=== PATIENT | male | born 1940 | race Hispanic/Latino ===

== ENCOUNTER 2017-06-02 06:43 | Emergency (ER) | payer MEDICARE, OTHER ==
[2017-06-02 06:54] VITALS: BMI 25.0
[2017-06-02 07:01] VITALS: RESP 18; TEMP 98.3
[2017-06-02] MEDS ORDERED: Oxycodone/Acetaminophen 5/325 mg Tab PO STA (07:28)
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
--- NOTE | 2017-06-02 08:02 | CT ---
PROCEDURE: CT HEAD WITHOUT CONTRAST. HISTORY: fall with persistent headache COMPARISON: 11/17/2014 TECHNIQUE: Axial computed tomography images were obtained through the head/brain without intravenous contrast. Radiation dose: Total exam DLP = 629 mGy-cm. This CT exam was performed using one or more of the following dose reduction techniques: Automated exposure control, adjustment of the mA and/or kV according to patient size, and/or use of iterative reconstruction technique. FINDINGS: HEMORRHAGE: No intracranial hemorrhage. BRAIN: No mass effect or edema. Chronic microvascular changes are seen in the periventricular white matter. There is focal encephalomalacia and atrophy in the right frontal lobe VENTRICLES: Unremarkable. No hydrocephalus. CALVARIUM: Unremarkable. PARANASAL SINUSES: Unremarkable as visualized. No significant inflammatory changes. MASTOID AIR CELLS: Unremarkable as visualized. No inflammatory changes. OTHER FINDINGS: None. IMPRESSION: No acute findings
[2017-06-02 08:27] VITALS: BP 127/86; PULSE 95; O2SAT 98
== END 2017-06-02 08:32 | disposition home or self-care (01) ==
LOC: ED 06:43
DX: S06.0X0A Concussion without loss of consciousness, initial encounter (principal); F17.210 Nicotine dependence, cigarettes, uncomplicated; Y04.8XXA Assault by other bodily force, initial encounter; Y92.89 Other specified places as the place of occurrence of the external cause

== ENCOUNTER 2017-12-02 20:41 | Inpatient (IN) | payer MEDICARE, OTHER ==
[2017-12-02 21:02] VITALS: BMI 21.7
--- NOTE | 2017-12-02 21:21 | ED PDOC ---
Arrival/HPI - General Chief Complaint: Altered Mental Status Time Seen by Provider: 12/02/17 20:55 Historian: Spouse EM Caveat: Altered Mental Status - History of Present Illness Narrative History of Present Illness (Text): 12/02/17 21:18 77 year old male, whose past medical history includes COPD and per-diabetes, presents to the emergency department accompanied by for Altered Mental Status. As per patient's , patient was himself yesterday, but began not feeling well. Patient this afternoon was not responding and not behaving as himself. Patient is a heavy drinker and his last drink was 3 days ago . Patient denies any current pain. HPI and ROS limited due to patient's altered mental status. PMD: Dr. Rivera Past Medical History - Provider Review Nursing Documentation Reviewed: Yes - Infectious Disease Hx of Infectious Diseases: None - Tetanus Immunization Tetanus Immunization: Unknown - Cardiac Hx Cardiac Disorders: Yes Hx Hypertension: Yes - Pulmonary Hx Respiratory Disorders: Yes Hx Chronic Obstructive Pulmonary Disease (COPD): Yes - Endocrine/Metabolic Other/Comment: borderline diabetic - Genitourinary/Gynecological Hx Incontinence: Yes - Psychiatric Hx Substance Use: No - Past Surgical History Past Surgical History: No Previous - Anesthesia Hx Anesthesia: No Hx Anesthesia Reactions: No Hx Malignant Hyperthermia: No - Suicidal Assessment Feels Threatened In Home Enviroment: No Family/Social History - Physician Review Nursing Documentation Reviewed: Yes Family/Social History: No Known Family HX Smoking Status: Heavy Smoker > 10 Cigarettes Daily Hx Alcohol Use: Yes (4 beers and 5 shots of bourbon per day.) Hx Substance Use: No Hx Substance Use Treatment: No Allergies/Home Meds Allergies/Adverse Reactions: Allergies No Known Allergies Allergy (Verified 12/02/17 20:47) Home Medications: Home Meds Medication Instructions Recorded Confirmed Albuterol HFA [Ventolin HFA 90 1 puff INH PRN PRN 12/02/17 12/02/17 mcg/actuation (8 g)] Metoprolol Tartrate [Lopressor] 25 mg PO DAILY 12/02/17 12/02/17 Review of Systems - Physician Review All systems were reviewed & negative as marked: Yes - Review of Systems Systems not reviewed;Unavailable: Altered Mental Status Physical Exam Vital Signs Reviewed: Yes Vital Signs Temp Pulse Resp BP Pulse Ox 12/02/17 22:49 99.1 F 90 18 128/68 100 12/02/17 20:57 100 H 17 123/87 94 L Blood Pressure: Normal Pulse: Tachycardic Respiratory Rate: Normal Appearance: Positive for: Well-Appearing, Non-Toxic, Other (Poor hygiene, frail and ordorous) Pain Distress: None Mental Status: Positive for: Alert and Oriented X 3, other (Drowsy) - Systems Exam Head: Present: Atraumatic, Normocephalic Pupils: Present: PERRL Extroacular Muscles: Present: EOMI Conjunctiva: Present: Normal Mouth: Present: Dry Neck: Present: Normal Range of Motion Respiratory/Chest: Present: Clear to Auscultation, Good Air Exchange. No: Respiratory Distress, Accessory Muscle Use Cardiovascular: Present: Regular Rate and Rhythm, Normal S1, S2. No: Murmurs Abdomen: No: Tenderness, Distention, Peritoneal Signs Back: Present: Normal Inspection Upper Extremity: Present: Normal Inspection. No: Cyanosis, Edema Lower Extremity: Present: Normal Inspection. No: Edema Neurological: Present: GCS=15, CN II-XII Intact, Motor Func Grossly Intact, Normal Sensory Function, Other (Normal strength and sensation) Skin: Present: Warm, Dry, Normal Color. No: Rashes Psychiatric: Present: Alert, Oriented x 3, Other (Drowsy) Medical Decision Making ED Course and Treatment: 12/02/17 21:18 Impression: 77 year old male presents for AMS, last time known well yesterday, unknown time ; family saw him today at noon for the first time with this AMS Differential Diagnosis included but are not limited to: Dehydration VS infection VS alcohol withdrawal delirium VS Stroke Plan: -- VBG -- Head CT w/o contrast -- EKG -- Labs -- Chest X-ray -- Blood Culture, Urine Culture -- Glucose, Blood, POC -- Urinary Straight Catherization -- Urinalysis -- Reassess and disposition Prior Visits: Notes and results from previous visits were reviewed. Patient was last seen in the emergency department on Progress Notes: EKG shows NSR at [address] elevation. Normal Intervals. Interpreted by me. CXR Impression: As read by me, left lower lobe pneumonia. EXAM: CT Head Without Intravenous Contrast Dictated and Authenticated by: Coby Knott MD 12/02/2017 10:09 PM IMPRESSION: Streak artifact limits evaluation of the skull base. No evidence of acute intracranial hemorrhage. Correlate clinically 12/02/17 23:22 Case discussed with Horologist and Dr. Barriga who is aware and agrees to come to the ER for an ICU consult. WBC elevated. CXR ?LLPNA but may be positional will tx with Cefepime 12/02/17 23:38 Dr. Barriga seen and evaluated patient. Accepts patient into hospitalist service to Telemetry for AMS. We agree that this is possibly alcohol withdrawal but cannot exclude CVA. Aspirin PO given. Currently no tremors or tongue fasculations but altered so will Ativan 2mg IV and CIWA ordered. - Lab Interpretations Lab Results: 12/02/17 22:06 12/02/17 22:06 Lab Results 12/02/17 22:45: PT 13.6 H, INR 1.19 H, APTT 32.9 12/02/17 22:06: pO2 143 H, VBG pH 7.40, VBG pCO2 41.0, VBG HCO3 25.4, VBG Total CO2 26.7, VBG O2 Sat (Calc) 99.2 H, VBG Base Excess 0.5, VBG Potassium 3.8, Sodium 135.0, Chloride 101.0, Glucose 160 H, Lactate 1.2, FiO2 21.0, Venous Blood Potassium 3.8 12/02/17 22:06: Alcohol, Quantitative < 10 12/02/17 22:06: Salicylates < 1 L, Acetaminophen < 10.0 L 12/02/17 22:06: Ammonia < 9 L 12/02/17 22:06: Sodium 138, Chloride 100, Potassium 4.0, Carbon Dioxide 26, Anion Gap 15, BUN 16, Creatinine 0.9, Est GFR ( Amer) > 60, Est GFR (Non- Af Amer) > 60, Random Glucose 156 H, Calcium 9.4, Phosphorus 3.0, Magnesium 1.8 , Total Bilirubin 0.6, AST 27, ALT 25, Alkaline Phosphatase 53, Lactate Dehydrogenase 449, Total Creatine Kinase 90, Troponin I 0.01, Total Protein 7.4 , Albumin 4.1, Globulin 3.3, Albumin/Globulin Ratio 1.2 12/02/17 22:06: WBC 14.5 H D, RBC 5.50, Hgb 15.7, Hct 45.9, MCV 83.5, MCH 28.5, MCHC 34.2, RDW 14.3, Plt Count 270, MPV 9.8, Gran % 77.2 H, Lymph % (Auto) 10.5 L, [place] % (Auto) 12.1 H, Eos % (Auto) 0.1 L, Baso % (Auto) 0.1, Gran # 11.18 H, Lymph # (Auto) 1.5, [place] # (Auto) 1.8 H, Eos # (Auto) 0.0, Baso # (Auto) 0.02 12/02/17 21:31: POC Glucose (mg/dL) 128 H I have reviewed the lab results: Yes - RAD Interpretation Radiology Orders: 12/02/17 21:17 HEAD W/O CONTRAST [CT] Stat 12/02/17 21:19 CHEST PORTABLE [RAD] Stat - EKG Interpretation Interpreted by ED Physician: Yes Type: 12 lead EKG - Medication Orders Current Medication Orders: Sodium Chloride (Sodium Chloride 0.9%) 1,000 mls @ 250 mls/hr IV .Q4H MATT Last Admin: 12/02/17 22:59 Dose: 250 mls/hr eMAR Start Stop Document 12/02/17 22:59 J[facility] (Rec: 12/02/17 22:59 [id number] Intravenous Solution Start Date 12/02/17 Start Time 22:59 Discontinued Medications Albuterol/Ipratropium (Duoneb 3 Mg/0.5 Mg (3 Ml) Ud) 3 ml IH STAT STA Stop: 12/02/17 21:46 Last Admin: 12/02/17 22:48 Dose: 3 ml Cefepime HCl (Maxipime 2gm) 2 gm in 100 mls @ 100 mls/hr IVPB STAT STA PRN Reason: Protocol Stop: 12/02/17 23:36 Last Admin: 12/02/17 22:59 Dose: 100 mls/hr eMAR Start Stop Document 12/02/17 22:59 JOL (Rec: 12/02/17 22:59 [id number]) Intravenous Solution Start Date 12/02/17 Start Time 22:59 End Date 12/02/17 End time 23:59 Total Infusion Time 60 Lorazepam (Ativan) 2 mg IVP ONCE ONE PRN Reason: Protocol Stop: 12/02/17 23:38 NIHSS Scale ([place]) Time Performed: 20:55 - How Severe is the Stoke Baseline Level of Consciousness: 1=Drowsy LOC to Questions: 0=Both comments correct LOC to commands: 0=Obeys both correctly Best Gaze: 0=Normal Visual: 0=No visual loss Facial: 0=Normal Motor Arm - Left: 1=Drift noted before 10 sec Motor Arm - Right: 1=Drift noted before 10 sec Motor Leg - Left: 1=Drift before 5 sec Motor Leg - Right: 1=Drift before 5 sec Limb Ataxia: 1=Present Upper or Lower Sensory: 0=Normal Best Language: 0=No aphasia Dysarthia: 0=Normal articulation Extinction & Inattention (Neglect): 0=Normal, no object Score: 6 Risk Level: Mod Stroke Risk rTPA Inclusion/Exclusion - Refusal of Treatment Patient Refused Treatment: No - Inclusion Criteria for Altepase Patient is 18 years or Older: Yes The Clinical Diagnosis of Ischemic Stroke That is Causing a Potentially Disabling Neurological Deficit: No Time of Onset is Well Established to be Less Than 270 Minute Before Treatment Would Begin: No Risk/Benefit Discussed With Patient/Family Member Present: No - Scribe Statement The provider has reviewed the documentation as recorded by the Bonifacio Chapinibe Attestation: All medical record entries made by the Tavaresibe were at my direction and personally dictated by me. I have reviewed the chart and agree that the record accurately reflects my personal performance of the history, physical exam, medical decision making, and the department course for this patient. I have also personally directed, reviewed, and agree with the discharge instructions and disposition. Disposition/Present on Arrival - Present on Arrival Any Indicators Present on Arrival: No History of DVT/PE: No History of Uncontrolled Diabetes: No Urinary Catheter: No History of Decub. Ulcer: No History Surgical Site Infection Following: None - Disposition Have Diagnosis and Disposition been Completed?: Yes Diagnosis: Altered mental status, Dehydration, Alcohol withdrawal, Pneumonia Disposition Time: 23:49 Patient Plan: Admission Condition: GUARDED Referrals: Erum Buck MD [Primary Care Provider] - Follow up with primary Forms: [employer] (Turkish)
[2017-12-02] MEDS ORDERED: Albuterol-Ipratrop 3 mg / 0.5 (3 ml) UD IH STA (21:45)
[2017-12-02 22:12] LABS: VENOUS BLOOD GAS BASE EXCESS 0.5 mmol/L (0.0-2.0); VENOUS BLOOD GAS PO2 143 mm/Hg (30-55)
[2017-12-02 22:13] LABS: BASO # 0.02 K/mm3 (0.0-2.0); BASO % 0.1 % (0.0-3.0); EOS % 0.1 % (1.5-5.0); GRAN # 11.18 (1.4-6.5); GRAN % 77.2 % (50.0-68.0); HEMOGLOBIN 15.7 g/dL (14.0-18.0); LYMPH # 1.5 (1.2-3.4); LYMPH % 10.5 % (22.0-35.0); MEAN CELL VOLUME 83.5 fl (80.0-105.0); MEAN CORPUSCULAR HEMOGLOBIN 28.5 pg (25.0-35.0); MEAN CORPUSCULAR HGB CONC 34.2 g/dl (31.0-37.0); MEAN PLATELET VOLUME 9.8 fl (7.0-11.0); MONO # 1.8 (0.1-0.6); MONO % 12.1 % (1.0-6.0); RBC 5.5 10^6/uL (3.5-6.1); RED CELL DISTRIBUTION WIDTH 14.3 % (11.5-14.5); WHITE BLOOD COUNT 14.5 10^3/ul (4.5-11.0)
[2017-12-02 22:23] LABS: ACETAMINOPHEN < 10.0 ug/ml (10.0-20.0); SALICYLATE < 1 mg/dL (2.0-20.0)
[2017-12-02 22:27] LABS: ALB/GLOB RATIO 1.2 (1.1-1.8); ALBUMIN 4.1 g/dL (3.0-4.8); ALT/SGPT 25 U/L (7-56); AST/SGOT 27 U/L (17-59); BLOOD UREA NITROGEN 16 mg/dL (7-21); CALCIUM 9.4 mg/dL (8.4-10.5); GFR AFRICAN-AMERICAN > 60; GFR NON-AFRICAN AMERICAN > 60
[2017-12-02 22:35] LABS: TROPONIN I 0.01 ng/mL
[2017-12-02] MEDS ORDERED: Cefepime IV 2 gm in NS 2 GM/100 ML BAG IVPB STA (22:37)
[2017-12-02] MEDS ORDERED: Sodium Chloride 0.9% 1,000 ML IV SCH (23:00)
[2017-12-02 23:06] LABS: INR 1.19 (0.93-1.08); PARTIAL THROMBOPLASTIN TIME 32.9 Seconds (25.1-36.5); PROTHROMBIN TIME 13.6 SECONDS (9.4-12.5)
[2017-12-03] MEDS ORDERED: Vitamins A & D Oint UD Foilpak TOP PRN
[2017-12-03] MEDS ORDERED: Albuterol-Ipratrop 3 mg / 0.5 (3 ml) UD IH PRN
[2017-12-03 00:09] LABS: HDL CHOLESTEROL 59 mg/dL (29-60)
[2017-12-03] MEDS ORDERED: Multivitamin (MVI) 10 ML, Thiamine 100 MG, Folic Acid 1 MG in Sodium Chloride 0.9% 1,00... IV SCH (00:15)
[2017-12-03 00:21] LABS: LDL CHOLESTEROL 52 mg/dL (0-129)
--- NOTE | 2017-12-03 00:56 | CP.PCM.HP ---
<Perico Royal - Last Filed: 12/03/17 01:09> History of Present Illness - History of Present Illness History of Present Illness: Mr. Helms is a 77 year old male with a past medical history significant for COPD, NIDDM2, alcohol abuse and tobacco abuse who presents with two days of AMS. Patient at bedside to provide HPI information. Patient oriented to person, town and year. Patients reports that patient at baseline communicates verbally, is independent with ADL's and ambulates without assistance. For the past two days, patient has been sitting in his chair staring off into the distance without the television on, which is unusual for him. She reports that brought him in today because she noticed that he urinated on the couch. Patients also endorses that patient has had no complaints immediately prior to or during this episode. While he usually drinks alcohol daily, patient has not had anything to drink for the past three days. She also denies any recent medication changes. Patient uncooperative with ROS questioning at this time. 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; Lives at home with in [place] Allergies: NKDA Home Medications: As per MAR Present on Admission - Present on Admission Any Indicators Present on Admission: No Review of Systems - Review of Systems Systems not reviewed;Unavailable: Uncooperative Past Patient History - Infectious Disease Hx of Infectious Diseases: None - Tetanus Immunizations Tetanus Immunization: Unknown - Past Social History Smoking Status: Heavy Smoker > 10 Cigarettes Daily - CARDIAC Hx Cardiac Disorders: Yes Hx Hypertension: Yes - PULMONARY Hx Respiratory Disorders: Yes Hx Chronic Obstructive Pulmonary Disease (COPD): Yes - ENDOCRINE/METABOLIC Other/Comment: borderline diabetic - GENITOURINARY/GYNECOLOGICAL Hx Incontinence: Yes - PSYCHIATRIC Hx Substance Use: No - ANESTHESIA Hx Anesthesia: No Hx Anesthesia Reactions: No Hx Malignant Hyperthermia: No Meds Allergies/Adverse Reactions: Allergies Allergy/AdvReac Type Severity Reaction Status Date / Time No Known Allergies Allergy Verified 12/02/17 20:47 Physical Exam - Constitutional Appears: No Acute Distress, Unkempt - Head Exam Head Exam: ATRAUMATIC, NORMOCEPHALIC - Eye Exam Eye Exam: EOMI, Normal appearance, PERRL. absent: Conjunctival injection, Nystagmus, Periorbital swelling, Periorbital tenderness, Scleral icterus Pupil Exam: NORMAL ACCOMODATION, PERRL. absent: Fixed, Irregular, Miosis, Mydriatic, Unequal - ENT Exam ENT Exam: Mucous Membranes Dry - Neck Exam Neck exam: Positive for: Full Rom, Normal Inspection. Negative for: Lymphadenopathy, Meningismus, Tenderness, Thyromegaly - Respiratory Exam Respiratory Exam: Clear to Auscultation Bilateral, NORMAL BREATHING PATTERN. absent: Accessory Muscle Use, Chest Wall Tenderness, Decreased Breath Sounds, Prolonged Expiratory Phase, Rales, Rhonchi, Wheezes, Respiratory Distress, Stridor - Cardiovascular Exam Cardiovascular Exam: REGULAR RHYTHM, RRR, +S1, +S2. absent: Bradycardia, Tachycardia, Clicks, Diastolic murmur, Gallop, Irregular Rhythm, JVD, Rubs, +S4 , Systolic Murmur - GI/Abdominal Exam GI & Abdominal Exam: Normal Bowel Sounds, Soft. absent: Bruit, Diminished Bowel Sounds, Distended, Firm, Guarding, Hernia, Hyperactive Bowel Sounds, Hypoactive Bowel Sounds, Mass, Organomegaly, Pulsatile Mass, Rebound, Rigid, Tenderness - Extremities Exam Extremities exam: Positive for: full ROM, normal capillary refill, normal inspection, pedal pulses present. Negative for: calf tenderness, joint swelling , pedal edema, tenderness - Back Exam Back exam: absent: CVA tenderness (L), CVA tenderness (R), muscle spasm, paraspinal tenderness, rash noted, tenderness, vertebral tenderness - Neurological Exam Additional comments: Oriented to person, town and year - Skin Skin Exam: Dry, Intact, Warm Results - Vital Signs Recent Vital Signs: Last Vital Signs Temp 99.1 F 12/02/17 22:49 Pulse 90 12/02/17 22:49 Resp 18 12/02/17 22:49 BP 128/68 12/02/17 22:49 Pulse Ox 100 12/02/17 22:49 - Labs Result Diagrams: 12/02/17 22:06 12/02/17 22:06 Assessment & Plan - Assessment and Plan (Free Text) Assessment: 77 year old male with a past medical history significant for COPD, NIDDM2, alcohol abuse and tobacco abuse who presents with two days of AMS. Plan: 1. AMS -CT Head without any acute abnormalities or hemorrhage -Chest X-Ray pending official radiologist interpretation; ED physician interpreted this to show LLL PNA with one dose Cefepime given in ED and procal pending -EKG showed sinus tachycardia with normal intervals and no changes in ST segments -ABG pending -UA/UDS pending -MRI Brain with/without contrast in AM -NPO with swallow evaluation pending -Neurochecks Q2 -Sue catheter in place -Maintain HOB above 30 degrees -Seizure, Aspiration and Fall precautions in place -Neurology consulted, all recommendations appreciated 2. History of Alcohol Withdrawal/Abuse -Alcohol <10 -Ativan 1mg IVP Q6 PRN -Banana Bag at 200mls/hr -Zofran PRN for N/V -Precautions as noted above -CIWA Q4 -Cessation recommendations provided 3. History of COPD -Duonebs Q4H MATT and Q2H PRN -Maintain O2 saturation above 92% 4. History of NIDDM2 -SSI-Low and Accuchecks Q6 -A1c pending 5. History of Tobacco Abuse -Nicotine TD 21mg daily -Cessation recommendations provided GI Prophylaxis: Protonix DVT Prophylaxis: Heparin Patient seen and case discussed with attending, Dr. Barriga. Brayan PGY1 - Date & Time Date: 12/03/17 Time: 00:48 Decision To Admit - Pt Status Changed To: Hospital Disposition Of: Inpatient Admission - Admit Certification Admit to Inpatient:: After my assessment, the patient will require hospitalization for at least two midnights. This is because of the severity of symptoms shown, intensity of services needed, and/or the medical risk in this patient being treated as an outpatient. - . Bed Request Type: Telemetry <Antonino Barriga - Last Filed: 12/03/17 02:11> Results - Vital Signs Recent Vital Signs: Last Vital Signs Temp 99.1 F 12/02/17 22:49 Pulse 90 12/02/17 22:49 Resp 18 12/02/17 22:49 BP 128/68 12/02/17 22:49 Pulse Ox 100 12/02/17 22:49 - Labs Result Diagrams: 12/02/17 22:06 12/02/17 22:06 Attending/Attestation - Attestation I have personally seen and examined this patient.: Yes I have fully participated in the care of the patient.: Yes I have reviewed all pertinent clinical information: Yes Notes (Text): 12/03/17 02:10 Patient was seen when he was in bed # 4 in the ER. Agree with history, physical examination, assessment and plan.
[2017-12-03] MEDS: Insulin Reg-LOW-Coverage SC SCH ×4 (02:04→19:45)
[2017-12-03 03:47] LABS: URINE BILIRUBIN NEGATIVE (NEGATIVE); URINE BLOOD TRACE-INTACT (NEGATIVE); URINE GLUCOSE (UA) NEGATIVE (NEGATIVE); URINE LEUKOCYTE ESTERASE NEGATIVE Leu/uL (NEGATIVE); URINE PROTEIN 30 mg/dL (<30 mg/dL); URINE UROBILINOGEN 0.2 E.U./dL (<1 E.U./dL)
[2017-12-03 03:48] LABS: URINE APPEARANCE SL CLOUDY (CLEAR); URINE COLOR YELLOW (YELLOW)
[2017-12-03 04:07] LABS: URINE BACTERIA FEW (NEG); URINE RBC 0 - 2 /hpf (0-2); URINE WBC NEGATIVE /hpf (0-6)
[2017-12-03 04:22] LABS: BARBITURATES, UR NEGATIVE (NEGATIVE); BENZODIAZEPINES, UR NEGATIVE (NEGATIVE); OPIATES, UR NEGATIVE (NEGATIVE); PHENCYCLIDINE, UR NEGATIVE (NEGATIVE)
[2017-12-03 07:11] LABS: BASO # 0.02 K/mm3 (0.0-2.0); BASO % 0.1 % (0.0-3.0); EOS % 0.3 % (1.5-5.0); GRAN # 10.41 (1.4-6.5); GRAN % 73.5 % (50.0-68.0); HEMOGLOBIN 14.5 g/dL (14.0-18.0); LYMPH # 1.7 (1.2-3.4); MEAN CELL VOLUME 83.8 fl (80.0-105.0); MEAN CORPUSCULAR HEMOGLOBIN 27.9 pg (25.0-35.0); MEAN CORPUSCULAR HGB CONC 33.3 g/dl (31.0-37.0); MEAN PLATELET VOLUME 9.9 fl (7.0-11.0); MONO % 14.1 % (1.0-6.0); RBC 5.19 10^6/uL (3.5-6.1); RED CELL DISTRIBUTION WIDTH 14.5 % (11.5-14.5); WHITE BLOOD COUNT 14.2 10^3/ul (4.5-11.0)
[2017-12-03 07:45] LABS: ALB/GLOB RATIO 1.2 (1.1-1.8); ALBUMIN 3.6 g/dL (3.0-4.8); ALT/SGPT 26 U/L (7-56); AST/SGOT 29 U/L (17-59); BLOOD UREA NITROGEN 14 mg/dL (7-21); CALCIUM 8.7 mg/dL (8.4-10.5); GFR AFRICAN-AMERICAN > 60; GFR NON-AFRICAN AMERICAN > 60
--- NOTE | 2017-12-03 08:19 | CP.PCM.CON ---
History of Present Illness - History of Present Illness History of Present Illness: Neuro Consult note for Dr. Spring Reason for consult: AMS please note history as per EMR as patient is altered and there was no family at bedside 77yo male PMHx COPD, NIDDM2, alcohol and tobacco abuse [place] [facility] [place] for 2 days of AMS. As per EMR, reported that the patient at baseline communicates verbally, is independent with ADL's and ambulates without assistance. For two days prior to being admitted however the patient was staring off and also had an episode of urinary incontinence. As per EMR the patient's also endorsed that he had no complaints immediately prior to or during this episode. While he usually drinks alcohol daily, patient has not had anything to drink for the past three days. She also denied any recent changes in medication. 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; Lives at home with in [place] ALL: NKDA Meds: As per MAR Review of Systems - Review of Systems Systems not reviewed;Unavailable: Altered Mental Status Past Patient History - Infectious Disease Hx of Infectious Diseases: None - Tetanus Immunizations Tetanus Immunization: Unknown - Past Social History Smoking Status: Unknown If Ever Smoked - CARDIAC Hx Cardiac Disorders: Yes Hx Hypercholesterolemia: Yes Hx Hypertension: Yes - PULMONARY Hx Respiratory Disorders: Yes Hx Chronic Obstructive Pulmonary Disease (COPD): Yes - NEUROLOGICAL Hx Neurological Disorder: No - HEENT Hx HEENT Problems: No - RENAL Hx Chronic Kidney Disease: No - ENDOCRINE/METABOLIC Hx Endocrine Disorders: Yes Other/Comment: borderline diabetic - HEMATOLOGICAL/ONCOLOGICAL Hx Blood Disorders: No - INTEGUMENTARY Hx Dermatological Problems: No - MUSCULOSKELETAL/RHEUMATOLOGICAL Hx Musculoskeletal Disorders: No Hx Falls: No (pt denies) - GASTROINTESTINAL Hx Gastrointestinal Disorders: No - GENITOURINARY/GYNECOLOGICAL Hx Genitourinary Disorders: Yes Hx Incontinence: Yes - PSYCHIATRIC Hx Psychophysiologic Disorder: Yes Hx Substance Use: No (denies) Other/Comment: Alcohol use (4 beers and 5 shots of bourdon daily) - SURGICAL HISTORY Hx Surgeries: No - ANESTHESIA Hx Anesthesia: No Hx Anesthesia Reactions: No Hx Malignant Hyperthermia: No Meds Allergies/Adverse Reactions: Allergies Allergy/AdvReac Type Severity Reaction Status Date / Time No Known Allergies Allergy Verified 12/02/17 20:47 - Medications Medications: Current Medications Albuterol/Ipratropium (Duoneb 3 Mg/0.5 Mg (3 Ml) Ud) 3 ml IH Q2H PRN PRN Reason: Shortness of Breath Albuterol/Ipratropium (Duoneb 3 Mg/0.5 Mg (3 Ml) Ud) 3 ml IH [id number] [facility] Heparin Sodium (Porcine) (Heparin) 5,000 units SC Q12 MATT PRN Reason: Protocol Multivitamins/Vitamin C 10 ml/Thiamine HCl 100 mg/ Folic Acid 1 mg/ Sodium Chloride 1,011.2 mls @ 200 mls/hr IV .Q5H4M [facility] Last Admin: 12/03/17 06:09 Dose: 200 mls/hr Ceftriaxone Sodium (Rocephin 1 Gram Ivpb) 1 gm in 100 mls @ 100 mls/hr IVPB DAILY [facility] PRN Reason: Protocol Azithromycin (Zithromax 500mg In Ns) 500 mg in 250 mls @ 167 mls/hr IVPB DAILY [facility] PRN Reason: Protocol Insulin Human Regular (Humulin R Low) 0 units SC Q6H MATT PRN Reason: Protocol Last Admin: 12/03/17 08:11 Dose: Not Given Lorazepam (Ativan) 1 mg IVP Q6H PRN; Protocol PRN Reason: Symptoms of alcohol withdrawl Nicotine (Nicoderm Cq) 1 patch TD DAILY [facility] Ondansetron HCl (Zofran Inj) 4 mg IVP Q4H PRN PRN Reason: Nausea/Vomiting Pantoprazole Sodium (Protonix Inj) 40 mg IVP DAILY [facility] Vitamin A (Vitamin A & D Oint Ud Foilpak) 1 ea TOP Q2 PRN PRN Reason: Please use for dry lips Physical Exam - Constitutional Appears: Confused, Other (uncooperative with exam) - Neurological Exam Neurological exam: Altered Additional comments: moving all extremities and withdraws to pain - Psychiatric Exam Psychiatric exam: Flat Affect - Skin Skin Exam: Dry, Intact Results - Vital Signs Recent Vital Signs: Last Vital Signs Temp 98.4 F 12/03/17 06:00 Pulse 74 12/03/17 06:00 Resp 20 12/03/17 06:00 BP 149/80 12/03/17 06:00 Pulse Ox 96 12/03/17 06:00 - Labs Result Diagrams: 12/03/17 06:30 12/03/17 06:30 Labs: Laboratory Results - last 24 hr 12/03/17 12/03/17 12/03/17 02:19 02:19 06:30 WBC 14.2 H RBC 5.19 Hgb 14.5 Hct 43.5 MCV 83.8 MCH 27.9 MCHC 33.3 RDW 14.5 Plt Count 258 MPV 9.9 Gran % 73.5 H Lymph % (Auto) 12.0 L [place] % (Auto) 14.1 H Eos % (Auto) 0.3 L Baso % (Auto) 0.1 Gran # 10.41 H Lymph # (Auto) 1.7 [place] # (Auto) 2.0 H Eos # (Auto) 0.0 Baso # (Auto) 0.02 Sodium Potassium Chloride Carbon Dioxide Anion Gap BUN Creatinine Est GFR ( Amer) Est GFR (Non-Af Amer) Random Glucose Calcium Phosphorus Magnesium Total Bilirubin AST ALT Alkaline Phosphatase NT-Pro-B Natriuret Pep Total Protein Albumin Globulin Albumin/Globulin Ratio Urine Color Yellow Urine Appearance Sl cloudy Urine pH 6.0 Ur Specific [place] 1.020 Urine Protein 30 H Urine Glucose (UA) Negative Urine Ketones 15 H Urine Blood Trace-intact H Urine Nitrate Negative Urine Bilirubin Negative Urine Urobilinogen 0.2 Ur Leukocyte Esterase Negative Urine RBC 0 - 2 Urine WBC Negative Ur Epithelial Cells 4 - 5 Urine Bacteria Few Urine Other Mucus Urine Opiates Screen Negative Urine Methadone Screen Negative Ur Barbiturates Screen Negative Ur Phencyclidine Scrn Negative Ur Amphetamines Screen Negative U Benzodiazepines Scrn Negative U Oth Cocaine Metabols Negative U Cannabinoids Screen Negative 12/03/17 12/03/17 06:30 06:30 WBC RBC Hgb Hct MCV MCH MCHC RDW Plt Count MPV Gran % Lymph % (Auto) [place] % (Auto) Eos % (Auto) Baso % (Auto) Gran # Lymph # (Auto) [place] # (Auto) Eos # (Auto) Baso # (Auto) Sodium 140 Potassium 3.9 Chloride 104 Carbon Dioxide 26 Anion Gap 13 BUN 14 Creatinine 0.8 Est GFR ( Amer) > 60 Est GFR (Non-Af Amer) > 60 Random Glucose 119 H Calcium 8.7 Phosphorus 2.9 Magnesium 1.8 Total Bilirubin 0.6 AST 29 ALT 26 Alkaline Phosphatase 51 NT-Pro-B Natriuret Pep 495 H Total Protein 6.6 Albumin 3.6 Globulin 3.0 Albumin/Globulin Ratio 1.2 Urine Color Urine Appearance Urine pH Ur Specific [place] Urine Protein Urine Glucose (UA) Urine Ketones Urine Blood Urine Nitrate Urine Bilirubin Urine Urobilinogen Ur Leukocyte Esterase Urine RBC Urine WBC Ur Epithelial Cells Urine Bacteria Urine Other Urine Opiates Screen Urine Methadone Screen Ur Barbiturates Screen Ur Phencyclidine Scrn Ur Amphetamines Screen U Benzodiazepines Scrn U Oth Cocaine Metabols U Cannabinoids Screen Assessment & Plan - Assessment and Plan (Free Text) Assessment: 77yo male PMHx COPD, NIDDM2, alcohol and tobacco abuse presented [place] [facility] [place] for 2 days of AMS Plan: -AMS likely secondary to seizures given patient's clinical picture -load patient with 1gm Keppra and start patient on Keppra 500 bid -Head CT: chronic changes - generalized cererbal atrophy and periventricular chronic microvascular changes with chronic appearing right frontal lobe subcortical encephalomalacia changes stable since 06/02/2017. No interval hemorrhage or mass effect seen. -CTA head/neck: heavily calcified plaque at the L carotid bifurcation with complete occlusion of the internal carotid; occlusion of the left internal carotid. -f/u MRI -f/u EEG -NPO -seizure and aspiration precautions -fall risk -HoB above [address] Saw Nelson PGY2
[2017-12-03] MEDS: Albuterol-Ipratrop 3 mg / 0.5 (3 ml) UD IH SCH ×4 (08:25→20:05)
[2017-12-03 08:41] LABS: HDL CHOLESTEROL 48 mg/dL (29-60)
--- NOTE | 2017-12-03 08:43 | CT ---
PROCEDURE: CT HEAD WITHOUT CONTRAST. HISTORY: altered mental status COMPARISON: 06/02/2017 TECHNIQUE: Axial computed tomography images were obtained through the head/brain without intravenous contrast. Radiation dose: Total exam DLP = 979 mGy-cm. This CT exam was performed using one or more of the following dose reduction techniques: Automated exposure control, adjustment of the mA and/or kV according to patient size, and/or use of iterative reconstruction technique. FINDINGS: HEMORRHAGE: No intracranial hemorrhage. BRAIN: No mass effect or edema. There is generalized cerebral atrophy and periventricular chronic microvascular changes with chronic appearing right frontal lobe subcortical encephalomalacia changes stable since 06/02/2017 VENTRICLES: Ventricular size appropriate to the atrophy and age -similar-appearing CALVARIUM: Unremarkable. PARANASAL SINUSES: Minimal mucosal thickening of the ethmoidal and bilateral maxillary sinuses. MASTOID AIR CELLS: Unremarkable as visualized. No inflammatory changes. OTHER FINDINGS: Atherosclerotic vascular calcifications present. . IMPRESSION: Chronic changes as above. No interval hemorrhage or mass effect seen. Concordant results (preliminary interpretation) provided by [facility].
[2017-12-03 08:51] LABS: LDL CHOLESTEROL 44 mg/dL (0-129)
--- NOTE | 2017-12-03 09:34 | CT ---
PROCEDURE: CT Angiography of the neck with contrast HISTORY: ams COMPARISON: None available. TECHNIQUE: Contiguous axial images of the neck were obtained from the level of the skull-base to the superior mediastinum in the arteriographic phase of enhancement. Coronal and sagittal reformats or also generated. IV contrast dose: Radiation Dose - DLP: mGy-cm This CT exam was performed using one or more of the following dose reduction techniques: Automated exposure control, adjustment of the mA and/or kV according to patient size, and/or use of iterative reconstruction technique. FINDINGS: RIGHT CAROTID ARTERIES: There is a calcified plaque in the right carotid bifurcation. There is no significant stenosis. LEFT CAROTID ARTERIES: There is a heavily calcified plaque at the left carotid bifurcation with complete occlusion of the internal carotid VERTEBRAL ARTERIES: Right Vertebral Artery: Normal. Left Vertebral Artery: Normal. OTHER FINDINGS: None. IMPRESSION: Heavily calcified plaque at the left carotid bifurcation with complete occlusion of the internal carotid CT Angiography of the Brain. HISTORY: ams COMPARISON: None available. TECHNIQUE: CT angiography of the intracranial arteries was performed. Coronal and sagittal maximum intensity projection reformated images were generated. This CT exam was performed using one or more of the following dose reduction techniques: Automated exposure control, adjustment of the mA and/or kV according to patient size, and/or use of iterative reconstruction technique. FINDINGS: INTERNAL CEREBRAL ARTERIES: Occlusion of the left internal carotid ANTERIOR CEREBRAL ARTERIES: Unremarkable. A1 and A2 segments are widely patent. Smaller distal branches unremarkable, as visualized. MIDDLE CEREBRAL ARTERIES: Unremarkable. M1 and M2 segments are widely patent. Perisylvian branches grossly symmetric. POSTERIOR CIRCULATION: Basilar Artery: Unremarkable. Distal Vertebral Arteries: Unremarkable. Posterior Cerebral Arteries: Unremarkable. Posterior Inferior Cerebellar Arteries: Unremarkable. ANEURYSM/ VASCULAR MALFORMATIONS: None. OTHER FINDINGS: None. IMPRESSION: Occlusion of the left internal carotid.
[2017-12-03] MEDS: cefTRIAXone 1 gm 1 GM/100 ML BAG IVPB SCH (10:03)
--- NOTE | 2017-12-03 10:55 | CP.PCM.CON ---
History of Present Illness - History of Present Illness History of Present Illness: Vascular surgery consult note for Dr. Salmeron HPI: 77 yo M with PMH of COPD, DM, EtOH abuse, and tobacco abuse who initially presented for altered mental status. Consultation requested for complete left ICA stenosis. Patient normally drinks heavily, but had not been drinking for two days prior to presentation. Yesterday, patient was found by his , sitting at home, staring blankly, with repetitive left arm movements, and was responding to questions very slowly, and after multiple repeated prompts. This behavior was strange, relative to his normal behavior according to the spouse. 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 Currently, patient is responding to questions. He is oriented to person, but only intermittently oriented to place and time. He is able to provide some history, and is answering most questions appropriately and obeying most simple commands, but only very slowly after multiple prompts. He denies any pain, nausea, vomiting, fever, chills, diarrhea, recent confusion, or weakness. He reports numbness and tingling in both hands for the past 2-3 days, and a headache for the past 2-3 days. reports that before yesterday, he was acting mostly normal. 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; Lives at home with in [place] Allergies: NKDA Home Medications: Patient is prescribed inhalers, nebulized breathing treatments , and oral antidiabetic medications, but is not complaint with his medications Past Patient History - Infectious Disease Hx of Infectious Diseases: None - Tetanus Immunizations Tetanus Immunization: Unknown - Past Social History Smoking Status: Unknown If Ever Smoked - CARDIAC Hx Cardiac Disorders: Yes Hx Hypercholesterolemia: Yes Hx Hypertension: Yes - PULMONARY Hx Respiratory Disorders: Yes Hx Chronic Obstructive Pulmonary Disease (COPD): Yes - NEUROLOGICAL Hx Neurological Disorder: No - HEENT Hx HEENT Problems: No - RENAL Hx Chronic Kidney Disease: No - ENDOCRINE/METABOLIC Hx Endocrine Disorders: Yes Other/Comment: borderline diabetic - HEMATOLOGICAL/ONCOLOGICAL Hx Blood Disorders: No - INTEGUMENTARY Hx Dermatological Problems: No - MUSCULOSKELETAL/RHEUMATOLOGICAL Hx Musculoskeletal Disorders: No Hx Falls: No (pt denies) - GASTROINTESTINAL Hx Gastrointestinal Disorders: No - GENITOURINARY/GYNECOLOGICAL Hx Genitourinary Disorders: Yes Hx Incontinence: Yes - PSYCHIATRIC Hx Psychophysiologic Disorder: Yes Hx Substance Use: No (denies) Other/Comment: Alcohol use (4 beers and 5 shots of bourdon daily) - SURGICAL HISTORY Hx Surgeries: No - ANESTHESIA Hx Anesthesia: No Hx Anesthesia Reactions: No Hx Malignant Hyperthermia: No Meds Allergies/Adverse Reactions: Allergies Allergy/AdvReac Type Severity Reaction Status Date / Time No Known Allergies Allergy Verified 12/02/17 20:47 - Medications Medications: Current Medications Albuterol/Ipratropium (Duoneb 3 Mg/0.5 Mg (3 Ml) Ud) 3 ml IH Q2H PRN PRN Reason: Shortness of Breath Albuterol/Ipratropium (Duoneb 3 Mg/0.5 Mg (3 Ml) Ud) 3 ml IH [id number] [facility] Last Admin: 12/03/17 08:25 Dose: 3 ml Heparin Sodium (Porcine) (Heparin) 5,000 units SC Q12 [facility] PRN Reason: Protocol Multivitamins/Vitamin C 10 ml/Thiamine HCl 100 mg/ Folic Acid 1 mg/ Sodium Chloride 1,011.2 mls @ 200 mls/hr IV .Q5H4M [facility] Last Admin: 12/03/17 06:09 Dose: 200 mls/hr Ceftriaxone Sodium (Rocephin 1 Gram Ivpb) 1 gm in 100 mls @ 100 mls/hr IVPB DAILY [facility] PRN Reason: Protocol Last Admin: 12/03/17 10:03 Dose: 100 mls/hr Azithromycin (Zithromax 500mg In Ns) 500 mg in 250 mls @ 167 mls/hr IVPB DAILY [facility] PRN Reason: Protocol Insulin Human Regular (Humulin R Low) 0 units SC Q6H [facility] PRN Reason: Protocol Last Admin: 12/03/17 08:11 Dose: Not Given Lorazepam (Ativan) 1 mg IVP Q6H PRN; Protocol PRN Reason: Symptoms of alcohol withdrawl Nicotine (Nicoderm Cq) 1 patch TD DAILY [facility] Last Admin: 12/03/17 10:05 Dose: 1 patch Ondansetron HCl (Zofran Inj) 4 mg IVP Q4H PRN PRN Reason: Nausea/Vomiting Pantoprazole Sodium (Protonix Inj) 40 mg IVP DAILY [facility] Last Admin: 12/03/17 10:05 Dose: 40 mg Vitamin A (Vitamin A & D Oint Ud Foilpak) 1 ea TOP Q2 PRN PRN Reason: Please use for dry lips Physical Exam - Constitutional Appears: Non-toxic, Confused, Chronically Ill - Head Exam Head Exam: ATRAUMATIC, NORMOCEPHALIC - Eye Exam Eye Exam: EOMI, PERRL - ENT Exam ENT Exam: Mucous Membranes Moist - Respiratory Exam Respiratory Exam: Wheezes, NORMAL BREATHING PATTERN - Cardiovascular Exam Cardiovascular Exam: RRR, +S1, +S2 - GI/Abdominal Exam GI & Abdominal Exam: Normal Bowel Sounds, Soft. absent: Tenderness - Neurological Exam Neurological exam: Altered, CN II-XII Intact Additional comments: He is oriented to person, but only intermittently oriented to place and time. Obeying simple commands, answering most questions appropriately, but only very slowly after multiple prompts. Moving all extremities with intent. Equal strength in all four extremities - Skin Skin Exam: Dry, Intact Results - Vital Signs Recent Vital Signs: Last Vital Signs Temp 98.4 F 12/03/17 06:00 Pulse 74 12/03/17 06:00 Resp 20 12/03/17 06:00 BP 149/80 12/03/17 06:00 Pulse Ox 96 12/03/17 06:00 - Labs Result Diagrams: 12/03/17 06:30 12/03/17 06:30 Labs: Laboratory Results - last 24 hr 12/03/17 12/03/17 12/03/17 02:19 02:19 06:30 WBC 14.2 H RBC 5.19 Hgb 14.5 Hct 43.5 MCV 83.8 MCH 27.9 MCHC 33.3 RDW 14.5 Plt Count 258 MPV 9.9 Gran % 73.5 H Lymph % (Auto) 12.0 L Cotton % (Auto) 14.1 H Eos % (Auto) 0.3 L Baso % (Auto) 0.1 Gran # 10.41 H Lymph # (Auto) 1.7 Cotton # (Auto) 2.0 H Eos # (Auto) 0.0 Baso # (Auto) 0.02 Sodium Potassium Chloride Carbon Dioxide Anion Gap BUN Creatinine Est GFR ( Amer) Est GFR (Non-Af Amer) Random Glucose Calcium Phosphorus Magnesium Total Bilirubin AST ALT Alkaline Phosphatase NT-Pro-B Natriuret Pep Total Protein Albumin Globulin Albumin/Globulin Ratio Triglycerides Cholesterol LDL Cholesterol Direct HDL Cholesterol Urine Color Yellow Urine Appearance Sl cloudy Urine pH 6.0 Ur Specific [place] 1.020 Urine Protein 30 H Urine Glucose (UA) Negative Urine Ketones 15 H Urine Blood Trace-intact H Urine Nitrate Negative Urine Bilirubin Negative Urine Urobilinogen 0.2 Ur Leukocyte Esterase Negative Urine RBC 0 - 2 Urine WBC Negative Ur Epithelial Cells 4 - 5 Urine Bacteria Few Urine Other Mucus Urine Opiates Screen Negative Urine Methadone Screen Negative Ur Barbiturates Screen Negative Ur Phencyclidine Scrn Negative Ur Amphetamines Screen Negative U Benzodiazepines Scrn Negative U Oth Cocaine Metabols Negative U Cannabinoids Screen Negative 12/03/17 12/03/17 12/03/17 06:30 06:30 08:00 WBC RBC Hgb Hct MCV MCH MCHC RDW Plt Count MPV Gran % Lymph % (Auto) Cotton % (Auto) Eos % (Auto) Baso % (Auto) Gran # Lymph # (Auto) Cotton # (Auto) Eos # (Auto) Baso # (Auto) Sodium 140 Potassium 3.9 Chloride 104 Carbon Dioxide 26 Anion Gap 13 BUN 14 Creatinine 0.8 Est GFR ( Amer) > 60 Est GFR (Non-Af Amer) > 60 Random Glucose 119 H Calcium 8.7 Phosphorus 2.9 Magnesium 1.8 Total Bilirubin 0.6 AST 29 ALT 26 Alkaline Phosphatase 51 NT-Pro-B Natriuret Pep 495 H Total Protein 6.6 Albumin 3.6 Globulin 3.0 Albumin/Globulin Ratio 1.2 Triglycerides 71 Cholesterol 118 L LDL Cholesterol Direct 44 HDL Cholesterol 48 Urine Color Urine Appearance Urine pH Ur Specific [place] Urine Protein Urine Glucose (UA) Urine Ketones Urine Blood Urine Nitrate Urine Bilirubin Urine Urobilinogen Ur Leukocyte Esterase Urine RBC Urine WBC Ur Epithelial Cells Urine Bacteria Urine Other Urine Opiates Screen Urine Methadone Screen Ur Barbiturates Screen Ur Phencyclidine Scrn Ur Amphetamines Screen U Benzodiazepines Scrn U Oth Cocaine Metabols U Cannabinoids Screen Assessment & Plan - Assessment and Plan (Free Text) Assessment: 77 yo M who initially presented with altered mental status; CTA showed completely occluded left internal carotid artery Plan: - Left ICA occlusion likely chronic; unlikely etiology of AMS; Neuro exam nonfocal; No surgical intervention indicated for completely occluded ICA - f/u neurology recommendations - f/u brain MRI - Further management per primary and neurology Discussed with Dr. Salmeron who agrees with above. Bradley Ann PGY1
--- NOTE | 2017-12-03 11:17 | RAD ---
HISTORY: altered mental status COMPARISON: No prior. FINDINGS: LUNGS: No active pulmonary disease. PLEURA: No significant pleural effusion identified, no pneumothorax apparent. CARDIOVASCULAR: Normal. OSSEOUS STRUCTURES: No significant abnormalities. VISUALIZED UPPER ABDOMEN: Normal. OTHER FINDINGS: None. IMPRESSION: No active disease.
[2017-12-03] MEDS: Azithromycin 500MG/NS 250ml 500 MG/250 ML BAG IVPB SCH (14:29)
--- NOTE | 2017-12-03 16:53 | CARD ---
APPROVED REPORT EKG Measurement Heart [id number] <Conclusion> Poor data quality, interpretation may be adversely affected Normal sinus rhythm Normal ECG
[2017-12-03] MEDS: Multivitamin (MVI) 10 ML, Thiamine 100 MG, Folic Acid 1 MG in Sodium Chloride 0.9% 1,00... IV SCH (17:29)
[2017-12-03] MEDS ORDERED: levETIRAcetam 1,000 MG in Sodium Chloride 0.9% 100 ML IV ONE (17:37)
--- NOTE | 2017-12-03 21:00 | CP.PCM.CON ---
History of Present Illness - History of Present Illness History of Present Illness: Infectious Disease Consultation: December 03, 2017 Mr. Helms is a 77 year old male with a past medical history significant for COPD, NIDDM2, alcohol abuse and tobacco abuse who presents with two days of AMS. Patient at bedside to provide HPI information. Patient oriented to person, town and year. Patients reports that patient at baseline communicates verbally, is independent with ADL's and ambulates without assistance. For the past two days, patient has been sitting in his chair staring off into the distance without the television on, which is unusual for him. She reports that brought him in today because she noticed that he urinated on the couch. Patients also endorses that patient has had no complaints immediately prior to or during this episode. While he usually drinks alcohol daily, patient has not had anything to drink for the past three days. She also denies any recent medication changes. Patient uncooperative with questioning. History obtained from the chart. Family not in the room when I examined the patient. 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 Active Medications Albuterol/Ipratropium (Duoneb 3 Mg/0.5 Mg (3 Ml) Ud) 3 ml IH Q2H PRN PRN Reason: Shortness of Breath Albuterol/Ipratropium (Duoneb 3 Mg/0.5 Mg (3 Ml) Ud) 3 ml IH [id number] [facility] Last Admin: 12/03/17 20:05 Dose: 3 ml Aspirin (Aspirin Supp) 81 mg RC DAILY [facility] Atorvastatin Calcium (Lipitor) 40 mg PO DIN [facility] Heparin Sodium (Porcine) (Heparin) 5,000 units SC Q12 [facility] PRN Reason: Protocol Last Admin: 12/03/17 12:42 Dose: 5,000 units Ceftriaxone Sodium (Rocephin 1 Gram Ivpb) 1 gm in 100 mls @ 100 mls/hr IVPB DAILY [facility] PRN Reason: Protocol Last Admin: 12/03/17 10:03 Dose: 100 mls/hr Azithromycin (Zithromax 500mg In Ns) 500 mg in 250 mls @ 167 mls/hr IVPB DAILY [facility] PRN Reason: Protocol Last Admin: 12/03/17 14:29 Dose: 167 mls/hr Multivitamins/Vitamin C 10 ml/Thiamine HCl 100 mg/ Folic Acid 1 mg/ Sodium Chloride 1,011.2 mls @ 100 mls/hr IV .Q10H7M [facility] Last Admin: 12/03/17 17:29 Dose: 100 mls/hr Levetiracetam (Keppra 500mg Ivpb) 500 mg in 100 mls @ 400 mls/hr IVPB Q12 [facility] Insulin Human Regular (Humulin R Low) 0 units SC Q6H [facility] PRN Reason: Protocol Last Admin: 12/03/17 15:00 Dose: Not Given Lorazepam (Ativan) 1 mg IVP Q6H PRN; Protocol PRN Reason: Symptoms of alcohol withdrawl Last Admin: 12/03/17 12:55 Dose: 1 mg Nicotine (Nicoderm Cq) 1 patch TD DAILY [facility] Last Admin: 12/03/17 10:05 Dose: 1 patch Ondansetron HCl (Zofran Inj) 4 mg IVP Q4H PRN PRN Reason: Nausea/Vomiting Pantoprazole Sodium (Protonix Inj) 40 mg IVP DAILY [facility] Last Admin: 12/03/17 10:05 Dose: 40 mg Thiamine HCl (Vitamin B1 Inj) 100 mg IM DAILY [facility] Vitamin A (Vitamin A & D Oint Ud Foilpak) 1 ea TOP Q2 PRN PRN Reason: Please use for dry lips Family Hx: DM2 - mother ROS: Unable to obtain from the patient, he is uncooperative with questioning. Past Patient History - Infectious Disease Hx of Infectious Diseases: None - Tetanus Immunizations Tetanus Immunization: Unknown - Past Social History Smoking Status: Unknown If Ever Smoked - CARDIAC Hx Cardiac Disorders: Yes Hx Hypercholesterolemia: Yes Hx Hypertension: Yes - PULMONARY Hx Respiratory Disorders: Yes Hx Chronic Obstructive Pulmonary Disease (COPD): Yes - NEUROLOGICAL Hx Neurological Disorder: No - HEENT Hx HEENT Problems: No - RENAL Hx Chronic Kidney Disease: No - ENDOCRINE/METABOLIC Hx Endocrine Disorders: Yes Other/Comment: borderline diabetic - HEMATOLOGICAL/ONCOLOGICAL Hx Blood Disorders: No - INTEGUMENTARY Hx Dermatological Problems: No - MUSCULOSKELETAL/RHEUMATOLOGICAL Hx Musculoskeletal Disorders: No Hx Falls: No (pt denies) - GASTROINTESTINAL Hx Gastrointestinal Disorders: No - GENITOURINARY/GYNECOLOGICAL Hx Genitourinary Disorders: Yes Hx Incontinence: Yes - PSYCHIATRIC Hx Psychophysiologic Disorder: Yes Hx Substance Use: No (denies) Other/Comment: Alcohol use (4 beers and 5 shots of bourdon daily) - SURGICAL HISTORY Hx Surgeries: No - ANESTHESIA Hx Anesthesia: No Hx Anesthesia Reactions: No Hx Malignant Hyperthermia: No Meds Allergies/Adverse Reactions: Allergies Allergy/AdvReac Type Severity Reaction Status Date / Time No Known Allergies Allergy Verified 12/02/17 20:47 - Medications Medications: Current Medications Albuterol/Ipratropium (Duoneb 3 Mg/0.5 Mg (3 Ml) Ud) 3 ml IH Q2H PRN PRN Reason: Shortness of Breath Albuterol/Ipratropium (Duoneb 3 Mg/0.5 Mg (3 Ml) Ud) 3 ml IH [id number] [facility] Last Admin: 12/03/17 20:05 Dose: 3 ml Aspirin (Aspirin Supp) 81 mg RC DAILY [facility] Atorvastatin Calcium (Lipitor) 40 mg PO DIN [facility] Heparin Sodium (Porcine) (Heparin) 5,000 units SC Q12 [facility]ATT PRN Reason: Protocol Last Admin: 12/03/17 12:42 Dose: 5,000 units Ceftriaxone Sodium (Rocephin 1 Gram Ivpb) 1 gm in 100 mls @ 100 mls/hr IVPB DAILY [facility] PRN Reason: Protocol Last Admin: 12/03/17 10:03 Dose: 100 mls/hr Azithromycin (Zithromax 500mg In Ns) 500 mg in 250 mls @ 167 mls/hr IVPB DAILY [facility] PRN Reason: Protocol Last Admin: 12/03/17 14:29 Dose: 167 mls/hr Multivitamins/Vitamin C 10 ml/Thiamine HCl 100 mg/ Folic Acid 1 mg/ Sodium Chloride 1,011.2 mls @ 100 mls/hr IV .Q10H7M [facility] Last Admin: 12/03/17 17:29 Dose: 100 mls/hr Levetiracetam (Keppra 500mg Ivpb) 500 mg in 100 mls @ 400 mls/hr IVPB Q12 [facility] Insulin Human Regular (Humulin R Low) 0 units SC Q6H [facility] PRN Reason: Protocol Last Admin: 12/03/17 15:00 Dose: Not Given Lorazepam (Ativan) 1 mg IVP Q6H PRN; Protocol PRN Reason: Symptoms of alcohol withdrawl Last Admin: 12/03/17 12:55 Dose: 1 mg Nicotine (Nicoderm Cq) 1 patch TD DAILY [facility] Last Admin: 12/03/17 10:05 Dose: 1 patch Ondansetron HCl (Zofran Inj) 4 mg IVP Q4H PRN PRN Reason: Nausea/Vomiting Pantoprazole Sodium (Protonix Inj) 40 mg IVP DAILY [facility] Last Admin: 12/03/17 10:05 Dose: 40 mg Thiamine HCl (Vitamin B1 Inj) 100 mg IM DAILY [facility] Vitamin A (Vitamin A & D Oint Ud Foilpak) 1 ea TOP Q2 PRN PRN Reason: Please use for dry lips Physical Exam - Constitutional Appears: Non-toxic, No Acute Distress, Unkempt, Confused - Head Exam Head Exam: ATRAUMATIC, NORMOCEPHALIC - Eye Exam Eye Exam: EOMI, PERRL Pupil Exam: NORMAL ACCOMODATION, PERRL - ENT Exam ENT Exam: Mucous Membranes Moist, Normal External Ear Exam, TM's Normal Bilaterally - Neck Exam Neck exam: Positive for: Full Rom, Normal Inspection - Respiratory Exam Respiratory Exam: Clear to Auscultation Bilateral, NORMAL BREATHING PATTERN. absent: Rales, Rhonchi, Wheezes - Cardiovascular Exam Cardiovascular Exam: REGULAR RHYTHM, RRR, +S1, +S2 - GI/Abdominal Exam GI & Abdominal Exam: Normal Bowel Sounds, Soft. absent: Distended, Tenderness - Extremities Exam Extremities exam: Positive for: full ROM, normal inspection - Neurological Exam Neurological exam: Alert, CN II-XII Intact Additional comments: AAO x 2 currently. - Psychiatric Exam Psychiatric exam: Agitated - Skin Skin Exam: Intact, Normal Color Results - Vital Signs Recent Vital Signs: Last Vital Signs Temp 98.4 F 12/03/17 06:00 Pulse 112 H 12/03/17 18:00 Resp 20 12/03/17 06:00 BP 149/80 12/03/17 06:00 Pulse Ox 96 12/03/17 06:00 - Labs Result Diagrams: 12/03/17 06:30 12/03/17 06:30 Labs: Laboratory Results - last 24 hr 12/03/17 12/03/17 12/03/17 02:19 02:19 06:30 WBC 14.2 H RBC 5.19 Hgb 14.5 Hct 43.5 MCV 83.8 MCH 27.9 MCHC 33.3 RDW 14.5 Plt Count 258 MPV 9.9 Gran % 73.5 H Lymph % (Auto) 12.0 L [place] % (Auto) 14.1 H Eos % (Auto) 0.3 L Baso % (Auto) 0.1 Gran # 10.41 H Lymph # (Auto) 1.7 [place] # (Auto) 2.0 H Eos # (Auto) 0.0 Baso # (Auto) 0.02 Sodium Potassium Chloride Carbon Dioxide Anion Gap BUN Creatinine Est GFR ( Amer) Est GFR (Non-Af Amer) POC Glucose (mg/dL) Random Glucose Calcium Phosphorus Magnesium Total Bilirubin AST ALT Alkaline Phosphatase NT-Pro-B Natriuret Pep Total Protein Albumin Globulin Albumin/Globulin Ratio Triglycerides Cholesterol LDL Cholesterol Direct HDL Cholesterol Urine Color Yellow Urine Appearance Sl cloudy Urine pH 6.0 Ur Specific [place] 1.020 Urine Protein 30 H Urine Glucose (UA) Negative Urine Ketones 15 H Urine Blood Trace-intact H Urine Nitrate Negative Urine Bilirubin Negative Urine Urobilinogen 0.2 Ur Leukocyte Esterase Negative Urine RBC 0 - 2 Urine WBC Negative Ur Epithelial Cells 4 - 5 Urine Bacteria Few Urine Other Mucus Urine Opiates Screen Negative Urine Methadone Screen Negative Ur Barbiturates Screen Negative Ur Phencyclidine Scrn Negative Ur Amphetamines Screen Negative U Benzodiazepines Scrn Negative U Oth Cocaine Metabols Negative U Cannabinoids Screen Negative 12/03/17 12/03/17 12/03/17 06:30 06:30 07:09 WBC RBC Hgb Hct MCV MCH MCHC RDW Plt Count MPV Gran % Lymph % (Auto) [place] % (Auto) Eos % (Auto) Baso % (Auto) Gran # Lymph # (Auto) [place] # (Auto) Eos # (Auto) Baso # (Auto) Sodium 140 Potassium 3.9 Chloride 104 Carbon Dioxide 26 Anion Gap 13 BUN 14 Creatinine 0.8 Est GFR ( Amer) > 60 Est GFR (Non-Af Amer) > 60 POC Glucose (mg/dL) 103 Random Glucose 119 H Calcium 8.7 Phosphorus 2.9 Magnesium 1.8 Total Bilirubin 0.6 AST 29 ALT 26 Alkaline Phosphatase 51 NT-Pro-B Natriuret Pep 495 H Total Protein 6.6 Albumin 3.6 Globulin 3.0 Albumin/Globulin Ratio 1.2 Triglycerides Cholesterol LDL Cholesterol Direct HDL Cholesterol Urine Color Urine Appearance Urine pH Ur Specific [place] Urine Protein Urine Glucose (UA) Urine Ketones Urine Blood Urine Nitrate Urine Bilirubin Urine Urobilinogen Ur Leukocyte Esterase Urine RBC Urine WBC Ur Epithelial Cells Urine Bacteria Urine Other Urine Opiates Screen Urine Methadone Screen Ur Barbiturates Screen Ur Phencyclidine Scrn Ur Amphetamines Screen U Benzodiazepines Scrn U Oth Cocaine Metabols U Cannabinoids Screen 12/03/17 12/03/17 08:00 14:28 WBC RBC Hgb Hct MCV MCH MCHC RDW Plt Count MPV Gran % Lymph % (Auto) [place] % (Auto) Eos % (Auto) Baso % (Auto) Gran # Lymph # (Auto) [place] # (Auto) Eos # (Auto) Baso # (Auto) Sodium Potassium Chloride Carbon Dioxide Anion Gap BUN Creatinine Est GFR ( Amer) Est GFR (Non-Af Amer) POC Glucose (mg/dL) 107 Random Glucose Calcium Phosphorus Magnesium Total Bilirubin AST ALT Alkaline Phosphatase NT-Pro-B Natriuret Pep Total Protein Albumin Globulin Albumin/Globulin Ratio Triglycerides 71 Cholesterol 118 L LDL Cholesterol Direct 44 HDL Cholesterol 48 Urine Color Urine Appearance Urine pH Ur Specific [place] Urine Protein Urine Glucose (UA) Urine Ketones Urine Blood Urine Nitrate Urine Bilirubin Urine Urobilinogen Ur Leukocyte Esterase Urine RBC Urine WBC Ur Epithelial Cells Urine Bacteria Urine Other Urine Opiates Screen Urine Methadone Screen Ur Barbiturates Screen Ur Phencyclidine Scrn Ur Amphetamines Screen U Benzodiazepines Scrn U Oth Cocaine Metabols U Cannabinoids Screen Assessment & Plan - Assessment and Plan (Free Text) Assessment: 77 yo male with COPD, NIDDM2, alcohol abuse and tobacco abuse who presents with two days of AMS. 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 Chest X-ray negative. Awaiting MRI. Starting on Ceftriaxone and Azithromycin. Procalcitonin negative. Cultures negative. Supportive care. Thank you for allowing me to participate in the care of the patient, we will follow with you.
[2017-12-03] MEDS: Thiamine 100 mg/ml Inj IM SCH (21:10)
[2017-12-03] MEDS ORDERED: levETIRAcetam 500 MG in Sodium Chloride 0.9% 100 ML IV SCH (22:00)
[2017-12-03] MEDS: levETIRAcetam 500mg IVPB 500 MG/100 ML BAG IVPB SCH (22:00)
--- NOTE | 2017-12-04 00:05 | CON ---
DATE: REASON FOR CONSULTATION: Altered mental status with left internal carotid artery occlusion. HISTORY OF PRESENT ILLNESS: The patient is a 77-year-old chronic smoker, borderline diabetic, who was brought here by ambulance by his after having altered mental status for 24 hours, and was felt to have a speech impediment also. 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 Yesterday, he told his that he was sick and he did not go to work. However, he managed to walk from the bedroom to the couch and was lying in the couch all day. He also urinated on the couch. According to the , he appeared to have a speech impediment. He was only able to answer with single word after each questions. He was able to walk independently. Ambulance was called and he was brought to the emergency room. On emergency room, he had a CT scan without contrast, which is within normal limits. CT angiogram showed occluded left carotid artery. PAST MEDICAL HISTORY: Significant for borderline [id number] diabetes, which is supposed to be diet controlled. He also had a history of COPD. 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 He smokes 1 to 2 packs a day for many, many years, and he also drinks 2 beers and 2 shots of bourbon everyday. REVIEW OF SYSTEMS: Other than what is stated in the history of present illness, is otherwise unremarkable. PHYSICAL EXAMINATION: GENERAL: uncooperative man who did not answer any questions. HEENT: Within normal limits. NECK: Supple. CARDIAC: He has regular rhythm. LUNGS: Clear. ABDOMEN: Soft. EXTREMITIES: He has symmetrical motor and sensory function of his extremities. LABORATORY DATA: He has a hemoglobin of 15.7 and WBC of 14.5 on admission. His electrolytes showed a sodium of 140, potassium 3.9, creatinine 0.[address] of the head show no acute changes. CT angiogram showed left internal carotid occlusion. IMPRESSION: The patient is going for an MRI today. He appeared to have suffered a left hemispheric neurological event clinically. This could be a result of his carotid occlusion. PLAN: There is no surgical option for an occluded carotid artery of unknown duration. Suggest physiotherapy and followup with MRI of the brain. Anahy Salmeron MD [facility]
[2017-12-04] MEDS: Albuterol-Ipratrop 3 mg / 0.5 (3 ml) UD IH SCH ×7 (01:00→23:15)
[2017-12-04] MEDS: Insulin Reg-LOW-Coverage SC SCH ×4 (01:30→21:07)
[2017-12-04] MEDS: Multivitamin (MVI) 10 ML, Thiamine 100 MG, Folic Acid 1 MG in Sodium Chloride 0.9% 1,00... IV SCH ×4 (02:45→21:49)
[2017-12-04 07:12] LABS: BASO # 0.02 K/mm3 (0.0-2.0); BASO % 0.2 % (0.0-3.0); EOS % 0.2 % (1.5-5.0); GRAN # 9.91 (1.4-6.5); GRAN % 74.7 % (50.0-68.0); HEMOGLOBIN 15.2 g/dL (14.0-18.0); LYMPH # 2.5 (1.2-3.4); LYMPH % 18.7 % (22.0-35.0); MEAN CELL VOLUME 83.5 fl (80.0-105.0); MEAN CORPUSCULAR HEMOGLOBIN 28.5 pg (25.0-35.0); MEAN CORPUSCULAR HGB CONC 34.1 g/dl (31.0-37.0); MONO # 0.8 (0.1-0.6); MONO % 6.2 % (1.0-6.0); RBC 5.34 10^6/uL (3.5-6.1); RED CELL DISTRIBUTION WIDTH 14.5 % (11.5-14.5); WHITE BLOOD COUNT 13.2 10^3/ul (4.5-11.0)
--- NOTE | 2017-12-04 07:26 | CP.PCM.PN ---
<DanitaRodo - Last Filed: 12/04/17 13:58> Subjective - Date & Time of Evaluation Date of Evaluation: 12/04/17 Time of Evaluation: 07:30 - Subjective Subjective: PGY1 Medicine Note for Dr. Duncan Patient seen and examined at bedside. Overnight, patient was agitated trying to pull out montanez and climbing out of bed. This morning his behavior continued. Patient remained agitated and ripped out his IV. He required ativan. Patient was oriented to person before ativan then became more lethargic. ROS unobtainable due to agitation and lethargy. Objective - Vital Signs/Intake and Output Vital Signs (last 24 hours): Temp Pulse Resp BP Pulse Ox 98.0 F 88 20 130/79 94 L 12/04/17 00:01 12/04/17 02:00 12/04/17 00:01 12/04/17 00:01 12/04/17 00:01 Intake and Output: 12/04/17 12/04/17 06:59 18:59 Intake Total 0 Output Total 1300 Balance -1300 - Medications Medications: Current Medications Albuterol/Ipratropium (Duoneb 3 Mg/0.5 Mg (3 Ml) Ud) 3 ml IH Q2H PRN PRN Reason: Shortness of Breath Albuterol/Ipratropium (Duoneb 3 Mg/0.5 Mg (3 Ml) Ud) 3 ml IH [id number] [facility] Last Admin: 12/04/17 05:00 Dose: Not Given Aspirin (Aspirin Supp) 81 mg RC DAILY [facility] Atorvastatin Calcium (Lipitor) 40 mg PO DIN [facility] Heparin Sodium (Porcine) (Heparin) 5,000 units SC Q12 [facility] PRN Reason: Protocol Last Admin: 12/03/17 21:09 Dose: 5,000 units Ceftriaxone Sodium (Rocephin 1 Gram Ivpb) 1 gm in 100 mls @ 100 mls/hr IVPB DAILY [facility] PRN Reason: Protocol Last Admin: 12/03/17 10:03 Dose: 100 mls/hr Azithromycin (Zithromax 500mg In Ns) 500 mg in 250 mls @ 167 mls/hr IVPB DAILY [facility] PRN Reason: Protocol Last Admin: 12/03/17 14:29 Dose: 167 mls/hr Multivitamins/Vitamin C 10 ml/Thiamine HCl 100 mg/ Folic Acid 1 mg/ Sodium Chloride 1,011.2 mls @ 100 mls/hr IV .Q10H7M [facility] Last Admin: 12/04/17 04:50 Dose: 100 mls/hr Levetiracetam (Keppra 500mg Ivpb) 500 mg in 100 mls @ 400 mls/hr IVPB Q12 [facility] Last Admin: 12/03/17 22:00 Dose: Not Given Insulin Human Regular (Humulin R Low) 0 units SC Q6H [facility] PRN Reason: Protocol Last Admin: 12/04/17 01:30 Dose: Not Given Lorazepam (Ativan) 1 mg IVP Q6H PRN; Protocol PRN Reason: Symptoms of alcohol withdrawl Last Admin: 12/04/17 05:10 Dose: 1 mg Nicotine (Nicoderm Cq) 1 patch TD DAILY [facility] Last Admin: 12/03/17 10:05 Dose: 1 patch Ondansetron HCl (Zofran Inj) 4 mg IVP Q4H PRN PRN Reason: Nausea/Vomiting Pantoprazole Sodium (Protonix Inj) 40 mg IVP DAILY [facility] Last Admin: 12/03/17 10:05 Dose: 40 mg Thiamine HCl (Vitamin B1 Inj) 100 mg IM DAILY [facility] Last Admin: 12/03/17 21:10 Dose: 100 mg Vitamin A (Vitamin A & D Oint Ud Foilpak) 1 ea TOP Q2 PRN PRN Reason: Please use for dry lips - Labs Labs: 12/04/17 07:00 12/03/17 06:30 PT 13.6 SECONDS (9.4-12.5) H 12/02/17 22:45 INR 1.19 (0.93-1.08) H 12/02/17 22:45 APTT 32.9 Seconds (25.1-36.5) 12/02/17 22:45 - Additional Findings Additional findings: - Constitutional Appears: No Acute Distress, Unkempt - Head Exam Head Exam: ATRAUMATIC, NORMOCEPHALIC - Eye Exam Eye Exam: EOMI, Normal appearance. Pupil Exam: NORMAL ACCOMODATION, PERRL. - ENT Exam ENT Exam: Mucous Membranes Moist - Neck Exam Neck exam: Positive for: Full Rom, Normal Inspection. - Respiratory Exam Respiratory Exam: Clear to Auscultation Bilateral, NORMAL BREATHING PATTERN. absent: Accessory Muscle Use, Chest Wall Tenderness, Decreased Breath Sounds, Prolonged Expiratory Phase, Rales, Rhonchi, Wheezes, Respiratory Distress, Stridor - Cardiovascular Exam Cardiovascular Exam: REGULAR RHYTHM, RRR, +S1, +S2. - GI/Abdominal Exam GI & Abdominal Exam: Normal Bowel Sounds, Soft. absent: Bruit, Diminished Bowel Sounds, Distended, Firm, Guarding, Hernia, Hyperactive Bowel Sounds, Hypoactive Bowel Sounds, Mass, Organomegaly, Pulsatile Mass, Rebound, Rigid, Tenderness - Extremities Exam Extremities exam: Positive for: full ROM, normal capillary refill, normal inspection, pedal pulses present. Negative for: calf tenderness, joint swelling , pedal edema, tenderness - Back Exam Back exam: absent: CVA tenderness (L), CVA tenderness (R), muscle spasm, paraspinal tenderness, rash noted, tenderness, vertebral tenderness - Neurological Exam Additional comments: Oriented to person, Agitated - Skin Skin Exam: Dry, Intact, Warm Assessment and Plan - Assessment and Plan (Free Text) Assessment: 77 year old male with a past medical history significant for COPD, NIDDM2, alcohol abuse and tobacco abuse who presents with two days of AMS. Plan: 1. AMS -CT Head without any acute abnormalities or hemorrhage -Chest X-Ray possible LLL PNA - Azithromycin and Rocephin -CTA head/neck shows Left ICA occlusion -EKG showed sinus tachycardia with normal intervals and no changes in ST segments -MRI Brain with/without contrast -NPO with swallow evaluation -Neurochecks Q2 -Montanez catheter in place -Maintain HOB above 30 degrees -Seizure, Aspiration and Fall precautions in place -Neurology consulted, all recommendations appreciated -Leydi 2. History of Alcohol Withdrawal/Abuse -Alcohol <10 -Ativan 1mg IVP Q4 PRN -Banana Bag -Thiamine, Folic acid, MVM -Zofran PRN for N/V -Precautions as noted above -CIWA Q4 -Cessation recommendations provided 3. History of COPD -Duonebs Q4H MATT and Q2H PRN -Maintain O2 saturation above 92% 4. History of NIDDM2 -SSI-Low and Accuchecks Q6 -A1c pending 5. History of Tobacco Abuse -Nicotine TD 21mg daily -Cessation recommendations provided GI Prophylaxis: Protonix DVT Prophylaxis: Heparin Patient seen and case discussed with attending, Dr. Perla Samayoa PGY1 <PerlaTatiannamartin - Last Filed: 12/04/17 15:32> Objective - Vital Signs/Intake and Output Vital Signs (last 24 hours): Temp Pulse Resp BP Pulse Ox 97.8 F 93 H 18 142/90 95 12/04/17 12:00 12/04/17 12:00 12/04/17 12:00 12/04/17 12:00 12/04/17 06:00 Intake and Output: 12/04/17 12/04/17 06:59 18:59 Intake Total 1200 0 Output Total 1300 600 Balance -100 -600 - Medications Medications: Current Medications Albuterol/Ipratropium (Duoneb 3 Mg/0.5 Mg (3 Ml) Ud) 3 ml IH Q2H PRN PRN Reason: Shortness of Breath Albuterol/Ipratropium (Duoneb 3 Mg/0.5 Mg (3 Ml) Ud) 3 ml IH [id number] [facility] Last Admin: 12/04/17 11:06 Dose: 3 ml Aspirin (Aspirin Supp) 81 mg RC DAILY [facility] Last Admin: 12/04/17 10:09 Dose: 81 mg Atorvastatin Calcium (Lipitor) 40 mg PO DIN [facility] Heparin Sodium (Porcine) (Heparin) 5,000 units SC Q12 [facility] PRN Reason: Protocol Last Admin: 12/04/17 10:09 Dose: 5,000 units Ceftriaxone Sodium (Rocephin 1 Gram Ivpb) 1 gm in 100 mls @ 100 mls/hr IVPB DAILY [facility] PRN Reason: Protocol Last Admin: 12/04/17 11:31 Dose: 100 mls/hr Azithromycin (Zithromax 500mg In Ns) 500 mg in 250 mls @ 167 mls/hr IVPB DAILY [facility] PRN Reason: Protocol Last Admin: 12/04/17 14:04 Dose: 167 mls/hr Multivitamins/Vitamin C 10 ml/Thiamine HCl 100 mg/ Folic Acid 1 mg/ Sodium Chloride 1,011.2 mls @ 100 mls/hr IV .Q10H7M [facility] Last Admin: 12/04/17 13:54 Dose: Not Given Levetiracetam (Keppra 500mg Ivpb) 500 mg in 100 mls @ 400 mls/hr IVPB Q12 [facility] Last Admin: 12/04/17 10:08 Dose: 400 mls/hr Insulin Human Regular (Humulin R Low) 0 units SC Q6H [facility] PRN Reason: Protocol Last Admin: 12/04/17 13:57 Dose: Not Given Lorazepam (Ativan) 1 mg IVP ONCE PRN; Protocol PRN Reason: Agitation Nicotine (Nicoderm Cq) 1 patch TD DAILY [facility] Last Admin: 12/04/17 10:08 Dose: 1 patch Ondansetron HCl (Zofran Inj) 4 mg IVP Q4H PRN PRN Reason: Nausea/Vomiting Pantoprazole Sodium (Protonix Inj) 40 mg IVP DAILY [facility] Last Admin: 12/04/17 10:07 Dose: 40 mg Thiamine HCl (Vitamin B1 Inj) 100 mg IV DAILY [facility] Vitamin A (Vitamin A & D Oint Ud Foilpak) 1 ea TOP Q2 PRN PRN Reason: Please use for dry lips - Labs Labs: 12/04/17 07:00 12/04/17 07:00 PT 13.6 SECONDS (9.4-12.5) H 12/02/17 22:45 INR 1.19 (0.93-1.08) H 12/02/17 22:45 APTT 28.5 Seconds (25.1-36.5) 12/04/17 07:00 Attending/Attestation - Attestation I have personally seen and examined this patient.: Yes I have fully participated in the care of the patient.: Yes I have reviewed all pertinent clinical information, including history, physical exam and plan: Yes Notes (Text): 12/04/17 15:29 Medical record note made by the resident after discussion with my direction and input after the patient was personally seen and examined by me. I have reviewed the chart and agree that the record accurately reflects by personal performance of the history, physical exam, data review, and medical decision-making, in the course for the patient. I have also personally directed the plan of care. 77 year old male with a past medical history significant for COPD, NIDDM2, alcohol abuse and tobacco abuse was admitted with change of mental status, etiology is unclear, CT scan of head was negative for acute infarct or bleeding , CTA head/neck shows Left ICA occlusion,Vascular surgery evaluation is appreciated,no surgical option available for this complete occlusion. MRI of brain is pending.Patient is on Keppra as per Neurology, we will follow up MRI of Brain and EEG.Patient is having intermittent agitation today, there is no gross motor deficit. Patient is also on antibiotics for possible Pneumonia, Procalcitonin level is normal, cultures are negative so far.
[2017-12-04 07:37] LABS: ALB/GLOB RATIO 1.2 (1.1-1.8); ALBUMIN 3.7 g/dL (3.0-4.8); ALT/SGPT 30 U/L (7-56); AST/SGOT 32 U/L (17-59); BLOOD UREA NITROGEN 11 mg/dL (7-21); GFR AFRICAN-AMERICAN > 60; GFR NON-AFRICAN AMERICAN > 60
--- NOTE | 2017-12-04 08:28 | CP.PCM.PN ---
Subjective - Date & Time of Evaluation Date of Evaluation: 12/04/17 Time of Evaluation: 09:00 - Subjective Subjective: PGY2 Neuro Progress note for Dr. Spring Patient seen and examined at bedside. As per nursing patient was oriented x 1 this AM and very agitated and tremulous. He was not complaining of any headaches , nausea, vomiting, or auditory/visual hallucinations at the time. Patient had pulled out 5 IV lines overnight and needed Ativan this AM. I saw patient after he had received ativan and he was drowsy and not answering question appropriately or following commands. Complete ROS unobtainable. Objective - Vital Signs/Intake and Output Vital Signs (last 24 hours): Temp Pulse Resp BP Pulse Ox 97.9 F 93 H 80 H 135/76 95 12/04/17 06:00 12/04/17 06:00 12/04/17 06:00 12/04/17 06:00 12/04/17 06:00 Intake and Output: 12/04/17 12/04/17 06:59 18:59 Intake Total 1200 Output Total 1300 Balance -100 - Medications Medications: Current Medications Albuterol/Ipratropium (Duoneb 3 Mg/0.5 Mg (3 Ml) Ud) 3 ml IH Q2H PRN PRN Reason: Shortness of Breath Albuterol/Ipratropium (Duoneb 3 Mg/0.5 Mg (3 Ml) Ud) 3 ml IH [id number] [facility] Last Admin: 12/04/17 05:00 Dose: Not Given Aspirin (Aspirin Supp) 81 mg RC DAILY [facility] Atorvastatin Calcium (Lipitor) 40 mg PO DIN [facility] Heparin Sodium (Porcine) (Heparin) 5,000 units SC Q12 [facility] PRN Reason: Protocol Last Admin: 12/03/17 21:09 Dose: 5,000 units Ceftriaxone Sodium (Rocephin 1 Gram Ivpb) 1 gm in 100 mls @ 100 mls/hr IVPB DAILY [facility] PRN Reason: Protocol Last Admin: 12/03/17 10:03 Dose: 100 mls/hr Azithromycin (Zithromax 500mg In Ns) 500 mg in 250 mls @ 167 mls/hr IVPB DAILY [facility] PRN Reason: Protocol Last Admin: 12/03/17 14:29 Dose: 167 mls/hr Multivitamins/Vitamin C 10 ml/Thiamine HCl 100 mg/ Folic Acid 1 mg/ Sodium Chloride 1,011.2 mls @ 100 mls/hr IV .Q10H7M [facility] Last Admin: 12/04/17 04:50 Dose: 100 mls/hr Levetiracetam (Keppra 500mg Ivpb) 500 mg in 100 mls @ 400 mls/hr IVPB Q12 [facility] Last Admin: 12/03/17 22:00 Dose: Not Given Insulin Human Regular (Humulin R Low) 0 units SC Q6H [facility] PRN Reason: Protocol Last Admin: 12/04/17 08:10 Dose: Not Given Lorazepam (Ativan) 1 mg IVP Q4H PRN; Protocol PRN Reason: Symptoms of alcohol withdrawl Nicotine (Nicoderm Cq) 1 patch TD DAILY [facility] Last Admin: 12/03/17 10:05 Dose: 1 patch Ondansetron HCl (Zofran Inj) 4 mg IVP Q4H PRN PRN Reason: Nausea/Vomiting Pantoprazole Sodium (Protonix Inj) 40 mg IVP DAILY [facility] Last Admin: 12/03/17 10:05 Dose: 40 mg Thiamine HCl (Vitamin B1 Inj) 100 mg IM DAILY [facility] Last Admin: 12/03/17 21:10 Dose: 100 mg Vitamin A (Vitamin A & D Oint Ud Foilpak) 1 ea TOP Q2 PRN PRN Reason: Please use for dry lips - Labs Labs: 12/04/17 07:00 12/04/17 07:00 PT 13.6 SECONDS (9.4-12.5) H 12/02/17 22:45 INR 1.19 (0.93-1.08) H 12/02/17 22:45 APTT 28.5 Seconds (25.1-36.5) 12/04/17 07:00 - Constitutional Appears: Confused - Head Exam Head Exam: ATRAUMATIC, NORMAL INSPECTION, NORMOCEPHALIC - Eye Exam Eye Exam: Normal appearance, PERRL. absent: Conjunctival injection, Scleral icterus - ENT Exam ENT Exam: Mucous Membranes Moist - Respiratory Exam Respiratory Exam: NORMAL BREATHING PATTERN. absent: Accessory Muscle Use, Respiratory Distress - Cardiovascular Exam Cardiovascular Exam: +S1, +S2 - Exam Additional comments: montanez in place - Extremities Exam Extremities Exam: Normal Capillary Refill, Normal Inspection - Neurological Exam Neurological Exam: Altered Additional comments: drowsy moves all extremities spontaneously physical exam limited - Skin Skin Exam: Dry, Intact Assessment and Plan - Assessment and Plan (Free Text) Assessment: 77yo male PMHx COPD, NIDDM2, alcohol and tobacco abuse presented to [facility] with for 2 days of AMS Plan: -AMS likely secondary to seizures given patient's clinical picture -Keppra 500 bid -ASA 81mg rc -Lipitor 40mg qhs -Thiamine 100mg iv -Head CT: chronic changes - generalized cererbal atrophy and periventricular chronic microvascular changes with chronic appearing right frontal lobe subcortical encephalomalacia changes stable since 06/02/2017. No interval hemorrhage or mass effect seen. -CTA head/neck: heavily calcified plaque at the L carotid bifurcation with complete occlusion of the internal carotid; occlusion of the left internal carotid. -f/u MRI -f/u EEG -NPO -seizure and aspiration precautions -fall risk -HoB above 30 degrees -recommend continuing banana bag Discussed with Dr. Saw Nelson PGY2
[2017-12-04] MEDS: Thiamine 100 mg/ml Inj IM SCH (10:08)
[2017-12-04] MEDS: levETIRAcetam 500mg IVPB 500 MG/100 ML BAG IVPB SCH ×2 (10:08→21:25)
[2017-12-04] MEDS: cefTRIAXone 1 gm 1 GM/100 ML BAG IVPB SCH (11:31)
[2017-12-04] MEDS: Azithromycin 500MG/NS 250ml 500 MG/250 ML BAG IVPB SCH (14:04)
--- NOTE | 2017-12-04 19:02 | CP.PCM.PN ---
Subjective - Date & Time of Evaluation Date of Evaluation: 12/04/17 Time of Evaluation: 16:30 - Subjective Subjective: Infectious Disease Follow Up: December 04, 2017 Mr. Helms is a 77 year old male with a past medical history significant for COPD, NIDDM2, alcohol abuse and tobacco abuse who presents with two days of AMS. Patient at bedside to provide HPI information. Patient oriented to person, town and year. Patients reports that patient at baseline communicates verbally, is independent with ADL's and ambulates without assistance. For the past two days, patient has been sitting in his chair staring off into the distance without the television on, which is unusual for him. She reports that brought him in today because she noticed that he urinated on the couch. Patients also endorses that patient has had no complaints immediately prior to or during this episode. While he usually drinks alcohol daily, patient has not had anything to drink for the past three days. She also denies any recent medication changes. Patient uncooperative with questioning. History obtained from the chart. Family not in the room when I examined the patient. He is starting to ambulate. Patient is still often confused. Patient remains on Keppra. Objective - Vital Signs/Intake and Output Vital Signs (last 24 hours): Temp Pulse Resp BP Pulse Ox 97 F L 91 H 18 147/87 98 12/04/17 16:30 12/04/17 16:30 12/04/17 16:30 12/04/17 16:30 12/04/17 16:30 Intake and Output: 12/04/17 12/04/17 06:59 18:59 Intake Total 1200 0 Output Total 1300 600 Balance -100 -600 - Medications Medications: Current Medications Albuterol/Ipratropium (Duoneb 3 Mg/0.5 Mg (3 Ml) Ud) 3 ml IH Q2H PRN PRN Reason: Shortness of Breath Albuterol/Ipratropium (Duoneb 3 Mg/0.5 Mg (3 Ml) Ud) 3 ml IH [id number] [facility] Last Admin: 12/04/17 15:54 Dose: 3 ml Aspirin (Aspirin Supp) 81 mg RC DAILY [facility] Last Admin: 12/04/17 10:09 Dose: 81 mg Atorvastatin Calcium (Lipitor) 40 mg PO DIN [facility] Heparin Sodium (Porcine) (Heparin) 5,000 units SC Q12 [facility] PRN Reason: Protocol Last Admin: 12/04/17 10:09 Dose: 5,000 units Ceftriaxone Sodium (Rocephin 1 Gram Ivpb) 1 gm in 100 mls @ 100 mls/hr IVPB DAILY [facility] PRN Reason: Protocol Last Admin: 12/04/17 11:31 Dose: 100 mls/hr Azithromycin (Zithromax 500mg In Ns) 500 mg in 250 mls @ 167 mls/hr IVPB DAILY [facility] PRN Reason: Protocol Last Admin: 12/04/17 14:04 Dose: 167 mls/hr Multivitamins/Vitamin C 10 ml/Thiamine HCl 100 mg/ Folic Acid 1 mg/ Sodium Chloride 1,011.2 mls @ 100 mls/hr IV .Q10H7M [facility] Last Admin: 12/04/17 13:54 Dose: Not Given Levetiracetam (Keppra 500mg Ivpb) 500 mg in 100 mls @ 400 mls/hr IVPB Q12 [facility] Last Admin: 12/04/17 10:08 Dose: 400 mls/hr Insulin Human Regular (Humulin R Low) 0 units SC Q6H [facility] PRN Reason: Protocol Last Admin: 12/04/17 13:57 Dose: Not Given Lorazepam (Ativan) 1 mg IVP ONCE PRN; Protocol PRN Reason: Agitation Nicotine (Nicoderm Cq) 1 patch TD DAILY [facility] Last Admin: 12/04/17 10:08 Dose: 1 patch Ondansetron HCl (Zofran Inj) 4 mg IVP Q4H PRN PRN Reason: Nausea/Vomiting Pantoprazole Sodium (Protonix Inj) 40 mg IVP DAILY [facility] Last Admin: 12/04/17 10:07 Dose: 40 mg Thiamine HCl (Vitamin B1 Inj) 100 mg IV DAILY [facility] Vitamin A (Vitamin A & D Oint Ud Foilpak) 1 ea TOP Q2 PRN PRN Reason: Please use for dry lips - Labs Labs: 12/04/17 07:00 12/04/17 07:00 PT 13.6 SECONDS (9.4-12.5) H 12/02/17 22:45 INR 1.19 (0.93-1.08) H 12/02/17 22:45 APTT 28.5 Seconds (25.1-36.5) 12/04/17 07:00 - Constitutional Appears: Non-toxic, No Acute Distress, Unkempt, Confused, Chronically Ill - Head Exam Head Exam: ATRAUMATIC, NORMOCEPHALIC - Eye Exam Eye Exam: EOMI, PERRL Pupil Exam: NORMAL ACCOMODATION, PERRL - ENT Exam ENT Exam: Mucous Membranes Moist, Normal External Ear Exam, TM's Normal Bilaterally - Neck Exam Neck Exam: Full ROM, Normal Inspection - Respiratory Exam Respiratory Exam: Clear to Ausculation Bilateral, NORMAL BREATHING PATTERN. absent: Rales, Rhonchi, Wheezes - Cardiovascular Exam Cardiovascular Exam: REGULAR RHYTHM, RRR, +S1, +S2 - GI/Abdominal Exam GI & Abdominal Exam: Soft, Normal Bowel Sounds. absent: Distended, Tenderness - Extremities Exam Extremities Exam: Full ROM, Normal Inspection - Neurological Exam Neurological Exam: Alert, Awake, CN II-XII Intact Additional comments: AAO x 2 now. - Psychiatric Exam Psychiatric exam: Agitated - Skin Skin Exam: Intact, Normal Color Assessment and Plan - Assessment and Plan (Free Text) Assessment: 77 yo male with COPD, NIDDM2, alcohol abuse and tobacco abuse who presents with two days of AMS. 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 Chest X-ray negative. Awaiting MRI. Starting on Ceftriaxone and Azithromycin. Procalcitonin negative. Cultures negative. Supportive care. Patient more awake and alert. Starting to ambulate again. No evidence of pneumonia. Thank you for allowing me to participate in the care of the patient, we will follow with you.
--- NOTE | 2017-12-04 23:38 | CARD ---
APPROVED REPORT EKG Measurement Heart [id number] <Conclusion> Normal sinus rhythm Normal ECG
[2017-12-05] MEDS: Albuterol-Ipratrop 3 mg / 0.5 (3 ml) UD IH SCH ×5 (03:05→20:15)
[2017-12-05] MEDS: Insulin Reg-LOW-Coverage SC SCH ×4 (05:29→22:37)
[2017-12-05 07:14] LABS: BASO # 0.03 K/mm3 (0.0-2.0); BASO % 0.3 % (0.0-3.0); EOS # 0.1 (0.0-0.7); EOS % 0.7 % (1.5-5.0); GRAN # 6.87 (1.4-6.5); GRAN % 70.1 % (50.0-68.0); HEMOGLOBIN 14.4 g/dL (14.0-18.0); LYMPH # 1.4 (1.2-3.4); LYMPH % 14.4 % (22.0-35.0); MEAN CELL VOLUME 83.7 fl (80.0-105.0); MEAN CORPUSCULAR HGB CONC 33.4 g/dl (31.0-37.0); MONO # 1.4 (0.1-0.6); MONO % 14.5 % (1.0-6.0); RBC 5.15 10^6/uL (3.5-6.1); RED CELL DISTRIBUTION WIDTH 14.6 % (11.5-14.5); WHITE BLOOD COUNT 9.8 10^3/ul (4.5-11.0)
[2017-12-05 07:40] LABS: ALB/GLOB RATIO 1.1 (1.1-1.8); ALBUMIN 3.5 g/dL (3.0-4.8); ALT/SGPT 28 U/L (7-56); AST/SGOT 29 U/L (17-59); BLOOD UREA NITROGEN 11 mg/dL (7-21); CALCIUM 8.9 mg/dL (8.4-10.5); GFR AFRICAN-AMERICAN > 60; GFR NON-AFRICAN AMERICAN > 60
[2017-12-05] MEDS: Multivitamin (MVI) 10 ML, Thiamine 100 MG, Folic Acid 1 MG in Sodium Chloride 0.9% 1,00... IV SCH (08:05)
--- NOTE | 2017-12-05 08:41 | CP.PCM.PN ---
<Anahi Nelson - Last Filed: 12/05/17 12:34> Subjective - Date & Time of Evaluation Date of Evaluation: 12/05/17 Time of Evaluation: 08:30 - Subjective Subjective: PGY2 Neuro Progress note for Dr. Spring Patient seen and examined at bedside. He is AO x 1 to self only. Patient not responding appropriately or following commands. MRI was cancelled yesterday as patient was agitated and moving around too much. Complete ROS unobtainable secondary to patient condition. Objective - Vital Signs/Intake and Output Vital Signs (last 24 hours): Temp Pulse Resp BP Pulse Ox 97.4 F L 89 20 164/78 H 95 12/05/17 06:00 12/05/17 06:00 12/05/17 06:00 12/05/17 06:00 12/05/17 06:00 Intake and Output: 12/05/17 12/05/17 06:59 18:59 Intake Total 800 Output Total 1050 Balance -250 - Medications Medications: Current Medications Albuterol/Ipratropium (Duoneb 3 Mg/0.5 Mg (3 Ml) Ud) 3 ml IH Q2H PRN PRN Reason: Shortness of Breath Albuterol/Ipratropium (Duoneb 3 Mg/0.5 Mg (3 Ml) Ud) 3 ml IH [id number] [facility] Last Admin: 12/05/17 07:34 Dose: 3 ml Aspirin (Aspirin Supp) 81 mg RC DAILY [facility] Last Admin: 12/04/17 10:09 Dose: 81 mg Atorvastatin Calcium (Lipitor) 40 mg PO DIN [facility] Last Admin: 12/04/17 18:57 Dose: Not Given Heparin Sodium (Porcine) (Heparin) 5,000 units SC Q12 [facility] PRN Reason: Protocol Last Admin: 12/04/17 21:26 Dose: 5,000 units Ceftriaxone Sodium (Rocephin 1 Gram Ivpb) 1 gm in 100 mls @ 100 mls/hr IVPB DAILY [facility] PRN Reason: Protocol Last Admin: 12/04/17 11:31 Dose: 100 mls/hr Azithromycin (Zithromax 500mg In Ns) 500 mg in 250 mls @ 167 mls/hr IVPB DAILY [facility] PRN Reason: Protocol Last Admin: 12/04/17 14:04 Dose: 167 mls/hr Multivitamins/Vitamin C 10 ml/Thiamine HCl 100 mg/ Folic Acid 1 mg/ Sodium Chloride 1,011.2 mls @ 100 mls/hr IV .Q10H7M [facility] Last Admin: 12/05/17 08:05 Dose: 100 mls/hr Levetiracetam (Keppra 500mg Ivpb) 500 mg in 100 mls @ 400 mls/hr IVPB Q12 [facility] Last Admin: 12/04/17 21:25 Dose: 400 mls/hr Potassium Chloride (Potassium Chloride 20 Meq/100 Ml) 20 meq in 100 mls @ 50 mls/hr IVPB Q2H [facility] Stop: 12/05/17 12:14 Last Admin: 12/05/17 08:32 Dose: 50 mls/hr Insulin Human Regular (Humulin R Low) 0 units SC Q6H [facility] PRN Reason: Protocol Last Admin: 12/05/17 07:46 Dose: Not Given Lorazepam (Ativan) 1 mg IVP Q6H PRN; Protocol PRN Reason: Agitation Nicotine (Nicoderm Cq) 1 patch TD DAILY [facility] Last Admin: 12/04/17 10:08 Dose: 1 patch Ondansetron HCl (Zofran Inj) 4 mg IVP Q4H PRN PRN Reason: Nausea/Vomiting Pantoprazole Sodium (Protonix Inj) 40 mg IVP DAILY [facility] Last Admin: 12/04/17 10:07 Dose: 40 mg Thiamine HCl (Vitamin B1 Inj) 100 mg IV DAILY [facility] Vitamin A (Vitamin A & D Oint Ud Foilpak) 1 ea TOP Q2 PRN PRN Reason: Please use for dry lips - Labs Labs: 12/05/17 06:00 12/05/17 06:00 PT 13.6 SECONDS (9.4-12.5) H 12/02/17 22:45 INR 1.19 (0.93-1.08) H 12/02/17 22:45 APTT 28.5 Seconds (25.1-36.5) 12/04/17 07:00 - Constitutional Appears: Confused - Head Exam Head Exam: ATRAUMATIC, NORMAL INSPECTION, NORMOCEPHALIC - Eye Exam Eye Exam: Normal appearance. absent: Conjunctival injection, Scleral icterus - ENT Exam ENT Exam: Mucous Membranes Dry - Respiratory Exam Respiratory Exam: NORMAL BREATHING PATTERN. absent: Accessory Muscle Use, Respiratory Distress - Cardiovascular Exam Cardiovascular Exam: +S1, +S2 - Extremities Exam Extremities Exam: Normal Capillary Refill, Normal Inspection. absent: Pedal Edema, Tenderness - Neurological Exam Neurological Exam: Alert, Altered, Awake. absent: Oriented x3 Additional comments: moves all extremities spontaneously but does not follow commands - Psychiatric Exam Additional comments: confused Assessment and Plan - Assessment and Plan (Free Text) Assessment: 77yo male PMHx COPD, NIDDM2, alcohol and tobacco abuse presented to [facility] with for 2 days of AMS Plan: -AMS likely secondary to seizures given patient's clinical picture -Keppra 500 bid -ASA 81mg qd -Lipitor 40mg qhs -Thiamine 100mg iv -Head CT: chronic changes - generalized cererbal atrophy and periventricular chronic microvascular changes with chronic appearing right frontal lobe subcortical encephalomalacia changes stable since 06/02/2017. No interval hemorrhage or mass effect seen. -CTA head/neck: heavily calcified plaque at the L carotid bifurcation with complete occlusion of the internal carotid; occlusion of the left internal carotid. -f/u MRI -f/u EEG -NPO -seizure and aspiration precautions -fall risk -HoB above 30 degrees -recommend continuing banana bag Discussed with Dr. Saw Nelson PGY2 <Rom Spring - Last Filed: 12/05/17 17:49> Objective - Vital Signs/Intake and Output Vital Signs (last 24 hours): Temp Pulse Resp BP Pulse Ox 97.8 F 99 H 18 149/48 L 99 12/05/17 17:27 12/05/17 17:27 12/05/17 17:27 12/05/17 17:27 12/05/17 09:00 Intake and Output: 12/05/17 12/05/17 06:59 18:59 Intake Total 800 240 Output Total 1050 1450 Balance -250 -1210 - Medications Medications: Current Medications Albuterol/Ipratropium (Duoneb 3 Mg/0.5 Mg (3 Ml) Ud) 3 ml IH Q2H PRN PRN Reason: Shortness of Breath Albuterol/Ipratropium (Duoneb 3 Mg/0.5 Mg (3 Ml) Ud) 3 ml IH [id number] [facility] Last Admin: 12/05/17 15:45 Dose: 3 ml Aspirin (Aspirin Chewable) 81 mg PO DAILY [facility] Atorvastatin Calcium (Lipitor) 40 mg PO DIN [facility] Last Admin: 12/05/17 17:37 Dose: 40 mg Folic Acid (Folic Acid) 1 mg PO DAILY [facility] Ceftriaxone Sodium (Rocephin 1 Gram Ivpb) 1 gm in 100 mls @ 100 mls/hr IVPB DAILY [facility] PRN Reason: Protocol Last Admin: 12/05/17 13:11 Dose: 100 mls/hr Azithromycin (Zithromax 500mg In Ns) 500 mg in 250 mls @ 167 mls/hr IVPB DAILY [facility] PRN Reason: Protocol Last Admin: 12/05/17 13:40 Dose: 167 mls/hr Levetiracetam 750 mg/ Sodium (Chloride) 107.5 mls @ 460 mls/hr IV Q12 [facility] Insulin Human Regular (Humulin R Low) 0 units SC ACHS [facility] PRN Reason: Protocol Last Admin: 12/05/17 17:09 Dose: Not Given Lorazepam (Ativan) 1 mg IVP Q6H PRN; Protocol PRN Reason: Agitation Last Admin: 12/05/17 14:32 Dose: 1 mg Multivitamins (Thera Tab) 1 tab PO DAILY [facility] Nicotine (Nicoderm Cq) 1 patch TD DAILY [facility] Last Admin: 12/05/17 10:29 Dose: 1 patch Ondansetron HCl (Zofran Inj) 4 mg IVP Q4H PRN PRN Reason: Nausea/Vomiting Pantoprazole Sodium (Protonix Ec Tab) 40 mg PO ACB [facility] Thiamine HCl (Vitamin B1 Inj) 100 mg IV DAILY [facility] Last Admin: 12/05/17 10:06 Dose: Not Given Vitamin A (Vitamin A & D Oint Ud Foilpak) 1 ea TOP Q2 PRN PRN Reason: Please use for dry lips - Labs Labs: 12/05/17 06:00 12/05/17 06:00 PT 13.6 SECONDS (9.4-12.5) H 12/02/17 22:45 INR 1.19 (0.93-1.08) H 12/02/17 22:45 APTT 28.5 Seconds (25.1-36.5) 12/04/17 07:00 Assessment and Plan - Assessment and Plan (Free Text) Plan: MRI imaging reviewed and shows multiple areas of embolic stroke. Will proceed with the stroke work-up and continue aspirin daily. I discussed repeating the CT scan in the morning since there was an area in the occipital lobe that could be concerning for slight hemorrhage.
[2017-12-05] MEDS: Thiamine 100 mg/ml Inj IV SCH (10:06)
[2017-12-05] MEDS: levETIRAcetam 500mg IVPB 500 MG/100 ML BAG IVPB SCH (10:21)
--- NOTE | 2017-12-05 11:49 | CP.PCM.PN ---
<Martin Dixon - Last Filed: 12/05/17 13:50> Subjective - Date & Time of Evaluation Date of Evaluation: 12/05/17 Time of Evaluation: 11:47 - Subjective Subjective: Patient seen and examined at bedside. More awake now. Still confused. No agitation. Oriented to person but not place or time. Objective - Vital Signs/Intake and Output Vital Signs (last 24 hours): Temp Pulse Resp BP Pulse Ox 98 F 101 H 20 141/93 H 95 12/05/17 11:40 12/05/17 11:40 12/05/17 11:40 12/05/17 11:40 12/05/17 06:00 Intake and Output: 12/05/17 12/05/17 06:59 18:59 Intake Total 800 Output Total 1050 Balance -250 - Medications Medications: Current Medications Albuterol/Ipratropium (Duoneb 3 Mg/0.5 Mg (3 Ml) Ud) 3 ml IH Q2H PRN PRN Reason: Shortness of Breath Albuterol/Ipratropium (Duoneb 3 Mg/0.5 Mg (3 Ml) Ud) [id number] [facility] Last Admin: 12/05/17 11:03 Dose: 3 ml Atorvastatin Calcium (Lipitor) [address] [facility] Last Admin: 12/04/17 18:57 Dose: Not Given Heparin Sodium (Porcine) (Heparin) 5,000 units SC Q12 [facility] PRN Reason: Protocol Last Admin: 12/05/17 10:28 Dose: 5,000 units Ceftriaxone Sodium (Rocephin 1 Gram Ivpb) 1 gm in 100 mls @ 100 mls/hr IVPB DAILY [facility] PRN Reason: Protocol Last Admin: 12/04/17 11:31 Dose: 100 mls/hr Azithromycin (Zithromax 500mg In Ns) 500 mg in 250 mls @ 167 mls/hr IVPB DAILY [facility] PRN Reason: Protocol Last Admin: 12/04/17 14:04 Dose: 167 mls/hr Multivitamins/Vitamin C 10 ml/Thiamine HCl 100 mg/ Folic Acid 1 mg/ Sodium Chloride 1,011.2 mls @ 100 mls/hr IV .Q10H7M [facility] Last Admin: 12/05/17 08:05 Dose: 100 mls/hr Levetiracetam (Keppra 500mg Ivpb) 500 mg in 100 mls @ 400 mls/hr IVPB Q12 [facility] Last Admin: 12/05/17 10:21 Dose: 400 mls/hr Potassium Chloride (Potassium Chloride 20 Meq/100 Ml) 20 meq in 100 mls @ 50 mls/hr IVPB Q2H [facility] Stop: 12/05/17 12:14 Last Admin: 12/05/17 10:43 Dose: 50 mls/hr Insulin Human Regular (Humulin R Low) 0 units SC Q6H [facility] PRN Reason: Protocol Last Admin: 12/05/17 07:46 Dose: Not Given Lorazepam (Ativan) 1 mg IVP Q6H PRN; Protocol PRN Reason: Agitation Nicotine (Nicoderm Cq) [address] [facility] Last Admin: 12/05/17 10:29 Dose: 1 patch Ondansetron HCl (Zofran Inj) 4 mg IVP Q4H PRN PRN Reason: Nausea/Vomiting Pantoprazole Sodium (Protonix Inj) [address] [facility] Last Admin: 12/05/17 10:27 Dose: 40 mg Thiamine HCl (Vitamin B1 Inj) [address] [facility] Last Admin: 12/05/17 10:06 Dose: Not Given Vitamin A (Vitamin A & D Oint Ud Foilpak) 1 ea TOP Q2 PRN PRN Reason: Please use for dry lips - Labs Labs: 12/05/17 06:00 12/05/17 06:00 PT 13.6 SECONDS (9.4-12.5) H 12/02/17 22:45 INR 1.19 (0.93-1.08) H 12/02/17 22:45 APTT 28.5 Seconds (25.1-36.5) 12/04/17 07:00 - Constitutional Appears: Well - Head Exam Head Exam: ATRAUMATIC, NORMAL INSPECTION, NORMOCEPHALIC - Eye Exam Eye Exam: EOMI, Normal appearance, PERRL Pupil Exam: NORMAL ACCOMODATION, PERRL - ENT Exam ENT Exam: Mucous Membranes Moist, Normal Exam - Neck Exam Neck Exam: Full ROM, Normal Inspection. absent: Lymphadenopathy - Respiratory Exam Respiratory Exam: Clear to Ausculation Bilateral, NORMAL BREATHING PATTERN - Cardiovascular Exam Cardiovascular Exam: REGULAR RHYTHM, +S1, +S2. absent: Murmur - GI/Abdominal Exam GI & Abdominal Exam: Soft, Normal Bowel Sounds. absent: Tenderness - Extremities Exam Extremities Exam: Full ROM, Normal Capillary Refill, Normal Inspection. absent : Joint Swelling, Pedal Edema - Back Exam Back Exam: NORMAL INSPECTION - Neurological Exam Neurological Exam: Alert, Altered, Awake, CN II-XII Intact. absent: Oriented x3 - Psychiatric Exam Psychiatric exam: Normal Affect, Normal Mood - Skin Skin Exam: Dry, Intact, Normal Color, Warm Assessment and Plan (1) Altered mental status Assessment & Plan: Continues to be more awake daily but still confused to place and time. CT head negative - Will try for MRI today. Have tried twice today with sedation but patient was unable to tolerate. CTA head showed L. ICA occlusion 100%. There is no surgical option for occluded carotid artery of unknown duration. Unlikely contributing to alteration but will see after MRI Patient on Keppra per neuro as they suspect AMS is secondary to seizure but no witnessed seizure. EEG Pending Status: Acute (2) Alcohol withdrawal Assessment & Plan: Ativan 1mg Q6 PRN Banana bag, thiamine, folic acid, MTV CIWA Status: Acute <Rachna Duncan - Last Filed: 12/05/17 16:10> Objective - Vital Signs/Intake and Output Vital Signs (last 24 hours): Temp Pulse Resp BP Pulse Ox 98 F 97 H 20 141/93 H 95 12/05/17 11:40 12/05/17 14:00 12/05/17 11:40 12/05/17 11:40 12/05/17 06:00 Intake and Output: 12/05/17 12/05/17 06:59 18:59 Intake Total 800 240 Output Total 1050 1450 Balance -250 -1210 - Medications Medications: Current Medications Albuterol/Ipratropium (Duoneb 3 Mg/0.5 Mg (3 Ml) Ud) 3 ml IH Q2H PRN PRN Reason: Shortness of Breath Albuterol/Ipratropium (Duoneb 3 Mg/0.5 Mg (3 Ml) Ud) [id number] [facility] Last Admin: 12/05/17 15:45 Dose: 3 ml Aspirin (Aspirin Chewable) 81 mg PO DAILY [facility] Atorvastatin Calcium (Lipitor) [address] [facility] Last Admin: 12/04/17 18:57 Dose: Not Given Folic Acid (Folic Acid) [address] [facility] Heparin Sodium (Porcine) (Heparin) 5,000 units SC Q12 [facility] PRN Reason: Protocol Last Admin: 12/05/17 10:28 Dose: 5,000 units Ceftriaxone Sodium (Rocephin 1 Gram Ivpb) 1 gm in 100 mls @ 100 mls/hr IVPB DAILY [facility] PRN Reason: Protocol Last Admin: 12/05/17 13:11 Dose: 100 mls/hr Azithromycin (Zithromax 500mg In Ns) 500 mg in 250 mls @ 167 mls/hr IVPB DAILY [facility] PRN Reason: Protocol Last Admin: 12/05/17 13:40 Dose: 167 mls/hr Levetiracetam 750 mg/ Sodium (Chloride) 107.5 mls @ 460 mls/hr IV Q12 [facility] Insulin Human Regular (Humulin R Low) 0 units SC ACHS [facility] PRN Reason: Protocol Lorazepam (Ativan) 1 mg IVP Q6H PRN; Protocol PRN Reason: Agitation Last Admin: 12/05/17 14:32 Dose: 1 mg Multivitamins (Thera Tab) [address] [facility] Nicotine (Nicoderm Cq) [address] [facility] Last Admin: 12/05/17 10:29 Dose: 1 patch Ondansetron HCl (Zofran Inj) 4 mg IVP Q4H PRN PRN Reason: Nausea/Vomiting Pantoprazole Sodium (Protonix Ec Tab) [address] [facility] Thiamine HCl (Vitamin B1 Inj) [address] [facility] Last Admin: 12/05/17 10:06 Dose: Not Given Vitamin A (Vitamin A & D Oint Ud Foilpak) 1 ea TOP Q2 PRN PRN Reason: Please use for dry lips - Labs Labs: 12/05/17 06:00 12/05/17 06:00 PT 13.6 SECONDS (9.4-12.5) H 12/02/17 22:45 INR 1.19 (0.93-1.08) H 12/02/17 22:45 APTT 28.5 Seconds (25.1-36.5) 12/04/17 07:00 Attending/Attestation - Attestation I have personally seen and examined this patient.: Yes I have fully participated in the care of the patient.: Yes I have reviewed all pertinent clinical information, including history, physical exam and plan: Yes Notes (Text): 12/05/17 16:10 Medical record note made by the resident after discussion with my direction and input after the patient was personally seen and examined by me. I have reviewed the chart and agree that the record accurately reflects by personal performance of the history, physical exam, data review, and medical decision-making, in the course for the patient. I have also personally directed the plan of care. 77 year old male with a past medical history significant for COPD, NIDDM2, alcohol abuse and tobacco abuse was admitted with change of mental status, etiology is unclear, CT scan of head was negative for acute infarct or bleeding , CTA head/neck shows Left ICA occlusion,Vascular surgery evaluation is appreciated,no surgical option available for this complete occlusion. MRI of brain is pending.Patient is on Keppra as per Neurology,.Patient is more awake now having intermittent agitation today, there is no gross motor deficit. Patient is also on antibiotics for possible Pneumonia, Procalcitonin level is normal, cultures are negative so far.
[2017-12-05] MEDS: cefTRIAXone 1 gm 1 GM/100 ML BAG IVPB SCH (13:11)
[2017-12-05] MEDS: Azithromycin 500MG/NS 250ml 500 MG/250 ML BAG IVPB SCH (13:40)
[2017-12-05] MEDS ORDERED: Gadodiamide 287 MG/ML VIAL (15ML) IV ONE (15:11)
--- NOTE | 2017-12-05 17:34 | CP.PCM.PN ---
Subjective - Date & Time of Evaluation Date of Evaluation: 12/05/17 Time of Evaluation: 16:00 - Subjective Subjective: Infectious Disease Follow Up: December 05, 2017 Mr. Helms is a 77 year old male with a past medical history significant for COPD, NIDDM2, alcohol abuse and tobacco abuse who presents with two days of AMS. Patient at bedside to provide HPI information. Patient oriented to person, town and year. Patients reports that patient at baseline communicates verbally, is independent with ADL's and ambulates without assistance. For the past two days, patient has been sitting in his chair staring off into the distance without the television on, which is unusual for him. She reports that brought him in today because she noticed that he urinated on the couch. Patients also endorses that patient has had no complaints immediately prior to or during this episode. While he usually drinks alcohol daily, patient has not had anything to drink for the past three days. She also denies any recent medication changes. Patient uncooperative with questioning. History obtained from the chart. Family not in the room when I examined the patient. He is starting to ambulate. Patient is still often confused. Patient remains on Keppra. Patient is awake and alert but orientated only to self. He has been more ambulatory. Objective - Vital Signs/Intake and Output Vital Signs (last 24 hours): Temp Pulse Resp BP Pulse Ox 98 F 97 H 20 141/93 H 99 12/05/17 11:40 12/05/17 14:00 12/05/17 11:40 12/05/17 11:40 12/05/17 09:00 Intake and Output: 12/05/17 12/05/17 06:59 18:59 Intake Total 800 240 Output Total 1050 1450 Balance -250 -1210 - Medications Medications: Current Medications Albuterol/Ipratropium (Duoneb 3 Mg/0.5 Mg (3 Ml) Ud) 3 ml IH Q2H PRN PRN Reason: Shortness of Breath Albuterol/Ipratropium (Duoneb 3 Mg/0.5 Mg (3 Ml) Ud) 3 ml IH [id number] [facility] Last Admin: 12/05/17 15:45 Dose: 3 ml Aspirin (Aspirin Chewable) 81 mg PO DAILY [facility] Atorvastatin Calcium (Lipitor) 40 mg PO DIN [facility] Last Admin: 12/04/17 18:57 Dose: Not Given Folic Acid (Folic Acid) 1 mg PO DAILY [facility] Heparin Sodium (Porcine) (Heparin) 5,000 units SC Q12 [facility] PRN Reason: Protocol Last Admin: 12/05/17 10:28 Dose: 5,000 units Ceftriaxone Sodium (Rocephin 1 Gram Ivpb) 1 gm in 100 mls @ 100 mls/hr IVPB DAILY [facility] PRN Reason: Protocol Last Admin: 12/05/17 13:11 Dose: 100 mls/hr Azithromycin (Zithromax 500mg In Ns) 500 mg in 250 mls @ 167 mls/hr IVPB DAILY [facility] PRN Reason: Protocol Last Admin: 12/05/17 13:40 Dose: 167 mls/hr Levetiracetam 750 mg/ Sodium (Chloride) 107.5 mls @ 460 mls/hr IV Q12 [facility] Insulin Human Regular (Humulin R Low) 0 units SC ACHS [facility] PRN Reason: Protocol Last Admin: 12/05/17 17:09 Dose: Not Given Lorazepam (Ativan) 1 mg IVP Q6H PRN; Protocol PRN Reason: Agitation Last Admin: 12/05/17 14:32 Dose: 1 mg Multivitamins (Thera Tab) 1 tab PO DAILY [facility] Nicotine (Nicoderm Cq) 1 patch TD DAILY [facility] Last Admin: 12/05/17 10:29 Dose: 1 patch Ondansetron HCl (Zofran Inj) 4 mg IVP Q4H PRN PRN Reason: Nausea/Vomiting Pantoprazole Sodium (Protonix Ec Tab) 40 mg PO ACB [facility] Thiamine HCl (Vitamin B1 Inj) 100 mg IV DAILY [facility] Last Admin: 12/05/17 10:06 Dose: Not Given Vitamin A (Vitamin A & D Oint Ud Foilpak) 1 ea TOP Q2 PRN PRN Reason: Please use for dry lips - Labs Labs: 12/05/17 06:00 12/05/17 06:00 PT 13.6 SECONDS (9.4-12.5) H 12/02/17 22:45 INR 1.19 (0.93-1.08) H 12/02/17 22:45 APTT 28.5 Seconds (25.1-36.5) 12/04/17 07:00 - Constitutional Appears: Non-toxic, No Acute Distress, Chronically Ill - Head Exam Head Exam: ATRAUMATIC, NORMOCEPHALIC - Eye Exam Eye Exam: EOMI, PERRL Pupil Exam: NORMAL ACCOMODATION, PERRL - ENT Exam ENT Exam: Mucous Membranes Moist, Normal External Ear Exam, TM's Normal Bilaterally - Neck Exam Neck Exam: Full ROM, Normal Inspection - Respiratory Exam Respiratory Exam: Clear to Ausculation Bilateral, NORMAL BREATHING PATTERN. absent: Rales, Rhonchi, Wheezes - Cardiovascular Exam Cardiovascular Exam: REGULAR RHYTHM, RRR, +S1, +S2 - GI/Abdominal Exam GI & Abdominal Exam: Soft, Normal Bowel Sounds. absent: Distended, Tenderness - Extremities Exam Extremities Exam: Full ROM, Normal Inspection - Neurological Exam Neurological Exam: Alert, Awake, CN II-XII Intact Additional comments: AAO x 1-2 - Psychiatric Exam Psychiatric exam: Agitated - Skin Skin Exam: Intact, Normal Color Assessment and Plan - Assessment and Plan (Free Text) Assessment: 77 yo male with COPD, NIDDM2, alcohol abuse and tobacco abuse who presents with two days of AMS. 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 Chest X-ray negative. Awaiting MRI pending reading. Starting on Ceftriaxone and Azithromycin. Procalcitonin negative. Cultures negative. Supportive care. Patient more awake and alert. Starting to ambulate again. No evidence of pneumonia. Thank you for allowing me to participate in the care of the patient, we will follow with you.
--- NOTE | 2017-12-05 17:37 | MRI ---
PROCEDURE: MRI BRAIN WITH AND WITHOUT CONTRAST HISTORY: AMS COMPARISON: None. TECHNIQUE: Multiplanar, multisequence MR images of the brain were obtained with and without intravenous contrast enhancement. FINDINGS: Motion artifact degraded examination. HEMORRHAGE: Trace hemosiderin is seen in the left occipital lobe within the posterior margins of infarcted territory. DWI: Restricted diffusion is identified in subsegments of the left occipital lobe as well as heterogeneous in the bilateral frontal, right parietal and temporal, and bilateral occipital lobes compatible with lobar infarctions. The right frontal lobe is minimally affected with only a few punctate areas of restricted diffusion present. These are acute or subacute but given presentation, there most likely is mostly subacute. BRAIN PARENCHYMA: Limited local mass effect is appreciated associated with bilateral occipital and right parietal infarcted territory is with diffuse cerebral atrophy chronic microangiopathy identified once again. Dephasing signal at the left occipital lobe corresponds to trace hemosiderin suggesting local hemorrhage or potentially laminar necrosis. No large intracranial hemorrhage is grossly evident at this time. Chronic infarct in the right frontal lobe is again seen at the vertex. Absence of flow void at the left cavernous internal carotid arteries appreciated compatible the patient's known history of occluded left ICA. Flow voids (indicating active blood flow) are however identified at the visualized M1 and A1 as well as P1 cerebral artery segments and the basilar artery. ENHANCEMENT: Motion artifacts particularly limits post gadolinium enhanced imaging however fast T1 imaging mitigate some of this artifact with no suspicious enhancement pattern appreciated grossly. VENTRICLES: Unremarkable. No hydrocephalus. CRANIUM: Unremarkable. ORBITS: Grossly unremarkable. PARANASAL SINUSES/MASTOIDS: Left mastoid effusions identified. VASCULAR SYSTEM: Skull base flow voids intact. OTHER FINDINGS: None . IMPRESSION: Multifocal cerebral infarction is appreciated affecting sub distributions of bilateral middle cerebral arteries, left anterior cerebral artery and bilateral posterior arteries suspicious for embolic type infarction above and beyond the patient's known left ICA occlusion. Consider possible cardiac source. Trace hemosiderin at the left occipital infarcted territory suggests trace hemorrhage or possible laminar necrosis. Clinically correlate further. Occluded left ICA reiterated at the cavernous and intra canalicular segment of the skullbase. No suspicious contrast enhancement pattern. Age-related neuro degenerative changes comprised of atrophy and microangiopathy are also noted diffusely. Next item chronic infero right frontal lobe reiterated. Findings discussed with Dr. Dixon, with written down and read back verification, 12/05/2017 5:10 p.m..
--- NOTE | 2017-12-05 18:36 | CT ---
PROCEDURE: CT HEAD WITHOUT CONTRAST. HISTORY: ams COMPARISON: None available. TECHNIQUE: Axial computed tomography images were obtained through the head/brain without intravenous contrast. Radiation dose: Total exam DLP = 1156.07 mGy-cm. This CT exam was performed using one or more of the following dose reduction techniques: Automated exposure control, adjustment of the mA and/or kV according to patient size, and/or use of iterative reconstruction technique. FINDINGS: HEMORRHAGE: No acute intracranial hemorrhage is appreciable. BRAIN: Multifocal acute and subacute infarcts are seen scattered at the bilateral occipital and right temporal frontal distributions as well as left parietal lobe with a chronic infarct of the right frontal vertex reiterated. Right frontal infarct is so small that it is not seen in the CT exam currently though identified in diffusion-weighted MRI sequence from 12/05/2017. Diffuse cerebral atrophy chronic microangiopathy are identified. Local mass effect effaces sulci somewhat at the bilateral occipital and right temporal parietal distributions and no additional mass effect is appreciated. No suspicious extra-axial fluid collection identified in the interval. Cerebellum and brainstem appear unremarkable as imaged once again. VENTRICLES: Unremarkable. No hydrocephalus. CALVARIUM: Unremarkable. PARANASAL SINUSES: Unremarkable as visualized. No significant inflammatory changes. MASTOID AIR CELLS: Unremarkable as visualized. No inflammatory changes. OTHER FINDINGS: None. IMPRESSION: Stable multifocal infarct pattern as described above involving the bilateral cerebral hemispheres and apparently sparing the brainstem and posterior fossa. No overt ICH appreciable. Continued clinical and imaging follow-up are advised.
[2017-12-06] MEDS: Albuterol-Ipratrop 3 mg / 0.5 (3 ml) UD IH SCH ×7 (00:10→23:13)
[2017-12-06] MEDS: Insulin Reg-LOW-Coverage SC SCH ×4 (08:32→22:19)
[2017-12-06] MEDS: Thiamine 100 mg/ml Inj IV SCH (09:38)
[2017-12-06] MEDS: Azithromycin 500MG/NS 250ml 500 MG/250 ML BAG IVPB SCH (09:38)
[2017-12-06] MEDS: Multivitamin Therapeutic Tab PO SCH (09:40)
[2017-12-06] MEDS: Pantoprazole 40 mg EC Tab PO SCH (09:42)
--- NOTE | 2017-12-06 10:56 | CP.PCM.PN ---
<Manuel Buck - Last Filed: 12/06/17 10:56> Subjective - Date & Time of Evaluation Date of Evaluation: 12/06/17 Time of Evaluation: 06:00 - Subjective Subjective: Patient seen and evaluated bedside. No acute issues overnight. Patient more alert than yesterday and answering most questions appropriately. Patient denies chest pain, SOB, abdominal pain or any other complaints at this time. Objective - Vital Signs/Intake and Output Vital Signs (last 24 hours): Temp Pulse Resp BP Pulse Ox 98.6 F 74 19 151/94 H 95 12/06/17 06:00 12/06/17 06:00 12/06/17 06:00 12/06/17 06:00 12/06/17 06:00 Intake and Output: 12/06/17 12/06/17 06:59 18:59 Intake Total 0 Output Total 1450 Balance -1450 - Medications Medications: Current Medications Albuterol/Ipratropium (Duoneb 3 Mg/0.5 Mg (3 Ml) Ud) 3 ml IH Q2H PRN PRN Reason: Shortness of Breath Albuterol/Ipratropium (Duoneb 3 Mg/0.5 Mg (3 Ml) Ud) 3 ml IH [id number] [facility] Last Admin: 12/06/17 08:42 Dose: 3 ml Aspirin (Aspirin Chewable) 81 mg PO DAILY [facility] Last Admin: 12/06/17 09:40 Dose: 81 mg Atorvastatin Calcium (Lipitor) 40 mg PO DIN [facility] Last Admin: 12/05/17 17:37 Dose: 40 mg Folic Acid (Folic Acid) 1 mg PO DAILY [facility] Last Admin: 12/06/17 09:40 Dose: 1 mg Levetiracetam 750 mg/ Sodium (Chloride) 107.5 mls @ 460 mls/hr IV Q12 [facility] Last Admin: 12/06/17 10:43 Dose: 460 mls/hr Insulin Human Regular (Humulin R Low) 0 units SC ACHS [facility] PRN Reason: Protocol Last Admin: 12/06/17 08:32 Dose: Not Given Lorazepam (Ativan) 1 mg IVP Q6H PRN; Protocol PRN Reason: Agitation Last Admin: 12/05/17 14:32 Dose: 1 mg Multivitamins (Thera Tab) 1 tab PO DAILY [facility] Last Admin: 12/06/17 09:40 Dose: 1 tab Nicotine (Nicoderm Cq) 1 patch TD DAILY [facility] Last Admin: 12/06/17 09:37 Dose: 1 patch Ondansetron HCl (Zofran Inj) 4 mg IVP Q4H PRN PRN Reason: Nausea/Vomiting Pantoprazole Sodium (Protonix Ec Tab) 40 mg PO ACB [facility] Last Admin: 12/06/17 09:42 Dose: 40 mg Thiamine HCl (Vitamin B1 Inj) 100 mg IV DAILY [facility] Last Admin: 12/06/17 09:38 Dose: 100 mg Vitamin A (Vitamin A & D Oint Ud Foilpak) 1 ea TOP Q2 PRN PRN Reason: Please use for dry lips - Labs Labs: 12/05/17 06:00 12/05/17 06:00 PT 13.6 SECONDS (9.4-12.5) H 12/02/17 22:45 INR 1.19 (0.93-1.08) H 12/02/17 22:45 APTT 28.5 Seconds (25.1-36.5) 12/04/17 07:00 - Constitutional Appears: Non-toxic, No Acute Distress - Head Exam Head Exam: ATRAUMATIC, NORMAL INSPECTION, NORMOCEPHALIC - Eye Exam Eye Exam: Normal appearance - ENT Exam ENT Exam: Mucous Membranes Moist - Respiratory Exam Respiratory Exam: Clear to Ausculation Bilateral, NORMAL BREATHING PATTERN - Cardiovascular Exam Cardiovascular Exam: REGULAR RHYTHM - GI/Abdominal Exam GI & Abdominal Exam: Soft. absent: Tenderness - Extremities Exam Extremities Exam: absent: Pedal Edema, Tenderness - Neurological Exam Neurological Exam: Alert, Awake, Oriented x3 Assessment and Plan - Assessment and Plan (Free Text) Plan: (1) Altered mental status Assessment & Plan: -AAOx3 -CT head negative, second unchanged -MRI showed multifocal thromboembolic infarct from R. parietal, b/l occipital and b/l frontal and trace hemmorage in the occiput. Dr. Spring was made aware and said no further intervention at this time. Continue aspirin. Hold anticoagulation. Continue scd. Repeat Head ct at this time does not show any acute hemorrhage. Will repeat CT today -CTA head showed L. ICA occlusion 100%. There is no surgical option for occluded carotid artery of unknown duration. Unlikely contributing to alteration but will see after MRI -Patient on Keppra per neuro as they suspect AMS is secondary to seizure but no witnessed seizure. EEG Pending Status: Acute (2) Alcohol withdrawal Assessment & Plan: -Ativan 1mg Q6 PRN -Banana bag, thiamine, folic acid, MTV -JEREL <Darlin Dillard - Last Filed: 12/06/17 11:25> Objective - Vital Signs/Intake and Output Vital Signs (last 24 hours): Temp Pulse Resp BP Pulse Ox 98.6 F 74 19 151/94 H 95 12/06/17 06:00 12/06/17 06:00 12/06/17 06:00 12/06/17 06:00 12/06/17 06:00 Intake and Output: 12/06/17 12/06/17 06:59 18:59 Intake Total 0 Output Total 1450 Balance -1450 - Medications Medications: Current Medications Albuterol/Ipratropium (Duoneb 3 Mg/0.5 Mg (3 Ml) Ud) 3 ml IH Q2H PRN PRN Reason: Shortness of Breath Albuterol/Ipratropium (Duoneb 3 Mg/0.5 Mg (3 Ml) Ud) 3 ml IH [id number] [facility] Last Admin: 12/06/17 08:42 Dose: 3 ml Aspirin (Aspirin Chewable) 81 mg PO DAILY [facility] Last Admin: 12/06/17 09:40 Dose: 81 mg Atorvastatin Calcium (Lipitor) 40 mg PO DIN [facility] Last Admin: 12/05/17 17:37 Dose: 40 mg Folic Acid (Folic Acid) 1 mg PO DAILY [facility] Last Admin: 12/06/17 09:40 Dose: 1 mg Levetiracetam 750 mg/ Sodium (Chloride) 107.5 mls @ 460 mls/hr IV Q12 [facility] Last Admin: 12/06/17 10:43 Dose: 460 mls/hr Insulin Human Regular (Humulin R Low) 0 units SC ACHS [facility] PRN Reason: Protocol Last Admin: 12/06/17 08:32 Dose: Not Given Lorazepam (Ativan) 1 mg IVP Q6H PRN; Protocol PRN Reason: Agitation Last Admin: 12/05/17 14:32 Dose: 1 mg Multivitamins (Thera Tab) 1 tab PO DAILY [facility] Last Admin: 12/06/17 09:40 Dose: 1 tab Nicotine (Nicoderm Cq) 1 patch TD DAILY [facility] Last Admin: 12/06/17 09:37 Dose: 1 patch Ondansetron HCl (Zofran Inj) 4 mg IVP Q4H PRN PRN Reason: Nausea/Vomiting Pantoprazole Sodium (Protonix Ec Tab) 40 mg PO ACB [facility] Last Admin: 12/06/17 09:42 Dose: 40 mg Thiamine HCl (Vitamin B1 Inj) 100 mg IV DAILY [facility] Last Admin: 12/06/17 09:38 Dose: 100 mg Vitamin A (Vitamin A & D Oint Ud Foilpak) 1 ea TOP Q2 PRN PRN Reason: Please use for dry lips - Labs Labs: 12/05/17 06:00 12/05/17 06:00 PT 13.6 SECONDS (9.4-12.5) H 12/02/17 22:45 INR 1.19 (0.93-1.08) H 12/02/17 22:45 APTT 28.5 Seconds (25.1-36.5) 12/04/17 07:00 Attending/Attestation - Attestation I have personally seen and examined this patient.: Yes I have fully participated in the care of the patient.: Yes I have reviewed all pertinent clinical information, including history, physical exam and plan: Yes Notes (Text): 12/06/17 11:20 77 year old male with past medical history of COPD, diabetes and alcohol abuse who presented with altered mental status. Initial CT head showed chronic changes; no acute infarct or bleed. Repeat CT head and MRI brain was reviewed as above. Neurology is following and recommended to repeat CT head today. PT evaluation is also pending. He is on aspirin and statin. He is on keppra. CTA head/neck showed left ICA occlusion. Vascular surgery evaluation was appreciated; no surgical intervention planned. Patient was counselled on smoking and alcohol cessation. He was on antibiotics for possible pneumonia, however CXR and procalcitonin were negative. ID is following. Darlin Dillard MD Hospitalist.
[2017-12-06] MEDS: cefTRIAXone 1 gm 1 GM/100 ML BAG IVPB SCH (13:09)
--- NOTE | 2017-12-06 15:28 | CP.PCM.PN ---
Subjective - Date & Time of Evaluation Date of Evaluation: 12/06/17 Time of Evaluation: 14:15 - Subjective Subjective: Infectious Disease Follow Up: December 06, 2017 Mr. Helms is a 77 year old male with a past medical history significant for COPD, NIDDM2, alcohol abuse and tobacco abuse who presents with two days of AMS. Patient at bedside to provide HPI information. Patient oriented to person, town and year. Patients reports that patient at baseline communicates verbally, is independent with ADL's and ambulates without assistance. For the past two days, patient has been sitting in his chair staring off into the distance without the television on, which is unusual for him. She reports that brought him in today because she noticed that he urinated on the couch. Patients also endorses that patient has had no complaints immediately prior to or during this episode. While he usually drinks alcohol daily, patient has not had anything to drink for the past three days. She also denies any recent medication changes. Patient more cooperative with questioning today. History obtained from the chart. Family not in the room when I examined the patient. He is starting to ambulate. Patient is still with periods of confusion. Patient remains on Keppra. Patient is awake and alert but orientated only to self. He has been more ambulatory. Objective - Vital Signs/Intake and Output Vital Signs (last 24 hours): Temp Pulse Resp BP Pulse Ox 98.6 F 98 H 19 151/94 H 95 12/06/17 06:00 12/06/17 14:00 12/06/17 06:00 12/06/17 06:00 12/06/17 06:00 Intake and Output: 12/06/17 12/06/17 06:59 18:59 Intake Total 0 Output Total 1450 Balance -1450 - Medications Medications: Current Medications Albuterol/Ipratropium (Duoneb 3 Mg/0.5 Mg (3 Ml) Ud) 3 ml IH Q2H PRN PRN Reason: Shortness of Breath Albuterol/Ipratropium (Duoneb 3 Mg/0.5 Mg (3 Ml) Ud) 3 ml IH [id number] [facility] Last Admin: 12/06/17 12:25 Dose: 3 ml Aspirin (Aspirin Chewable) 81 mg PO DAILY [facility] Last Admin: 12/06/17 09:40 Dose: 81 mg Atorvastatin Calcium (Lipitor) 40 mg PO DIN [facility] Last Admin: 12/05/17 17:37 Dose: 40 mg Folic Acid (Folic Acid) 1 mg PO DAILY [facility] Last Admin: 12/06/17 09:40 Dose: 1 mg Levetiracetam 750 mg/ Sodium (Chloride) 107.5 mls @ 460 mls/hr IV Q12 [facility] Last Admin: 12/06/17 10:43 Dose: 460 mls/hr Insulin Human Regular (Humulin R Low) 0 units SC ACHS [facility] PRN Reason: Protocol Last Admin: 12/06/17 12:26 Dose: 2 units Lorazepam (Ativan) 1 mg IVP Q6H PRN; Protocol PRN Reason: Agitation Last Admin: 12/05/17 14:32 Dose: 1 mg Multivitamins (Thera Tab) 1 tab PO DAILY [facility] Last Admin: 12/06/17 09:40 Dose: 1 tab Nicotine (Nicoderm Cq) 1 patch TD DAILY [facility] Last Admin: 12/06/17 09:37 Dose: 1 patch Ondansetron HCl (Zofran Inj) 4 mg IVP Q4H PRN PRN Reason: Nausea/Vomiting Pantoprazole Sodium (Protonix Ec Tab) 40 mg PO ACB [facility] Last Admin: 12/06/17 09:42 Dose: 40 mg Thiamine HCl (Vitamin B1 Inj) 100 mg IV DAILY [facility] Last Admin: 12/06/17 09:38 Dose: 100 mg Vitamin A (Vitamin A & D Oint Ud Foilpak) 1 ea TOP Q2 PRN PRN Reason: Please use for dry lips - Labs Labs: 12/05/17 06:00 12/05/17 06:00 PT 13.6 SECONDS (9.4-12.5) H 12/02/17 22:45 INR 1.19 (0.93-1.08) H 12/02/17 22:45 APTT 28.5 Seconds (25.1-36.5) 12/04/17 07:00 - Constitutional Appears: Non-toxic, No Acute Distress, Chronically Ill - Head Exam Head Exam: ATRAUMATIC, NORMOCEPHALIC - Eye Exam Eye Exam: EOMI, PERRL Pupil Exam: NORMAL ACCOMODATION, PERRL - ENT Exam ENT Exam: Mucous Membranes Moist, Normal External Ear Exam, TM's Normal Bilaterally - Neck Exam Neck Exam: Full ROM, Normal Inspection - Respiratory Exam Respiratory Exam: Clear to Ausculation Bilateral, NORMAL BREATHING PATTERN. absent: Rales, Rhonchi, Wheezes - Cardiovascular Exam Cardiovascular Exam: REGULAR RHYTHM, RRR, +S1, +S2 - GI/Abdominal Exam GI & Abdominal Exam: Soft, Normal Bowel Sounds. absent: Distended, Tenderness - Extremities Exam Extremities Exam: Full ROM, Normal Inspection - Neurological Exam Neurological Exam: Alert, Awake, CN II-XII Intact, Oriented x3 - Psychiatric Exam Psychiatric exam: Normal Affect, Normal Mood - Skin Skin Exam: Intact, Normal Color Assessment and Plan - Assessment and Plan (Free Text) Assessment: 77 yo male with COPD, NIDDM2, alcohol abuse and tobacco abuse who presents with two days of AMS. 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 Chest X-ray negative. Awaiting MRI pending reading. Starting on Ceftriaxone and Azithromycin. Procalcitonin negative. Cultures negative. Supportive care. Patient awake and alert with occasional episode of confusion otherwise he is AAO x 3 now. Ambulating again. No evidence of pneumonia. Hard stop of antibiotics by day 7 but can consider stopping antibiotics on Day 5 of administration. Thank you for allowing me to participate in the care of the patient, we will follow with you.
--- NOTE | 2017-12-06 16:49 | CARD ---
APPROVED REPORT EXAM: Two-dimensional and M-mode echocardiogram with Doppler and color Doppler. INDICATION Thrombus 2D DIMENSIONS Left Atrium (2D)3.1 (1.6-4.0cm)IVSd1.2 (0.7-1.1cm) LVDd3.3 (3.9-5.9cm)PWd1.2 (0.7-1.1cm) LVDs2.5 (2.5-4.0cm)FS (%) 24.5 % LVEF (%)49.9 (>50%) M-Mode DIMENSIONS Aortic Root3.30 (2.2-3.7cm)Aortic Cusp Exc.1.30 (1.5-2.0cm) Aortic Valve AoV Peak Vthymrsx961.0cm/Kaitlin Peak GR.11mmHg Mitral Valve E/A ratio0.0 TDI E/Lateral E'0.0E/Medial E'0.0 Tricuspid Valve TR Peak [id number]/sRAP [id number] Peak Gr.19mmHg [id number] LEFT VENTRICLE The left ventricle is normal size. There is normal left ventricular wall thickness. The left ventricular function is normal. The left ventricular ejection fraction is within the normal range. There is normal LV segmental wall motion. Transmitral Doppler flow pattern is Grade I-abnormal relaxation pattern. RIGHT VENTRICLE The right ventricle is normal size. There is normal right ventricular wall thickness. The right ventricular systolic function is normal. ATRIA The left atrium size is normal. The right atrium size is normal. AORTIC VALVE The aortic valve is mildly to moderately sclerotic. No aortic regurgitation is present. There is no aortic valvular stenosis. MITRAL VALVE The mitral valve is mildly thickened. There is no mitral valve regurgitation noted. There is no mitral valve stenosis. TRICUSPID VALVE The tricuspid valve is normal in structure. There is no tricuspid valve regurgitation noted. GREAT VESSELS The aortic root is normal in size. PERICARDIAL EFFUSION There is a small loculated anterior pericardial effusion. <Conclusion> The left ventricle is normal size. There is normal left ventricular wall thickness. The left ventricular function is normal. The left ventricular ejection fraction is within the normal range. There is normal LV segmental wall motion. Transmitral Doppler flow pattern is Grade I-abnormal relaxation pattern.
[2017-12-07] MEDS: Albuterol-Ipratrop 3 mg / 0.5 (3 ml) UD IH SCH ×6 (04:34→19:39)
--- NOTE | 2017-12-07 07:28 | CP.PCM.PN ---
Subjective - Date & Time of Evaluation Date of Evaluation: 12/07/17 Time of Evaluation: 07:22 - Subjective Subjective: Mr. Mckeon was seen and examined at the bedside. He is awake, but confused to place ( house) and unable to state time and person. He is able to follow simple commands such as opening his mouth, squeezing his hands, raising his bilateral lower extremities. He remains on telesitter for patient safety. Echocardiogram showed LV size, LV wall thickness, LV function , EF, and LV segmental wall motion are all normal. MRI of the brain showed multifocal cerebral infarction is appreciated affecting sub distributions of bilateral MCA, left anterior cerebral artery and bilateral posterior arteries suspicious for embolic type. There is also left ICA occlusion. There is also age-related neurodegenerative changes comprised of atrophy and microangiopathy are diffuse. There was no untoward events overnight. Objective - Vital Signs/Intake and Output Vital Signs (last 24 hours): Temp Pulse Resp BP Pulse Ox 98.4 F 79 18 126/81 98 12/07/17 06:00 12/07/17 06:00 12/07/17 06:00 12/07/17 06:00 12/07/17 06:00 Intake and Output: 12/07/17 12/07/17 06:59 18:59 Intake Total 960 Output Total 2000 Balance -1040 - Medications Medications: Current Medications Albuterol/Ipratropium (Duoneb 3 Mg/0.5 Mg (3 Ml) Ud) 3 ml IH Q2H PRN PRN Reason: Shortness of Breath Albuterol/Ipratropium (Duoneb 3 Mg/0.5 Mg (3 Ml) Ud) 3 ml IH [id number] [facility] Last Admin: 12/07/17 04:34 Dose: Not Given Aspirin (Aspirin Chewable) 81 mg PO DAILY [facility] Last Admin: 12/06/17 09:40 Dose: 81 mg Atorvastatin Calcium (Lipitor) 40 mg PO DIN [facility] Last Admin: 12/06/17 17:43 Dose: 40 mg Folic Acid (Folic Acid) 1 mg PO DAILY [facility] Last Admin: 12/06/17 09:40 Dose: 1 mg Levetiracetam 750 mg/ Sodium (Chloride) 107.5 mls @ 460 mls/hr IV Q12 [facility] Last Admin: 12/06/17 21:28 Dose: 460 mls/hr Insulin Human Regular (Humulin R Low) 0 units SC ACHS [facility] PRN Reason: Protocol Last Admin: 12/06/17 22:19 Dose: Not Given Lorazepam (Ativan) 1 mg IVP Q6H PRN; Protocol PRN Reason: Agitation Last Admin: 12/05/17 14:32 Dose: 1 mg Multivitamins (Thera Tab) 1 tab PO DAILY [facility] Last Admin: 12/06/17 09:40 Dose: 1 tab Nicotine (Nicoderm Cq) 1 patch TD DAILY [facility] Last Admin: 12/06/17 09:37 Dose: 1 patch Ondansetron HCl (Zofran Inj) 4 mg IVP Q4H PRN PRN Reason: Nausea/Vomiting Pantoprazole Sodium (Protonix Ec Tab) 40 mg PO ACB [facility] Last Admin: 12/06/17 09:42 Dose: 40 mg Thiamine HCl (Vitamin B1 Inj) 100 mg IV DAILY [facility] Last Admin: 12/06/17 09:38 Dose: 100 mg Vitamin A (Vitamin A & D Oint Ud Foilpak) 1 ea TOP Q2 PRN PRN Reason: Please use for dry lips - Labs Labs: 12/05/17 06:00 12/05/17 06:00 PT 13.6 SECONDS (9.4-12.5) H 12/02/17 22:45 INR 1.19 (0.93-1.08) H 12/02/17 22:45 APTT 28.5 Seconds (25.1-36.5) 12/04/17 07:00 - Constitutional Appears: No Acute Distress - Head Exam Head Exam: NORMAL INSPECTION - Eye Exam Pupil Exam: PERRL - ENT Exam ENT Exam: Mucous Membranes Moist - Neck Exam Neck Exam: Full ROM - Extremities Exam Extremities Exam: Full ROM, Normal Capillary Refill - Neurological Exam Neurological Exam: Awake Neuro motor strength exam: Left Upper Extremity: 5, Right Upper Extremity: 5, Left Lower Extremity: 4, Right Lower Extremity: 4 Additional comments: awake, with episode of confusion, but follow some simple commands. Sensation is intact Assessment and Plan (1) Ischemic stroke Assessment & Plan: Case discussed with Dr. Orellana, continue all current medical ( including antiplatelet therapy), physical, occupational therapies. Pending EEG results. Recommend blood pressure and glycemic controls, and head of bed elevated. Status: Acute
[2017-12-07] MEDS: Insulin Reg-LOW-Coverage SC SCH ×4 (08:32→21:54)
[2017-12-07] MEDS: Pantoprazole 40 mg EC Tab PO SCH (09:42)
--- NOTE | 2017-12-07 10:29 | CT ---
PROCEDURE: CT HEAD WITHOUT CONTRAST. HISTORY: Follow-up COMPARISON: Comparison made with MRI and CT scan of the brain both dated 12/06/2019 TECHNIQUE: Axial computed tomography images were obtained through the head/brain without intravenous contrast. Radiation dose: Total exam DLP = 1156.07 mGy-cm. This CT exam was performed using one or more of the following dose reduction techniques: Automated exposure control, adjustment of the mA and/or kV according to patient size, and/or use of iterative reconstruction technique. FINDINGS: HEMORRHAGE: No parenchymal, subarachnoid nor extra-axial hemorrhage. BRAIN: Previously noted multifocal acute/subacute infarct changes scattered about both left occipital lobe, right posterior temporoparietal as well as both frontoparietal lobes are less well seen on this study as compared to high-resolution MRI. . Moderate diffuse/confluent chronic periventricular white matter ischemic changes extending peripherally into the deep and subcortical regions of both cerebral hemispheres as well as more discrete deep and subcortical white matter lacunar type infarcts and chronic right superior frontal lobe infarct less also less well seen compared to prior MRI. Mild vascular calcifications both carotid siphons VENTRICLES: No obstructive hydrocephalus. CALVARIUM: There are no acute calvarial fractures. PARANASAL SINUSES: Mild mucosal thickening seen in the right seen in the ethmoid air complex extending superiorly into the frontal sinus. MASTOID AIR CELLS: Unremarkable as visualized. No inflammatory changes. OTHER FINDINGS: None. IMPRESSION: Multifocal acute/ subacute infarcts scattered about both cerebral hemispheres as described. Moderate chronic white matter and old right superior frontal lobe infarct changes No evidence of acute intracranial hemorrhage. Moderate generalized volume loss.
[2017-12-07] MEDS: Thiamine 100 mg/ml Inj IV SCH (10:49)
[2017-12-07] MEDS: Multivitamin Therapeutic Tab PO SCH (10:50)
--- NOTE | 2017-12-07 12:58 | CP.PCM.PN ---
<Alec Moya Linette - Last Filed: 12/07/17 12:53> Subjective - Date & Time of Evaluation Date of Evaluation: 12/07/17 Time of Evaluation: 12:53 - Subjective Subjective: Medicine progress note: Dr. Dillard Patient seen and examined at bedside. No acute events overnight, patient is alert and answering questions appropriately. Offers no new complaints. Objective - Vital Signs/Intake and Output Vital Signs (last 24 hours): Temp Pulse Resp BP Pulse Ox 98.4 F 112 H 18 126/81 98 12/07/17 06:00 12/07/17 10:00 12/07/17 06:00 12/07/17 06:00 12/07/17 06:00 Intake and Output: 12/07/17 12/07/17 06:59 18:59 Intake Total 960 Output Total 2000 Balance -1040 - Medications Medications: Current Medications Albuterol/Ipratropium (Duoneb 3 Mg/0.5 Mg (3 Ml) Ud) 3 ml IH Q2H PRN PRN Reason: Shortness of Breath Albuterol/Ipratropium (Duoneb 3 Mg/0.5 Mg (3 Ml) Ud) 3 ml IH [id number] [facility] Last Admin: 12/07/17 08:41 Dose: 3 ml Aspirin (Aspirin Chewable) 81 mg PO DAILY [facility] Last Admin: 12/07/17 10:50 Dose: 81 mg Atorvastatin Calcium (Lipitor) 40 mg PO DIN [facility] Last Admin: 12/06/17 17:43 Dose: 40 mg Folic Acid (Folic Acid) 1 mg PO DAILY [facility] Last Admin: 12/07/17 10:50 Dose: 1 mg Levetiracetam 750 mg/ Sodium (Chloride) 107.5 mls @ 460 mls/hr IV Q12 [facility] Last Admin: 12/07/17 10:51 Dose: 460 mls/hr Insulin Human Regular (Humulin R Low) 0 units SC ACHS [facility]ATT PRN Reason: Protocol Last Admin: 12/07/17 12:28 Dose: Not Given Lorazepam (Ativan) 1 mg IVP Q6H PRN; Protocol PRN Reason: Agitation Last Admin: 12/05/17 14:32 Dose: 1 mg Multivitamins (Thera Tab) 1 tab PO DAILY [facility] Last Admin: 12/07/17 10:50 Dose: 1 tab Nicotine (Nicoderm Cq) 1 patch TD DAILY [facility] Last Admin: 12/07/17 10:48 Dose: 1 patch Ondansetron HCl (Zofran Inj) 4 mg IVP Q4H PRN PRN Reason: Nausea/Vomiting Pantoprazole Sodium (Protonix Ec Tab) 40 mg PO ACB [facility] Last Admin: 12/07/17 09:42 Dose: 40 mg Thiamine HCl (Vitamin B1 Inj) 100 mg IV DAILY [facility] Last Admin: 12/07/17 10:49 Dose: 100 mg Vitamin A (Vitamin A & D Oint Ud Foilpak) 1 ea TOP Q2 PRN PRN Reason: Please use for dry lips - Labs Labs: 12/05/17 06:00 12/05/17 06:00 PT 13.6 SECONDS (9.4-12.5) H 12/02/17 22:45 INR 1.19 (0.93-1.08) H 12/02/17 22:45 APTT 28.5 Seconds (25.1-36.5) 12/04/17 07:00 - Constitutional Appears: Well - Head Exam Head Exam: ATRAUMATIC, NORMAL INSPECTION, NORMOCEPHALIC - Eye Exam Eye Exam: EOMI, Normal appearance, PERRL Pupil Exam: NORMAL ACCOMODATION, PERRL - ENT Exam ENT Exam: Mucous Membranes Moist, Normal Exam - Neck Exam Neck Exam: Full ROM, Normal Inspection. absent: Lymphadenopathy - Respiratory Exam Respiratory Exam: Clear to Ausculation Bilateral, NORMAL BREATHING PATTERN - Cardiovascular Exam Cardiovascular Exam: REGULAR RHYTHM, +S1, +S2. absent: Murmur - GI/Abdominal Exam GI & Abdominal Exam: Soft, Normal Bowel Sounds. absent: Tenderness - Extremities Exam Extremities Exam: Full ROM, Normal Capillary Refill, Normal Inspection. absent : Joint Swelling, Pedal Edema - Back Exam Back Exam: NORMAL INSPECTION - Neurological Exam Neurological Exam: Alert, Awake, CN II-XII Intact, Normal Gait, Oriented x3 - Psychiatric Exam Psychiatric exam: Normal Affect, Normal Mood - Skin Skin Exam: Dry, Intact, Normal Color, Warm Assessment and Plan - Assessment and Plan (Free Text) Assessment: 77 year old male with pertinent medical history of alcohol and tobacco abuse presented on 12/03/17 with two days of altered mental status. 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 Lipid panel was normal and troponin was negative X1; Tox negative. Patient had another CT Head done today, 12/07/17, which was also negative for hemorrhagic transformation. 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 Since the duration of the occlusion is unknown, patient could also be having AMS 2/2 seizure activity; EEG pending. Patient is AA/O X 3 today. Altered Mental Status likely 2/2 CVA VS Seizure - Continue SCD and ASA/Lipitor; hold other anticoagulation - Keppra Drip for suspicion of seizure activity - Surgical intervention not indicated at this time (unknown duration of Occluded LICA) - Neurology Consult: Dr. Spring - follow recs Chronic Alcohol Abuse - Ativan 1mg Q6 PRN; Thiamine, Folic Acid, MTV, Zofran, Vitamin A - CIWA, Moderate fall, Aspiration, and Seizure precautions; Neurocheck q4; HOB 30 degrees - Advised cessation Chronic Tobacco Abuse - Nicotine patch - Advised cessation History COPD - Duonebs MATT and PRN History DM 2 - RISS Low Prophylaxis - SCD/Protonix <Nishant,Darlin A - Last Filed: 12/07/17 14:21> Objective - Vital Signs/Intake and Output Vital Signs (last 24 hours): Temp Pulse Resp BP Pulse Ox 97.2 F L 84 18 138/82 98 12/07/17 12:00 12/07/17 12:00 12/07/17 12:00 12/07/17 12:00 12/07/17 06:00 Intake and Output: 12/07/17 12/07/17 06:59 18:59 Intake Total 960 Output Total 1999 Balance -1040 - Medications Medications: Current Medications Albuterol/Ipratropium (Duoneb 3 Mg/0.5 Mg (3 Ml) Ud) 3 ml IH Q2H PRN PRN Reason: Shortness of Breath Albuterol/Ipratropium (Duoneb 3 Mg/0.5 Mg (3 Ml) Ud) 3 ml IH [id number] [facility] Last Admin: 12/07/17 14:06 Dose: 3 ml Aspirin (Aspirin Chewable) 81 mg PO DAILY [facility] Last Admin: 12/07/17 10:50 Dose: 81 mg Atorvastatin Calcium (Lipitor) 40 mg PO DIN [facility] Last Admin: 12/06/17 17:43 Dose: 40 mg Folic Acid (Folic Acid) 1 mg PO DAILY [facility] Last Admin: 12/07/17 10:50 Dose: 1 mg Levetiracetam 750 mg/ Sodium (Chloride) 107.5 mls @ 460 mls/hr IV Q12 [facility] Last Admin: 12/07/17 10:51 Dose: 460 mls/hr Insulin Human Regular (Humulin R Low) 0 units SC ACHS [facility] PRN Reason: Protocol Last Admin: 12/07/17 12:28 Dose: Not Given Lorazepam (Ativan) 1 mg IVP Q6H PRN; Protocol PRN Reason: Agitation Last Admin: 12/05/17 14:32 Dose: 1 mg Multivitamins (Thera Tab) 1 tab PO DAILY [facility] Last Admin: 12/07/17 10:50 Dose: 1 tab Nicotine (Nicoderm Cq) 1 patch TD DAILY [facility] Last Admin: 12/07/17 10:48 Dose: 1 patch Ondansetron HCl (Zofran Inj) 4 mg IVP Q4H PRN PRN Reason: Nausea/Vomiting Pantoprazole Sodium (Protonix Ec Tab) 40 mg PO ACB [facility] Last Admin: 12/07/17 09:42 Dose: 40 mg Thiamine HCl (Vitamin B1 Inj) 100 mg IV DAILY [facility] Last Admin: 12/07/17 10:49 Dose: 100 mg Vitamin A (Vitamin A & D Oint Ud Foilpak) 1 ea TOP Q2 PRN PRN Reason: Please use for dry lips - Labs Labs: 12/05/17 06:00 12/05/17 06:00 PT 13.6 SECONDS (9.4-12.5) H 12/02/17 22:45 INR 1.19 (0.93-1.08) H 12/02/17 22:45 APTT 28.5 Seconds (25.1-36.5) 12/04/17 07:00 Attending/Attestation - Attestation I have personally seen and examined this patient.: Yes I have fully participated in the care of the patient.: Yes I have reviewed all pertinent clinical information, including history, physical exam and plan: Yes Notes (Text): 12/07/17 14:18 77 year old male with past medical history of COPD, diabetes and alcohol abuse who presented with altered mental status. Initial CT head showed chronic changes; no acute infarct or bleed. MRI brain and repeat CT head were reviewed as above. He is being followed by neurology and PT. He is on aspirin and statin. He is also on keppra. EEG is pending. CTA head/neck showed left ICA occlusion. Vascular surgery evaluation was appreciated; no surgical intervention planned. Patient was counselled on smoking and alcohol cessation. Darlin Dillard MD Hospitalist.
--- NOTE | 2017-12-07 17:29 | CP.PCM.PN ---
Subjective - Date & Time of Evaluation Date of Evaluation: 12/07/17 Time of Evaluation: 15:30 - Subjective Subjective: Infectious Disease Follow Up: December 07, 2017 Mr. Helms is a 77 year old male with a past medical history significant for COPD, NIDDM2, alcohol abuse and tobacco abuse who presents with two days of AMS. Patient at bedside to provide HPI information. Patient oriented to person, town and year. Patients reports that patient at baseline communicates verbally, is independent with ADL's and ambulates without assistance. For the past two days, patient has been sitting in his chair staring off into the distance without the television on, which is unusual for him. She reports that brought him in today because she noticed that he urinated on the couch. Patients also endorses that patient has had no complaints immediately prior to or during this episode. While he usually drinks alcohol daily, patient has not had anything to drink for the past three days. She also denies any recent medication changes. Patient more cooperative with questioning today. History obtained from the chart. Family not in the room when I examined the patient. He is starting to ambulate. Patient no further episodes of confusion. Patient remains on Keppra. Patient is awake and alert and orientated. He has been more ambulatory. Objective - Vital Signs/Intake and Output Vital Signs (last 24 hours): Temp Pulse Resp BP Pulse Ox 97.2 F L 79 18 138/82 98 12/07/17 12:00 12/07/17 14:00 12/07/17 12:00 12/07/17 12:00 12/07/17 06:00 Intake and Output: 12/07/17 12/07/17 06:59 18:59 Intake Total 960 600 Output Total 2000 750 Balance -1040 -150 - Medications Medications: Current Medications Albuterol/Ipratropium (Duoneb 3 Mg/0.5 Mg (3 Ml) Ud) 3 ml IH Q2H PRN PRN Reason: Shortness of Breath Albuterol/Ipratropium (Duoneb 3 Mg/0.5 Mg (3 Ml) Ud) 3 ml IH [id number] Last Admin: 12/07/17 14:47 Dose: 3 ml Aspirin (Aspirin Chewable) 81 mg PO DAILY [facility] Last Admin: 12/07/17 10:50 Dose: 81 mg Atorvastatin Calcium (Lipitor) 40 mg PO DIN [facility] Last Admin: 12/06/17 17:43 Dose: 40 mg Folic Acid (Folic Acid) 1 mg PO DAILY [facility] Last Admin: 12/07/17 10:50 Dose: 1 mg Levetiracetam 750 mg/ Sodium (Chloride) 107.5 mls @ 460 mls/hr IV Q12 [facility] Last Admin: 12/07/17 10:51 Dose: 460 mls/hr Insulin Human Regular (Humulin R Low) 0 units SC ACHS [facility] PRN Reason: Protocol Last Admin: 12/07/17 17:01 Dose: Not Given Lorazepam (Ativan) 1 mg IVP Q6H PRN; Protocol PRN Reason: Agitation Last Admin: 12/05/17 14:32 Dose: 1 mg Multivitamins (Thera Tab) 1 tab PO DAILY [facility] Last Admin: 12/07/17 10:50 Dose: 1 tab Nicotine (Nicoderm Cq) 1 patch TD DAILY [facility] Last Admin: 12/07/17 10:48 Dose: 1 patch Ondansetron HCl (Zofran Inj) 4 mg IVP Q4H PRN PRN Reason: Nausea/Vomiting Pantoprazole Sodium (Protonix Ec Tab) 40 mg PO ACB [facility] Last Admin: 12/07/17 09:42 Dose: 40 mg Thiamine HCl (Vitamin B1 Inj) 100 mg IV DAILY [facility] Last Admin: 12/07/17 10:49 Dose: 100 mg Vitamin A (Vitamin A & D Oint Ud Foilpak) 1 ea TOP Q2 PRN PRN Reason: Please use for dry lips - Labs Labs: 12/05/17 06:00 12/05/17 06:00 PT 13.6 SECONDS (9.4-12.5) H 12/02/17 22:45 INR 1.19 (0.93-1.08) H 12/02/17 22:45 APTT 28.5 Seconds (25.1-36.5) 12/04/17 07:00 - Constitutional Appears: Non-toxic, No Acute Distress, Chronically Ill - Head Exam Head Exam: ATRAUMATIC, NORMOCEPHALIC - Eye Exam Eye Exam: EOMI, PERRL Pupil Exam: NORMAL ACCOMODATION, PERRL - ENT Exam ENT Exam: Mucous Membranes Moist, Normal External Ear Exam, TM's Normal Bilaterally - Neck Exam Neck Exam: Full ROM, Normal Inspection - Respiratory Exam Respiratory Exam: Clear to Ausculation Bilateral, NORMAL BREATHING PATTERN. absent: Rales, Rhonchi, Wheezes - Cardiovascular Exam Cardiovascular Exam: REGULAR RHYTHM, RRR, +S1, +S2 - GI/Abdominal Exam GI & Abdominal Exam: Soft, Normal Bowel Sounds. absent: Distended, Tenderness - Extremities Exam Extremities Exam: Full ROM, Normal Inspection - Neurological Exam Neurological Exam: Alert, Awake, CN II-XII Intact, Oriented x3 - Psychiatric Exam Psychiatric exam: Normal Affect, Normal Mood - Skin Skin Exam: Intact, Normal Color Assessment and Plan - Assessment and Plan (Free Text) Assessment: 77 yo male with COPD, NIDDM2, alcohol abuse and tobacco abuse who presents with two days of AMS. 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 Chest X-ray negative. Awaiting MRI pending reading. Starting on Ceftriaxone and Azithromycin. Procalcitonin negative. Cultures negative. Supportive care. Patient awake and alert with occasional episode of confusion otherwise he is AAO x 3 now. Ambulating again. No evidence of pneumonia. Hard stop of antibiotics by day 7 but can consider stopping antibiotics on Day 5 of administration. Off antibiotics now. Thank you for allowing me to participate in the care of the patient, we will follow with you.
[2017-12-08] MEDS: Albuterol-Ipratrop 3 mg / 0.5 (3 ml) UD IH SCH ×6 (00:03→20:00)
[2017-12-08] MEDS: Insulin Reg-LOW-Coverage SC SCH ×4 (07:32→21:31)
[2017-12-08] MEDS: Multivitamin Therapeutic Tab PO SCH (11:02)
[2017-12-08] MEDS: Pantoprazole 40 mg EC Tab PO SCH (11:02)
[2017-12-08] MEDS: Thiamine 100 mg/ml Inj IV SCH (11:02)
[2017-12-08 11:07] LABS: BASO # 0.01 K/mm3 (0.0-2.0); BASO % 0.1 % (0.0-3.0); EOS # 0.1 (0.0-0.7); EOS % 0.5 % (1.5-5.0); GRAN # 8.79 (1.4-6.5); GRAN % 75.3 % (50.0-68.0); HEMOGLOBIN 14.9 g/dL (14.0-18.0); LYMPH # 1.1 (1.2-3.4); LYMPH % 9.2 % (22.0-35.0); MEAN CELL VOLUME 83.6 fl (80.0-105.0); MEAN CORPUSCULAR HEMOGLOBIN 28.2 pg (25.0-35.0); MEAN CORPUSCULAR HGB CONC 33.7 g/dl (31.0-37.0); MEAN PLATELET VOLUME 9.7 fl (7.0-11.0); MONO # 1.7 (0.1-0.6); MONO % 14.9 % (1.0-6.0); RBC 5.29 10^6/uL (3.5-6.1); RED CELL DISTRIBUTION WIDTH 14.5 % (11.5-14.5); WHITE BLOOD COUNT 11.7 10^3/ul (4.5-11.0)
[2017-12-08] MEDS ORDERED: Potassium Chloride 40 mEq/30 ml LIQ UD PO ONE (11:13)
[2017-12-08 11:24] LABS: ALB/GLOB RATIO 1.1 (1.1-1.8); ALBUMIN 3.7 g/dL (3.0-4.8); ALT/SGPT 34 U/L (7-56); AST/SGOT 29 U/L (17-59); BLOOD UREA NITROGEN 20 mg/dL (7-21); CALCIUM 9.6 mg/dL (8.4-10.5); GFR AFRICAN-AMERICAN > 60; GFR NON-AFRICAN AMERICAN > 60
--- NOTE | 2017-12-08 11:58 | CP.PCM.PN ---
Subjective - Date & Time of Evaluation Date of Evaluation: 12/08/17 Time of Evaluation: 11:56 - Subjective Subjective: Mr. Mckeon was seen and examined at the bedside. He is alert with episode of confusion. He states of place ( [facility] [place] ( [place]but was able to state person ( [facility]). He is more alert, coherent today in comparison from yesterday. He is able to follow simple commands and able to ambulate with walker and assistance from therapy dept. from his room to the hallway. EEG preliminary results showed no seizure activity.He remains on telesitter for patient safety. There was no untoward events overnight. Objective - Vital Signs/Intake and Output Vital Signs (last 24 hours): Temp Pulse Resp BP Pulse Ox 98.1 F 88 19 141/77 94 L 12/08/17 00:01 12/08/17 02:00 12/08/17 00:01 12/08/17 00:01 12/08/17 00:01 Intake and Output: 12/08/17 12/08/17 06:59 18:59 Intake Total 720 Output Total 575 Balance 145 - Medications Medications: Current Medications Albuterol/Ipratropium (Duoneb 3 Mg/0.5 Mg (3 Ml) Ud) 3 ml IH Q2H PRN PRN Reason: Shortness of Breath Albuterol/Ipratropium (Duoneb 3 Mg/0.5 Mg (3 Ml) Ud) 3 ml IH [id number] [facility] Last Admin: 12/08/17 11:09 Dose: 3 ml Aspirin (Aspirin Chewable) 81 mg PO DAILY [facility] Last Admin: 12/08/17 11:02 Dose: 81 mg Atorvastatin Calcium (Lipitor) 40 mg PO DIN [facility] Last Admin: 12/07/17 17:30 Dose: 40 mg Folic Acid (Folic Acid) 1 mg PO DAILY [facility] Last Admin: 12/08/17 11:02 Dose: 1 mg Levetiracetam 750 mg/ Sodium (Chloride) 107.5 mls @ 460 mls/hr IV Q12 [facility] Last Admin: 12/08/17 11:02 Dose: 460 mls/hr Insulin Human Regular (Humulin R Low) 0 units SC ACHS [facility] PRN Reason: Protocol Last Admin: 12/08/17 07:32 Dose: Not Given Lorazepam (Ativan) 1 mg IVP Q6H PRN; Protocol PRN Reason: Agitation Last Admin: 12/05/17 14:32 Dose: 1 mg Multivitamins (Thera Tab) 1 tab PO DAILY [facility] Last Admin: 12/08/17 11:02 Dose: 1 tab Nicotine (Nicoderm Cq) 1 patch TD DAILY [facility] Last Admin: 12/08/17 11:03 Dose: 1 patch Ondansetron HCl (Zofran Inj) 4 mg IVP Q4H PRN PRN Reason: Nausea/Vomiting Pantoprazole Sodium (Protonix Ec Tab) 40 mg PO ACB [facility] Last Admin: 12/08/17 11:02 Dose: 40 mg Thiamine HCl (Vitamin B1 Tab) 100 mg PO DAILY [facility] Vitamin A (Vitamin A & D Oint Ud Foilpak) 1 ea TOP Q2 PRN PRN Reason: Please use for dry lips - Labs Labs: 12/08/17 10:50 12/08/17 10:50 PT 13.6 SECONDS (9.4-12.5) H 12/02/17 22:45 INR 1.19 (0.93-1.08) H 12/02/17 22:45 APTT 28.5 Seconds (25.1-36.5) 12/04/17 07:00 - Constitutional Appears: No Acute Distress - Head Exam Head Exam: NORMAL INSPECTION - Neurological Exam Neurological Exam: Alert, Awake Neuro motor strength exam: Left Upper Extremity: 5, Right Upper Extremity: 5, Left Lower Extremity: 4, Right Lower Extremity: 4 Additional comments: Neurological improved from previous examination Assessment and Plan (1) Ischemic stroke Assessment & Plan: Case discussed with Dr. Orellana, continue all current medical ( including antiplatelet therapy), physical, occupational therapies. Recommend blood pressure and glycemic controls, head of bed elevated at least 30 degrees, and rehab for discharge planning. Status: Acute
--- NOTE | 2017-12-08 14:09 | CP.PCM.PN ---
<Daniel Matias - Last Filed: 12/08/17 14:03> Subjective - Date & Time of Evaluation Date of Evaluation: 12/08/17 Time of Evaluation: 07:00 - Subjective Subjective: Patient seen and evaluated this AM. No acute events reported overnight. Patient is AAOx3. Patient with minimal responses to questioning. Denies chest pain, shortness of breath, weakness, numbness, abdominal pain, fever, nausea, diarrhea. Objective - Vital Signs/Intake and Output Vital Signs (last 24 hours): Temp Pulse Resp BP Pulse Ox 97.8 F 75 20 130/77 94 L 12/08/17 12:00 12/08/17 12:00 12/08/17 12:00 12/08/17 12:00 12/08/17 00:01 Intake and Output: 12/08/17 12/08/17 06:59 18:59 Intake Total 720 Output Total 575 Balance 145 - Medications Medications: Current Medications Albuterol/Ipratropium (Duoneb 3 Mg/0.5 Mg (3 Ml) Ud) 3 ml IH Q2H PRN PRN Reason: Shortness of Breath Albuterol/Ipratropium (Duoneb 3 Mg/0.5 Mg (3 Ml) Ud) 3 ml IH [id number] [facility] Last Admin: 12/08/17 11:09 Dose: 3 ml Aspirin (Aspirin Chewable) 81 mg PO DAILY [facility] Last Admin: 12/08/17 11:02 Dose: 81 mg Atorvastatin Calcium (Lipitor) 40 mg PO DIN [facility] Last Admin: 12/07/17 17:30 Dose: 40 mg Folic Acid (Folic Acid) 1 mg PO DAILY [facility] Last Admin: 12/08/17 11:02 Dose: 1 mg Insulin Human Regular (Humulin R Low) 0 units SC ACHS [facility] PRN Reason: Protocol Last Admin: 12/08/17 13:19 Dose: Not Given Levetiracetam (Keppra) 750 mg PO Q12 [facility] Lorazepam (Ativan) 1 mg IVP Q6H PRN; Protocol PRN Reason: Agitation Last Admin: 12/05/17 14:32 Dose: 1 mg Multivitamins (Thera Tab) 1 tab PO DAILY [facility] Last Admin: 12/08/17 11:02 Dose: 1 tab Nicotine (Nicoderm Cq) 1 patch TD DAILY [facility] Last Admin: 12/08/17 11:03 Dose: 1 patch Ondansetron HCl (Zofran Inj) 4 mg IVP Q4H PRN PRN Reason: Nausea/Vomiting Pantoprazole Sodium (Protonix Ec Tab) 40 mg PO ACB [facility] Last Admin: 12/08/17 11:02 Dose: 40 mg Thiamine HCl (Vitamin B1 Tab) 100 mg PO DAILY [facility] Vitamin A (Vitamin A & D Oint Ud Foilpak) 1 ea TOP Q2 PRN PRN Reason: Please use for dry lips - Labs Labs: 12/08/17 10:50 12/08/17 10:50 PT 13.6 SECONDS (9.4-12.5) H 12/02/17 22:45 INR 1.19 (0.93-1.08) H 12/02/17 22:45 APTT 28.5 Seconds (25.1-36.5) 12/04/17 07:00 - Constitutional Appears: No Acute Distress - Head Exam Head Exam: ATRAUMATIC - Eye Exam Eye Exam: EOMI, PERRL - Respiratory Exam Respiratory Exam: Clear to Ausculation Bilateral, NORMAL BREATHING PATTERN - Cardiovascular Exam Cardiovascular Exam: REGULAR RHYTHM, +S1, +S2 - GI/Abdominal Exam GI & Abdominal Exam: Soft, Normal Bowel Sounds. absent: Tenderness - Extremities Exam Extremities Exam: Normal Capillary Refill. absent: Pedal Edema, Tenderness - Neurological Exam Neurological Exam: Alert, Awake, Oriented x3 Neuro motor strength exam: Left Upper Extremity: 5, Right Upper Extremity: 5, Left Lower Extremity: 4, Right Lower Extremity: 4 - Psychiatric Exam Psychiatric exam: Flat Affect - Skin Skin Exam: Dry, Warm Assessment and Plan - Assessment and Plan (Free Text) Assessment: 77 year old male with past medical history of alcohol and tobacco abuse presented on 12/03/17 with 2 days of altered mental status. 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 Lipid panel was normal and troponin was negative X1; Tox negative. Patient had another CT Head done, 12/07/17, which was also negative for hemorrhagic transformation. 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 Since the duration of the occlusion is unknown, patient could also be having AMS 2/2 seizure activity. Neurology is consulted and following patient Plan: Altered Mental Status - Etiology: CVA vs. seizure - Continue SCD and ASA/Lipitor; hold other anticoagulation - Keppra Drip for suspicion of seizure activity - Surgical intervention not indicated at this time (unknown duration of Occluded LICA) - Neurology Consult - continue current medicla physical occupational therapies - EEG reported as normal - PT evaluation recommending acute rehab Chronic Alcohol Abuse - Ativan 1mg Q6 PRN; Thiamine, Folic Acid, MTV, Zofran, Vitamin A - CIWA, Moderate fall, Aspiration, and Seizure precautions; Neurocheck q4; HOB 30 degrees - Cessation education provided Chronic Tobacco Abuse - Nicotine patch - Cessation education provided History COPD - Duonebs MATT and PRN History DM 2 - ISS Low - ACHS GI/DVT Prophylaxis - Protonix - SCD Case and plan discussed with attending <Darlin Dillard - Last Filed: 12/08/17 14:16> Objective - Vital Signs/Intake and Output Vital Signs (last 24 hours): Temp Pulse Resp BP Pulse Ox 97.8 F 75 20 130/77 94 L 12/08/17 12:00 12/08/17 12:00 12/08/17 12:00 12/08/17 12:00 12/08/17 00:01 Intake and Output: 12/08/17 12/08/17 06:59 18:59 Intake Total 720 Output Total 575 Balance 145 - Medications Medications: Current Medications Albuterol/Ipratropium (Duoneb 3 Mg/0.5 Mg (3 Ml) Ud) 3 ml IH Q2H PRN PRN Reason: Shortness of Breath Albuterol/Ipratropium (Duoneb 3 Mg/0.5 Mg (3 Ml) Ud) 3 ml IH [id number] [facility] Last Admin: 12/08/17 11:09 Dose: 3 ml Aspirin (Aspirin Chewable) 81 mg PO DAILY [facility] Last Admin: 12/08/17 11:02 Dose: 81 mg Atorvastatin Calcium (Lipitor) 40 mg PO DIN [facility] Last Admin: 12/07/17 17:30 Dose: 40 mg Folic Acid (Folic Acid) 1 mg PO DAILY [facility] Last Admin: 12/08/17 11:02 Dose: 1 mg Insulin Human Regular (Humulin R Low) 0 units SC ACHS [facility] PRN Reason: Protocol Last Admin: 12/08/17 13:19 Dose: Not Given Levetiracetam (Keppra) 750 mg PO Q12 [facility] Lorazepam (Ativan) 1 mg IVP Q6H PRN; Protocol PRN Reason: Agitation Last Admin: 12/05/17 14:32 Dose: 1 mg Multivitamins (Thera Tab) 1 tab PO DAILY [facility] Last Admin: 12/08/17 11:02 Dose: 1 tab Nicotine (Nicoderm Cq) 1 patch TD DAILY [facility] Last Admin: 12/08/17 11:03 Dose: 1 patch Ondansetron HCl (Zofran Inj) 4 mg IVP Q4H PRN PRN Reason: Nausea/Vomiting Pantoprazole Sodium (Protonix Ec Tab) 40 mg PO ACB [facility] Last Admin: 12/08/17 11:02 Dose: 40 mg Thiamine HCl (Vitamin B1 Tab) 100 mg PO DAILY [facility] Vitamin A (Vitamin A & D Oint Ud Foilpak) 1 ea TOP Q2 PRN PRN Reason: Please use for dry lips - Labs Labs: 12/08/17 10:50 12/08/17 10:50 PT 13.6 SECONDS (9.4-12.5) H 12/02/17 22:45 INR 1.19 (0.93-1.08) H 12/02/17 22:45 APTT 28.5 Seconds (25.1-36.5) 12/04/17 07:00 Attending/Attestation - Attestation I have personally seen and examined this patient.: Yes I have fully participated in the care of the patient.: Yes I have reviewed all pertinent clinical information, including history, physical exam and plan: Yes Notes (Text): 12/08/17 14:15 77 year old male with past medical history of COPD, diabetes and alcohol abuse who presented with altered mental status. Initial CT head showed chronic changes; no acute infarct or bleed. MRI brain and repeat CT head were reviewed as above. He is being followed by neurology and PT. He is on aspirin and statin. He is also on keppra switched to po today. EEG was done with pending report. CTA head/neck showed left ICA occlusion. Vascular surgery evaluation was appreciated; no surgical intervention planned. Patient was counselled on smoking and alcohol cessation. Will d/c [facility]anez today. D/c planning to acute rehab. Darlin Dillard MD Hospitalist.
--- NOTE | 2017-12-08 18:04 | CP.PCM.PN ---
Subjective - Date & Time of Evaluation Date of Evaluation: 12/08/17 Time of Evaluation: 15:00 - Subjective Subjective: Infectious Disease Follow Up: December 08, 2017 Mr. Helms is a 77 year old male with a past medical history significant for COPD, NIDDM2, alcohol abuse and tobacco abuse who presents with two days of AMS. Patient at bedside to provide HPI information. Patient oriented to person, town and year. Patients reports that patient at baseline communicates verbally, is independent with ADL's and ambulates without assistance. For the past two days, patient has been sitting in his chair staring off into the distance without the television on, which is unusual for him. She reports that brought him in today because she noticed that he urinated on the couch. Patients also endorses that patient has had no complaints immediately prior to or during this episode. While he usually drinks alcohol daily, patient has not had anything to drink for the past three days. She also denies any recent medication changes. Patient more cooperative with questioning today. History obtained from the chart. Family not in the room when I examined the patient. He is starting to ambulate. Patient no further episodes of confusion. Patient remains on Keppra. Patient is awake and alert and orientated. He has been more ambulatory. Does not like to converse. Objective - Vital Signs/Intake and Output Vital Signs (last 24 hours): Temp Pulse Resp BP Pulse Ox 97.8 F 89 20 130/77 94 L 12/08/17 12:00 12/08/17 14:00 12/08/17 12:00 12/08/17 12:00 12/08/17 00:01 Intake and Output: 12/08/17 12/08/17 06:59 18:59 Intake Total 720 420 Output Total 575 300 Balance 145 120 - Medications Medications: Current Medications Albuterol/Ipratropium (Duoneb 3 Mg/0.5 Mg (3 Ml) Ud) 3 ml IH Q2H PRN PRN Reason: Shortness of Breath Albuterol/Ipratropium (Duoneb 3 Mg/0.5 Mg (3 Ml) Ud) 3 ml IH [id number] [facility] Last Admin: 12/08/17 15:46 Dose: 3 ml Aspirin (Aspirin Chewable) 81 mg PO DAILY [facility] Last Admin: 12/08/17 11:02 Dose: 81 mg Atorvastatin Calcium (Lipitor) 40 mg PO DIN [facility] Last Admin: 12/08/17 17:44 Dose: 40 mg Folic Acid (Folic Acid) 1 mg PO DAILY [facility] Last Admin: 12/08/17 11:02 Dose: 1 mg Insulin Human Regular (Humulin R Low) 0 units SC ACHS [facility] PRN Reason: Protocol Last Admin: 12/08/17 17:20 Dose: Not Given Levetiracetam (Keppra) 750 mg PO Q12 [facility] Lorazepam (Ativan) 1 mg IVP Q6H PRN; Protocol PRN Reason: Agitation Last Admin: 12/05/17 14:32 Dose: 1 mg Multivitamins (Thera Tab) 1 tab PO DAILY [facility] Last Admin: 12/08/17 11:02 Dose: 1 tab Nicotine (Nicoderm Cq) 1 patch TD DAILY [facility] Last Admin: 12/08/17 11:03 Dose: 1 patch Ondansetron HCl (Zofran Inj) 4 mg IVP Q4H PRN PRN Reason: Nausea/Vomiting Pantoprazole Sodium (Protonix Ec Tab) 40 mg PO ACB [facility] Last Admin: 12/08/17 11:02 Dose: 40 mg Thiamine HCl (Vitamin B1 Tab) 100 mg PO DAILY [facility] Vitamin A (Vitamin A & D Oint Ud Foilpak) 1 ea TOP Q2 PRN PRN Reason: Please use for dry lips - Labs Labs: 12/08/17 10:50 12/08/17 10:50 PT 13.6 SECONDS (9.4-12.5) H 12/02/17 22:45 INR 1.19 (0.93-1.08) H 12/02/17 22:45 APTT 28.5 Seconds (25.1-36.5) 12/04/17 07:00 - Constitutional Appears: Non-toxic, No Acute Distress, Chronically Ill - Head Exam Head Exam: ATRAUMATIC, NORMOCEPHALIC - Eye Exam Eye Exam: EOMI, PERRL Pupil Exam: NORMAL ACCOMODATION, PERRL - ENT Exam ENT Exam: Mucous Membranes Moist, Normal External Ear Exam, TM's Normal Bilaterally - Neck Exam Neck Exam: Full ROM, Normal Inspection - Respiratory Exam Respiratory Exam: Clear to Ausculation Bilateral, NORMAL BREATHING PATTERN. absent: Rales, Rhonchi, Wheezes - Cardiovascular Exam Cardiovascular Exam: REGULAR RHYTHM, RRR, +S1, +S2 - GI/Abdominal Exam GI & Abdominal Exam: Soft, Normal Bowel Sounds. absent: Distended, Tenderness - Extremities Exam Extremities Exam: Full ROM, Normal Inspection - Neurological Exam Neurological Exam: Alert, Awake, CN II-XII Intact, Oriented x3 - Psychiatric Exam Psychiatric exam: Normal Affect, Normal Mood - Skin Skin Exam: Intact, Normal Color Assessment and Plan - Assessment and Plan (Free Text) Assessment: 77 yo male with COPD, NIDDM2, alcohol abuse and tobacco abuse who presents with two days of AMS. 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 Chest X-ray negative. Awaiting MRI pending reading. Starting on Ceftriaxone and Azithromycin. Procalcitonin negative. Cultures negative. Supportive care. Patient awake and alert with occasional episode of confusion otherwise he is AAO x 3 now. Ambulating again. No evidence of pneumonia. Hard stop of antibiotics by day 7 but can consider stopping antibiotics on Day 5 of administration. Off antibiotics now. No new issues. Thank you for allowing me to participate in the care of the patient, we will follow with you.
[2017-12-08] MEDS: levETIRAcetam 500 mg/5ml UD cups PO SCH (21:31)
[2017-12-09] MEDS: Albuterol-Ipratrop 3 mg / 0.5 (3 ml) UD IH SCH ×5 (01:38→15:40)
[2017-12-09 05:38] VITALS: O2SAT 95
[2017-12-09] MEDS: Insulin Reg-LOW-Coverage SC SCH ×2 (07:59→12:29)
[2017-12-09] MEDS: Pantoprazole 40 mg EC Tab PO SCH (08:11)
--- NOTE | 2017-12-09 08:48 | EEG ---
DATE: Technical Information: Electrodes were placed according to the 10-20 International electrode system by ct mri technologist. Total of 23 electrodes (21 EEG and 2 EKG) were placed. EEG activity was digitally recorded referentially to P1/P2 or A1/A2 electrodes. Continuous monitoring with EEG was performed using digital analysis for spike detection. The [employer] spike and seizure detection algorithms were used for digital EEG analysis throughout the monitoring period to screen the EEG in real-time and seda the data file with pointers to electrographic seizures and interictal discharges. EEG was screened for electrographic seizures and interictal discharges by a technologist. Physician, epileptologist reviewed detections as well as extensive random samples and whole EEG study in detail. Digital EEG Analysis: Was carried out including FFT (Fast Fourier Transform), R2D2 (Rhythmicity Run Detection and Display), Relative Asymmetry Spectrogram, and voltage plot by the [employer] Software. The qualitative EEG analysis and the voltage plot mapping were used for detection of foci of paroxysmal and abnormal electrical cortical activity. General Description: Background Rhythm: There is a well-formed, 8-10 Hz posterior dominant rhythm that is reactive, symmetric, and attenuates with eye opening. There was a normal amount of frontal beta noted bilaterally. There is no sleep recorded. Activation Procedures: Photic stimulation: There is no driving noted. Hyperventilation: There is slowing noted that is self-remitted. Abnormal Activity: There are no focal epileptiform discharges noted. No clinical or subclinical seizures noted. IMPRESSION: This is a normal awake and drowsy EEG. Clinical correlation is required. Jessica Orellana MD
[2017-12-09] MEDS: levETIRAcetam 500 mg/5ml UD cups PO SCH (10:19)
[2017-12-09] MEDS: Multivitamin Therapeutic Tab PO SCH (10:20)
[2017-12-09 11:23] LABS: BASO # 0.05 K/mm3 (0.0-2.0); BASO % 0.5 % (0.0-3.0); EOS # 0.1 (0.0-0.7); GRAN # 7.21 (1.4-6.5); GRAN % 71.3 % (50.0-68.0); HEMOGLOBIN 14.9 g/dL (14.0-18.0); LYMPH # 1.4 (1.2-3.4); LYMPH % 14.1 % (22.0-35.0); MEAN CELL VOLUME 83.6 fl (80.0-105.0); MEAN CORPUSCULAR HEMOGLOBIN 28.2 pg (25.0-35.0); MEAN CORPUSCULAR HGB CONC 33.7 g/dl (31.0-37.0); MEAN PLATELET VOLUME 9.8 fl (7.0-11.0); MONO # 1.3 (0.1-0.6); MONO % 13.1 % (1.0-6.0); RBC 5.29 10^6/uL (3.5-6.1); RED CELL DISTRIBUTION WIDTH 14.6 % (11.5-14.5); WHITE BLOOD COUNT 10.1 10^3/ul (4.5-11.0)
[2017-12-09 12:20] VITALS: BP 108/68; RESP 20; TEMP 98.7
--- NOTE | 2017-12-09 13:32 | CP.PCM.PN ---
<Daniel Matias - Last Filed: 12/09/17 13:35> Subjective - Date & Time of Evaluation Date of Evaluation: 12/09/17 Time of Evaluation: 09:30 - Subjective Subjective: Patient seen and examined this AM. Overnight patient noted to be agitated requiring ativan and seroquel. Patient noted to be aware of place and self in AM. Patient with limited words while answering questions. Patient has no complaints at time of interview. Objective - Vital Signs/Intake and Output Vital Signs (last 24 hours): Temp Pulse Resp BP Pulse Ox 98.7 F 83 20 108/68 95 12/09/17 12:00 12/09/17 12:00 12/09/17 12:00 12/09/17 12:00 12/09/17 05:37 Intake and Output: 12/09/17 12/09/17 06:59 18:59 Intake Total 300 Balance 300 - Medications Medications: Current Medications Albuterol/Ipratropium (Duoneb 3 Mg/0.5 Mg (3 Ml) Ud) 3 ml IH Q2H PRN PRN Reason: Shortness of Breath Albuterol/Ipratropium (Duoneb 3 Mg/0.5 Mg (3 Ml) Ud) 3 ml IH [id number] [facility] Last Admin: 12/09/17 11:23 Dose: 3 ml Aspirin (Aspirin Chewable) 81 mg PO DAILY [facility] Last Admin: 12/09/17 10:20 Dose: 81 mg Atorvastatin Calcium (Lipitor) 40 mg PO DIN [facility] Last Admin: 12/08/17 17:44 Dose: 40 mg Folic Acid (Folic Acid) 1 mg PO DAILY [facility] Last Admin: 12/09/17 10:20 Dose: 1 mg Insulin Human Regular (Humulin R Low) 0 units SC ACHS [facility] PRN Reason: Protocol Last Admin: 12/09/17 12:29 Dose: 1 units Levetiracetam (Keppra) 750 mg PO Q12 [facility] Last Admin: 12/09/17 10:19 Dose: 750 mg Lorazepam (Ativan) 1 mg IVP Q6H PRN; Protocol PRN Reason: Agitation Last Admin: 12/09/17 07:46 Dose: 1 mg Multivitamins (Thera Tab) 1 tab PO DAILY [facility] Last Admin: 12/09/17 10:20 Dose: 1 tab Nicotine (Nicoderm Cq) 1 patch TD DAILY [facility] Last Admin: 12/09/17 10:20 Dose: 1 patch Ondansetron HCl (Zofran Inj) 4 mg IVP Q4H PRN PRN Reason: Nausea/Vomiting Pantoprazole Sodium (Protonix Ec Tab) 40 mg PO ACB [facility] Last Admin: 12/09/17 08:11 Dose: 40 mg Thiamine HCl (Vitamin B1 Tab) 100 mg PO DAILY [facility] Last Admin: 12/09/17 10:20 Dose: 100 mg Vitamin A (Vitamin A & D Oint Ud Foilpak) 1 ea TOP Q2 PRN PRN Reason: Please use for dry lips - Labs Labs: 12/09/17 11:15 12/08/17 10:50 PT 13.6 SECONDS (9.4-12.5) H 12/02/17 22:45 INR 1.19 (0.93-1.08) H 12/02/17 22:45 APTT 28.5 Seconds (25.1-36.5) 12/04/17 07:00 - Constitutional Appears: No Acute Distress - Head Exam Head Exam: ATRAUMATIC, NORMAL INSPECTION, NORMOCEPHALIC - Eye Exam Eye Exam: EOMI - Respiratory Exam Respiratory Exam: Wheezes (expiratory at anterior chest ), NORMAL BREATHING PATTERN - Cardiovascular Exam Cardiovascular Exam: REGULAR RHYTHM, +S1, +S2 - GI/Abdominal Exam GI & Abdominal Exam: Soft, Normal Bowel Sounds. absent: Guarding, Tenderness - Extremities Exam Extremities Exam: absent: Calf Tenderness, Pedal Edema - Neurological Exam Neurological Exam: Alert, Awake Neuro motor strength exam: Left Upper Extremity: 5, Right Upper Extremity: 5, Left Lower Extremity: 4, Right Lower Extremity: 4 - Psychiatric Exam Additional comments: Confused, slight agitation - Skin Skin Exam: Dry, Warm Assessment and Plan - Assessment and Plan (Free Text) Assessment: 77 year old male with past medical history of alcohol and tobacco abuse presented on 12/03/17 with 2 days of altered mental status. 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 Lipid panel was normal and troponin was negative X1; Tox negative. Patient had another CT Head done, 12/07/17, which was also negative for hemorrhagic transformation. 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 Neurology is following. Plan: Altered Mental Status - Etiology: CVA vs. seizure - Continue SCD and ASA/Lipitor; hold other anticoagulation - Keppra Drip for suspicion of seizure activity - Surgical intervention not indicated at this time (unknown duration of Occluded LICA) - Neurology Consult - continue current medical physical occupational therapies - EEG reported as normal - PT evaluation recommending rehab Chronic Alcohol Abuse - Ativan 1mg Q6 PRN; Thiamine, Folic Acid, MTV, Zofran, Vitamin A - CIWA, Moderate fall, Aspiration, and Seizure precautions; Neurocheck q4; HOB 30 degrees - Cessation education provided Agitation - Likely etiology hospital delirium secondary to lack of sleep v. ETOH etiology - Patient afebrile, absent leukcosytosis, CIWA is 7 at 3 am - Continue to reorient patient - Continue with Ativan 1mg Q6H prn Chronic Tobacco Abuse - Nicotine patch - Cessation education provided History COPD - Duonebs MATT and PRN History DM 2 - ISS Low - ACHS GI/DVT Prophylaxis - Protonix - SCD Case and plan discussed with attending <Darlin Dillard - Last Filed: 12/09/17 14:52> Objective - Vital Signs/Intake and Output Vital Signs (last 24 hours): Temp Pulse Resp BP Pulse Ox 98.7 F 83 20 108/68 95 12/09/17 12:00 12/09/17 12:00 12/09/17 12:00 12/09/17 12:00 12/09/17 05:37 Intake and Output: 12/09/17 12/09/17 06:59 18:59 Intake Total 300 180 Balance 300 180 - Medications Medications: Current Medications Albuterol/Ipratropium (Duoneb 3 Mg/0.5 Mg (3 Ml) Ud) 3 ml IH Q2H PRN PRN Reason: Shortness of Breath Albuterol/Ipratropium (Duoneb 3 Mg/0.5 Mg (3 Ml) Ud) 3 ml IH [id number] [facility] Last Admin: 12/09/17 11:23 Dose: 3 ml Aspirin (Aspirin Chewable) 81 mg PO DAILY [facility] Last Admin: 12/09/17 10:20 Dose: 81 mg Atorvastatin Calcium (Lipitor) 40 mg PO DIN [facility] Last Admin: 12/08/17 17:44 Dose: 40 mg Folic Acid (Folic Acid) 1 mg PO DAILY [facility] Last Admin: 12/09/17 10:20 Dose: 1 mg Insulin Human Regular (Humulin R Low) 0 units SC ACHS [facility] PRN Reason: Protocol Last Admin: 12/09/17 12:29 Dose: 1 units Levetiracetam (Keppra) 750 mg PO Q12 [facility] Last Admin: 12/09/17 10:19 Dose: 750 mg Lorazepam (Ativan) 1 mg IVP Q6H PRN; Protocol PRN Reason: Agitation Last Admin: 12/09/17 07:46 Dose: 1 mg Multivitamins (Thera Tab) 1 tab PO DAILY [facility] Last Admin: 12/09/17 10:20 Dose: 1 tab Nicotine (Nicoderm Cq) 1 patch TD DAILY [facility] Last Admin: 12/09/17 10:20 Dose: 1 patch Ondansetron HCl (Zofran Inj) 4 mg IVP Q4H PRN PRN Reason: Nausea/Vomiting Pantoprazole Sodium (Protonix Ec Tab) 40 mg PO ACB [facility] Last Admin: 12/09/17 08:11 Dose: 40 mg Thiamine HCl (Vitamin B1 Tab) 100 mg PO DAILY [facility] Last Admin: 12/09/17 10:20 Dose: 100 mg Vitamin A (Vitamin A & D Oint Ud Foilpak) 1 ea TOP Q2 PRN PRN Reason: Please use for dry lips - Labs Labs: 12/09/17 11:15 12/08/17 10:50 PT 13.6 SECONDS (9.4-12.5) H 12/02/17 22:45 INR 1.19 (0.93-1.08) H 12/02/17 22:45 APTT 28.5 Seconds (25.1-36.5) 12/04/17 07:00 Attending/Attestation - Attestation I have personally seen and examined this patient.: Yes I have fully participated in the care of the patient.: Yes I have reviewed all pertinent clinical information, including history, physical exam and plan: Yes Notes (Text): 12/09/17 14:50 77 year old male with past medical history of COPD, diabetes and alcohol abuse who presented with altered mental status. Initial CT head showed chronic changes; no acute infarct or bleed. MRI brain and repeat CT head were reviewed as above. He is being followed by neurology. He is on aspirin and statin. He is also on keppra. CTA head/neck showed left ICA occlusion. Vascular surgery evaluation was appreciated; no surgical intervention planned. Patient was counselled on smoking and alcohol cessation. Continue with physical therapy; currently recommending rehab. Will follow up with manager rn case / psychologist social. is at bedside and questions were answered. Darlin Dillard MD Hospitalist.
--- NOTE | 2017-12-09 15:50 | CP.PCM.DIS ---
<MundohasmukhDaniel zimmer - Last Filed: 12/09/17 15:46> Provider - Provider Date of Admission: 12/02/17 23:40 Attending physician: Darlin Dillard MD Primary care physician: Erum Perez MD Consults: ID: Dr. Abelino Lester Neurology: Dr. Rom [place] V[facility] Surgery: Dr. Anahy Salmeron Time Spent in preparation of Discharge (in minutes): 45 Diagnosis - Discharge Diagnosis (1) Alcohol withdrawal Status: Acute (2) Altered mental status Status: Acute (3) Ischemic stroke Status: Acute Hospital Course - Lab Results Lab Results: Micro Results 12/03/17 02:29 Urine Urine Culture - Final No Growth (<1,000 CFU/ML) Most Recent Lab Values WBC 10.1 10^3/ul (4.5-11.0) 12/09/17 11:15 RBC 5.29 10^6/uL (3.5-6.1) 12/09/17 11:15 Hgb 14.9 g/dL (14.0-18.0) 12/09/17 11:15 Hct 44.2 % (42.0-52.0) 12/09/17 11:15 MCV 83.6 fl (80.0-105.0) 12/09/17 11:15 MCH 28.2 pg (25.0-35.0) 12/09/17 11:15 MCHC 33.7 g/dl (31.0-37.0) 12/09/17 11:15 RDW 14.6 % (11.5-14.5) H 12/09/17 11:15 Plt Count 286 10^3/uL (120.0-450.0) 12/09/17 11:15 MPV 9.8 fl (7.0-11.0) 12/09/17 11:15 Gran % 71.3 % (50.0-68.0) H 12/09/17 11:15 Lymph % (Auto) 14.1 % (22.0-35.0) L 12/09/17 11:15 [place] % (Auto) 13.1 % (1.0-6.0) H 12/09/17 11:15 Eos % (Auto) 1.0 % (1.5-5.0) L 12/09/17 11:15 Baso % (Auto) 0.5 % (0.0-3.0) 12/09/17 11:15 Gran # 7.21 (1.4-6.5) H 12/09/17 11:15 Lymph # (Auto) 1.4 (1.2-3.4) 12/09/17 11:15 [place] # (Auto) 1.3 (0.1-0.6) H 12/09/17 11:15 Eos # (Auto) 0.1 (0.0-0.7) 12/09/17 11:15 Baso # (Auto) 0.05 K/mm3 (0.0-2.0) 12/09/17 11:15 PT 13.6 SECONDS (9.4-12.5) H 12/02/17 22:45 INR 1.19 (0.93-1.08) H 12/02/17 22:45 APTT 28.5 Seconds (25.1-36.5) 12/04/17 07:00 pO2 143 mm/Hg (30-55) H 12/02/17 22:06 VBG pH 7.40 (7.32-7.43) 12/02/17 22:06 VBG pCO2 41.0 (40-60) 12/02/17 22:06 VBG HCO3 25.4 mmol/l (21-28) 12/02/17 22:06 VBG Total CO2 26.7 mmol.L (22-28) 12/02/17 22:06 VBG O2 Sat (Calc) 99.2 % (40-65) H 12/02/17 22:06 VBG Base Excess 0.5 mmol/L (0.0-2.0) 12/02/17 22:06 VBG Potassium 3.8 mmol/L (3.6-5.2) 12/02/17 22:06 Sodium 135.0 mmol/L (132-148) 12/02/17 22:06 Chloride 101.0 mmol/L (98-107) 12/02/17 22:06 Glucose 160 mg/dl (75-110) H 12/02/17 22:06 Lactate 1.2 mmol/L (0.7-2.1) 12/02/17 22:06 FiO2 21.0 % 12/02/17 22:06 Sodium 144 mmol/L (132-148) 12/08/17 10:50 Potassium 3.7 mmol/L (3.6-5.0) 12/08/17 10:50 Chloride 106 mmol/L (98-107) 12/08/17 10:50 Carbon Dioxide 28 mmol/L (21-33) 12/08/17 10:50 Anion Gap 13 (10-20) 12/08/17 10:50 BUN 20 mg/dL (7-21) 12/08/17 10:50 Creatinine 0.9 mg/dl (0.8-1.5) 12/08/17 10:50 Est GFR ( Amer) > 60 12/08/17 10:50 Est GFR (Non-Af Amer) > 60 12/08/17 10:50 POC Glucose (mg/dL) 158 mg/dL (65-110) H 12/09/17 11:35 Random Glucose 198 mg/dL (70-110) H 12/08/17 10:50 Hemoglobin A1c 6.7 % (4.2-6.5) H 12/02/17 22:06 Calcium 9.6 mg/dL (8.4-10.5) 12/08/17 10:50 Phosphorus 3.4 mg/dL (2.5-4.5) 12/08/17 10:50 Magnesium 2.0 mg/dL (1.7-2.2) 12/08/17 10:50 Total Bilirubin 0.3 mg/dL (0.2-1.3) 12/08/17 10:50 AST 29 U/L (17-59) 12/08/17 10:50 ALT 34 U/L (7-56) 12/08/17 10:50 Alkaline Phosphatase 50 U/L (38-126) 12/08/17 10:50 Ammonia < 9 umol/L (9-33) L 12/02/17 22:06 Lactate Dehydrogenase 449 U/L (333-699) 12/02/17 22:06 Total Creatine Kinase 90 U/L (35-230) 12/02/17 22:06 Troponin I 0.01 ng/mL 12/02/17 22:06 NT-Pro-B Natriuret Pep 495 pg/mL (0-450) H 12/03/17 06:30 Total Protein 7.1 g/dL (5.8-8.3) 12/08/17 10:50 Albumin 3.7 g/dL (3.0-4.8) 12/08/17 10:50 Globulin 3.4 gm/dL 12/08/17 10:50 Albumin/Globulin Ratio 1.1 (1.1-1.8) 12/08/17 10:50 Triglycerides 71 mg/dL (35-160) 12/03/17 08:00 Cholesterol 118 mg/dL (130-200) L 12/03/17 08:00 LDL Cholesterol Direct 44 mg/dL (0-129) 12/03/17 08:00 HDL Cholesterol 48 mg/dL (29-60) 12/03/17 08:00 Procalcitonin < 0.05 NG/ML (0.19-0.49) L 12/02/17 22:06 Venous Blood Potassium 3.8 mmol/L (3.6-5.2) 12/02/17 22:06 Urine Color Yellow (YELLOW) 12/03/17 02:19 Urine Appearance Sl cloudy (CLEAR) 12/03/17 02:19 Urine pH 6.0 (4.7-8.0) 12/03/17 02:19 Ur Specific [place] 1.020 (1.005-1.035) 12/03/17 02:19 Urine Protein 30 mg/dL (<30 mg/dL) H 12/03/17 02:19 Urine Glucose (UA) Negative mg/dL (NEGATIVE) 12/03/17 02:19 Urine Ketones 15 mg/dL (NEGATIVE) H 12/03/17 02:19 Urine Blood Trace-intact (NEGATIVE) H 12/03/17 02:19 Urine Nitrate Negative (NEGATIVE) 12/03/17 02:19 Urine Bilirubin Negative (NEGATIVE) 12/03/17 02:19 Urine Urobilinogen 0.2 E.U./dL (<1 E.U./dL) 12/03/17 02:19 Ur Leukocyte Esterase Negative Jennifer/uL (NEGATIVE) 12/03/17 02:19 Urine RBC 0 - 2 /hpf (0-2) 12/03/17 02:19 Urine WBC Negative /hpf (0-6) 12/03/17 02:19 Ur Epithelial Cells 4 - 5 /hpf (0-5) 12/03/17 02:19 Urine Bacteria Few (NEG) 12/03/17 02:19 Urine Other Mucus 12/03/17 02:19 Salicylates < 1 mg/dL (2.0-20.0) L 12/02/17 22:06 Urine Opiates Screen Negative (NEGATIVE) 12/03/17 02:19 Urine Methadone Screen Negative (NEGATIVE) 12/03/17 02:19 Acetaminophen < 10.0 ug/ml (10.0-20.0) L 12/02/17 22:06 Ur Barbiturates Screen Negative (NEGATIVE) 12/03/17 02:19 Ur Phencyclidine Scrn Negative (NEGATIVE) 12/03/17 02:19 Ur Amphetamines Screen Negative (NEGATIVE) 12/03/17 02:19 U Benzodiazepines Scrn Negative (NEGATIVE) 12/03/17 02:19 U Oth Cocaine Metabols Negative (NEGATIVE) 12/03/17 02:19 U Cannabinoids Screen Negative (NEGATIVE) 12/03/17 02:19 Alcohol, Quantitative < 10 mg/dL (0-10) 12/02/17 22:06 - Hospital Course Hospital Course: 77 year old male with a past medical history significant for COPD, NIDDM2, alcohol abuse and tobacco abuse who presents with two days of AMS. Patient was evaluated in ED, Head CT showed chronic changes, generalized cerebral atrophy and periventricular chronic microvascular changes with chronic appearing right frontal lobe subcortical encephalomalacia changes stable since 06/02/2017 without interval hemorrhage or mass effect appreciated, CT head/neck showed left ICA occlusion. Vascular surgery was consulted and surgical intervention was unavailable due to 100% occlusion. MRI of the brain was preformed showing multifocal thromboembolic infarct from right parietal, bilateral occipital and bilateral frontal and trace hemorrhage in the occiput. Neurology had been consulted and evaluated the patient and placed patient on Keppra for possible seizure etiology and continued aspirin with holding of anticoagulation. Repeat Head CT did not show acute hemorrhage. No further intervention per neurology was preformed. EEG was preformed and interpreted as normal. Patient was placed on antibiotics for possible pneumonia, however later discontinued due to negative chest x-ray and negative procalcitonin. Patient was noted to have agitation during stay, primarily at nights. Patient was given ativan and reoriented to situation. Patient appeared to be at baseline at time of discharge. Patient was evaluated by physical therapy with recommendation for rehab. Patient was accepted and transferred to facility. Patient was joined by his at bedside at time of discharge. Discharge planning, medication reconciliation, and follow up were discussed with patient and family. For full details please see patient chart. - Date & Time of H&P Date of H&P: 12/03/17 Time of H&P: 00:47 Discharge Exam - Head Exam Head Exam: ATRAUMATIC, NORMAL INSPECTION, NORMOCEPHALIC - Eye Exam Eye Exam: PERRL. absent: Conjunctival injection - Respiratory Exam Respiratory Exam: Clear to PA & Lateral, NORMAL BREATHING PATTERN - Cardiovascular Exam Cardiovascular Exam: REGULAR RHYTHM, +S1, +S2 - Extremities Exam Extremities exam: pedal pulses present - Neurological Exam Neurological exam: Alert Additional comments: Oriented to place and self Strength 4/5 b/l LE Strength 5/5 b/l UE able to follow simple commands, move extremities past midline - Psychiatric Exam Psychiatric exam: Normal Mood - Skin Skin Exam: Dry, Warm Discharge Plan - Follow Up Plan Condition: GUARDED Disposition: REHAB FACILITY/REHAB UNIT Instructions: Alcohol Withdrawal (DC), Altered Mental Status (GEN) Additional Instructions: Continue with physical therapy as recommended Follow up with primary care physician upon discharge from acute rehab Follow up with neurology upon discharge from acute rehab Take medications as prescribed to you Return to ED if worsening mentation, paralysis, acute weakness, chest pain, unrelenting fever Referrals: Erum Buck MD [Primary Care Provider] - <Darlin Dillard - Last Filed: 12/09/17 17:36> Provider - Provider Date of Admission: 12/02/17 23:40 Attending physician: Dralin Dillard MD Primary care physician: Erum Perez MD Hospital Course - Lab Results Lab Results: Micro Results 12/03/17 02:29 Urine Urine Culture - Final No Growth (<1,000 CFU/ML) Most Recent Lab Values WBC 10.1 10^3/ul (4.5-11.0) 12/09/17 11:15 RBC 5.29 10^6/uL (3.5-6.1) 12/09/17 11:15 Hgb 14.9 g/dL (14.0-18.0) 12/09/17 11:15 Hct 44.2 % (42.0-52.0) 12/09/17 11:15 MCV 83.6 fl (80.0-105.0) 12/09/17 11:15 MCH 28.2 pg (25.0-35.0) 12/09/17 11:15 MCHC 33.7 g/dl (31.0-37.0) 12/09/17 11:15 RDW 14.6 % (11.5-14.5) H 12/09/17 11:15 Plt Count 286 10^3/uL (120.0-450.0) 12/09/17 11:15 MPV 9.8 fl (7.0-11.0) 12/09/17 11:15 Gran % 71.3 % (50.0-68.0) H 12/09/17 11:15 Lymph % (Auto) 14.1 % (22.0-35.0) L 12/09/17 11:15 [place] % (Auto) 13.1 % (1.0-6.0) H 12/09/17 11:15 Eos % (Auto) 1.0 % (1.5-5.0) L 12/09/17 11:15 Baso % (Auto) 0.5 % (0.0-3.0) 12/09/17 11:15 Gran # 7.21 (1.4-6.5) H 12/09/17 11:15 Lymph # (Auto) 1.4 (1.2-3.4) 12/09/17 11:15 [place] # (Auto) 1.3 (0.1-0.6) H 12/09/17 11:15 Eos # (Auto) 0.1 (0.0-0.7) 12/09/17 11:15 Baso # (Auto) 0.05 K/mm3 (0.0-2.0) 12/09/17 11:15 PT 13.6 SECONDS (9.4-12.5) H 12/02/17 22:45 INR 1.19 (0.93-1.08) H 12/02/17 22:45 APTT 28.5 Seconds (25.1-36.5) 12/04/17 07:00 pO2 143 mm/Hg (30-55) H 12/02/17 22:06 VBG pH 7.40 (7.32-7.43) 12/02/17 22:06 VBG pCO2 41.0 (40-60) 12/02/17 22:06 VBG HCO3 25.4 mmol/l (21-28) 12/02/17 22:06 VBG Total CO2 26.7 mmol.L (22-28) 12/02/17 22:06 VBG O2 Sat (Calc) 99.2 % (40-65) H 12/02/17 22:06 VBG Base Excess 0.5 mmol/L (0.0-2.0) 12/02/17 22:06 VBG Potassium 3.8 mmol/L (3.6-5.2) 12/02/17 22:06 Sodium 135.0 mmol/L (132-148) 12/02/17 22:06 Chloride 101.0 mmol/L (98-107) 12/02/17 22:06 Glucose 160 mg/dl (75-110) H 12/02/17 22:06 Lactate 1.2 mmol/L (0.7-2.1) 12/02/17 22:06 FiO2 21.0 % 12/02/17 22:06 Sodium 144 mmol/L (132-148) 12/08/17 10:50 Potassium 3.7 mmol/L (3.6-5.0) 12/08/17 10:50 Chloride 106 mmol/L (98-107) 12/08/17 10:50 Carbon Dioxide 28 mmol/L (21-33) 12/08/17 10:50 Anion Gap 13 (10-20) 12/08/17 10:50 BUN 20 mg/dL (7-21) 12/08/17 10:50 Creatinine 0.9 mg/dl (0.8-1.5) 12/08/17 10:50 Est GFR ( Amer) > 60 12/08/17 10:50 Est GFR (Non-Af Amer) > 60 12/08/17 10:50 POC Glucose (mg/dL) 158 mg/dL (65-110) H 12/09/17 11:35 Random Glucose 198 mg/dL (70-110) H 12/08/17 10:50 Hemoglobin A1c 6.7 % (4.2-6.5) H 12/02/17 22:06 Calcium 9.6 mg/dL (8.4-10.5) 12/08/17 10:50 Phosphorus 3.4 mg/dL (2.5-4.5) 12/08/17 10:50 Magnesium 2.0 mg/dL (1.7-2.2) 12/08/17 10:50 Total Bilirubin 0.3 mg/dL (0.2-1.3) 12/08/17 10:50 AST 29 U/L (17-59) 12/08/17 10:50 ALT 34 U/L (7-56) 12/08/17 10:50 Alkaline Phosphatase 50 U/L (38-126) 12/08/17 10:50 Ammonia < 9 umol/L (9-33) L 12/02/17 22:06 Lactate Dehydrogenase 449 U/L (333-699) 12/02/17 22:06 Total Creatine Kinase 90 U/L (35-230) 12/02/17 22:06 Troponin I 0.01 ng/mL 12/02/17 22:06 NT-Pro-B Natriuret Pep 495 pg/mL (0-450) H 12/03/17 06:30 Total Protein 7.1 g/dL (5.8-8.3) 12/08/17 10:50 Albumin 3.7 g/dL (3.0-4.8) 12/08/17 10:50 Globulin 3.4 gm/dL 12/08/17 10:50 Albumin/Globulin Ratio 1.1 (1.1-1.8) 12/08/17 10:50 Triglycerides 71 mg/dL (35-160) 12/03/17 08:00 Cholesterol 118 mg/dL (130-200) L 12/03/17 08:00 LDL Cholesterol Direct 44 mg/dL (0-129) 12/03/17 08:00 HDL Cholesterol 48 mg/dL (29-60) 12/03/17 08:00 Procalcitonin < 0.05 NG/ML (0.19-0.49) L 12/02/17 22:06 Venous Blood Potassium 3.8 mmol/L (3.6-5.2) 12/02/17 22:06 Urine Color Yellow (YELLOW) 12/03/17 02:19 Urine Appearance Sl cloudy (CLEAR) 12/03/17 02:19 Urine pH 6.0 (4.7-8.0) 12/03/17 02:19 Ur Specific [place] 1.020 (1.005-1.035) 12/03/17 02:19 Urine Protein 30 mg/dL (<30 mg/dL) H 12/03/17 02:19 Urine Glucose (UA) Negative mg/dL (NEGATIVE) 12/03/17 02:19 Urine Ketones 15 mg/dL (NEGATIVE) H 12/03/17 02:19 Urine Blood Trace-intact (NEGATIVE) H 12/03/17 02:19 Urine Nitrate Negative (NEGATIVE) 12/03/17 02:19 Urine Bilirubin Negative (NEGATIVE) 12/03/17 02:19 Urine Urobilinogen 0.2 E.U./dL (<1 E.U./dL) 12/03/17 02:19 Ur Leukocyte Esterase Negative Jennifer/uL (NEGATIVE) 12/03/17 02:19 Urine RBC 0 - 2 /hpf (0-2) 12/03/17 02:19 Urine WBC Negative /hpf (0-6) 12/03/17 02:19 Ur Epithelial Cells 4 - 5 /hpf (0-5) 12/03/17 02:19 Urine Bacteria Few (NEG) 12/03/17 02:19 Urine Other Mucus 12/03/17 02:19 Salicylates < 1 mg/dL (2.0-20.0) L 12/02/17 22:06 Urine Opiates Screen Negative (NEGATIVE) 12/03/17 02:19 Urine Methadone Screen Negative (NEGATIVE) 12/03/17 02:19 Acetaminophen < 10.0 ug/ml (10.0-20.0) L 12/02/17 22:06 Ur Barbiturates Screen Negative (NEGATIVE) 12/03/17 02:19 Ur Phencyclidine Scrn Negative (NEGATIVE) 12/03/17 02:19 Ur Amphetamines Screen Negative (NEGATIVE) 12/03/17 02:19 U Benzodiazepines Scrn Negative (NEGATIVE) 12/03/17 02:19 U Oth Cocaine Metabols Negative (NEGATIVE) 12/03/17 02:19 U Cannabinoids Screen Negative (NEGATIVE) 12/03/17 02:19 Alcohol, Quantitative < 10 mg/dL (0-10) 12/02/17 22:06 Attending/Attestation - Attestation I have personally seen and examined this patient.: Yes I have fully participated in the care of the patient.: Yes I have reviewed all pertinent clinical information, including history, physical exam and plan: Yes Notes (Text): 12/09/17 17:34 77 year old male with past medical history of COPD, diabetes and alcohol abuse who presented with altered mental status. Initial CT head showed chronic changes; no acute infarct or bleed. MRI brain and repeat CT head were reviewed as above. He was being followed by neurology. He was on aspirin and statin and also started on keppra. CTA head/neck showed left ICA occlusion. He was seen by vascular surgery and no surgical intervention planned. Patient was counselled on smoking and alcohol cessation. He was seen by PT who recommended acute rehab. Patient is discharged to acute rehab. Follow up with pmd and neurology. Counselled on alcohol abstinence. Darlin Dillard MD Hospitalist.
[2017-12-09 15:59] VITALS: PULSE 89
--- NOTE | 2017-12-09 18:53 | CP.PCM.PN ---
Subjective - Date & Time of Evaluation Date of Evaluation: 12/09/17 Time of Evaluation: 16:45 - Subjective Subjective: Infectious Disease Follow Up: December 09, 2017 Mr. Helms is a 77 year old male with a past medical history significant for COPD, NIDDM2, alcohol abuse and tobacco abuse who presents with two days of AMS. Patient at bedside to provide HPI information. Patient oriented to person, town and year. Patients reports that patient at baseline communicates verbally, is independent with ADL's and ambulates without assistance. For the past two days, patient has been sitting in his chair staring off into the distance without the television on, which is unusual for him. She reports that brought him in today because she noticed that he urinated on the couch. Patients also endorses that patient has had no complaints immediately prior to or during this episode. While he usually drinks alcohol daily, patient has not had anything to drink for the past three days. She also denies any recent medication changes. Patient more cooperative with questioning today. History obtained from the chart. Family not in the room when I examined the patient. He is starting to ambulate. Patient no further episodes of confusion. Patient remains on Keppra. Patient is awake and alert and orientated. He has been more ambulatory. Does not like to converse. Possible discharge today. Objective - Vital Signs/Intake and Output Vital Signs (last 24 hours): Temp Pulse Resp BP Pulse Ox 98.7 F 89 20 108/68 95 12/09/17 12:00 12/09/17 14:00 12/09/17 12:00 12/09/17 12:00 12/09/17 05:37 Intake and Output: 12/09/17 12/09/17 06:59 18:59 Intake Total 300 420 Balance 300 420 - Medications Medications: Current Medications Albuterol/Ipratropium (Duoneb 3 Mg/0.5 Mg (3 Ml) Ud) 3 ml IH Q2H PRN PRN Reason: Shortness of Breath Albuterol/Ipratropium (Duoneb 3 Mg/0.5 Mg (3 Ml) Ud) 3 ml IH [id number] [facility] Last Admin: 12/09/17 15:40 Dose: 3 ml Aspirin (Aspirin Chewable) 81 mg PO DAILY [facility] Last Admin: 12/09/17 10:20 Dose: 81 mg Atorvastatin Calcium (Lipitor) 40 mg PO DIN [facility] Last Admin: 12/09/17 17:19 Dose: 40 mg Folic Acid (Folic Acid) 1 mg PO DAILY [facility] Last Admin: 12/09/17 10:20 Dose: 1 mg Insulin Human Regular (Humulin R Low) 0 units SC ACHS MATT PRN Reason: Protocol Last Admin: 12/09/17 12:29 Dose: 1 units Levetiracetam (Keppra) 750 mg PO Q12 [facility] Last Admin: 12/09/17 10:19 Dose: 750 mg Lorazepam (Ativan) 1 mg IVP Q6H PRN; Protocol PRN Reason: Agitation Last Admin: 12/09/17 07:46 Dose: 1 mg Multivitamins (Thera Tab) 1 tab PO DAILY [facility] Last Admin: 12/09/17 10:20 Dose: 1 tab Nicotine (Nicoderm Cq) 1 patch TD DAILY [facility] Last Admin: 12/09/17 10:20 Dose: 1 patch Ondansetron HCl (Zofran Inj) 4 mg IVP Q4H PRN PRN Reason: Nausea/Vomiting Pantoprazole Sodium (Protonix Ec Tab) 40 mg PO ACB [facility] Last Admin: 12/09/17 08:11 Dose: 40 mg Thiamine HCl (Vitamin B1 Tab) 100 mg PO DAILY [facility] Last Admin: 12/09/17 10:20 Dose: 100 mg Vitamin A (Vitamin A & D Oint Ud Foilpak) 1 ea TOP Q2 PRN PRN Reason: Please use for dry lips - Labs Labs: 12/09/17 11:15 12/08/17 10:50 PT 13.6 SECONDS (9.4-12.5) H 12/02/17 22:45 INR 1.19 (0.93-1.08) H 12/02/17 22:45 APTT 28.5 Seconds (25.1-36.5) 12/04/17 07:00 - Constitutional Appears: Non-toxic, No Acute Distress, Chronically Ill - Head Exam Head Exam: ATRAUMATIC, NORMOCEPHALIC - Eye Exam Eye Exam: EOMI, PERRL Pupil Exam: NORMAL ACCOMODATION, PERRL - ENT Exam ENT Exam: Mucous Membranes Moist, Normal External Ear Exam, TM's Normal Bilaterally - Neck Exam Neck Exam: Full ROM, Normal Inspection - Respiratory Exam Respiratory Exam: Clear to Ausculation Bilateral, NORMAL BREATHING PATTERN. absent: Rales, Rhonchi, Wheezes - Cardiovascular Exam Cardiovascular Exam: REGULAR RHYTHM, RRR, +S1, +S2 - GI/Abdominal Exam GI & Abdominal Exam: Soft, Normal Bowel Sounds. absent: Distended, Tenderness - Extremities Exam Extremities Exam: Full ROM, Normal Inspection - Neurological Exam Neurological Exam: Alert, Awake, CN II-XII Intact, Oriented x3 - Psychiatric Exam Psychiatric exam: Normal Affect, Normal Mood - Skin Skin Exam: Intact, Normal Color Assessment and Plan - Assessment and Plan (Free Text) Assessment: 77 yo male with COPD, NIDDM2, alcohol abuse and tobacco abuse who presents with two days of AMS. 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 Chest X-ray negative. Awaiting MRI pending reading. Starting on Ceftriaxone and Azithromycin. Procalcitonin negative. Cultures negative. Supportive care. Patient awake and alert with occasional episode of confusion otherwise he is AAO x 3 now. Ambulating again. No evidence of pneumonia. Hard stop of antibiotics by day 7 but can consider stopping antibiotics on Day 5 of administration. Off antibiotics now. No new issues. Possible discharge today. Thank you for allowing me to participate in the care of the patient, we will follow with you.
== END 2017-12-09 18:30 | DRG 65 ==
LOC: ED 20:41 → ERH 23:40 → 2RSO 12-03 03:09
PROVIDERS: ADMIT Internal Medicine; ATTEND Internal Medicine
PROC: 3E0F7GC Introduction of Other Therapeutic Substance into Respiratory Tract, Via Natural or Artificial Opening (ICD-10-PCS; principal; 2017-12-03)
DX: I63.9 Cerebral infarction, unspecified (principal); F10.239 Alcohol dependence with withdrawal, unspecified; R56.9 Unspecified convulsions; I10 Essential (primary) hypertension; J44.9 Chronic obstructive pulmonary disease, unspecified; E78.00 Pure hypercholesterolemia, unspecified; I65.22 Occlusion and stenosis of left carotid artery; E11.9 Type 2 diabetes mellitus without complications; G93.89 Other specified disorders of brain; R32 Unspecified urinary incontinence; F17.210 Nicotine dependence, cigarettes, uncomplicated; Z79.84 Long term (current) use of oral hypoglycemic drugs

== ENCOUNTER 2018-08-02 16:52 | Emergency (ER) | payer MEDICARE, OTHER ==
[2018-08-02 16:52] VITALS: BMI 25.0
--- NOTE | 2018-08-02 17:51 | ED PDOC ---
Arrival/HPI - General Chief Complaint: Lower Extremity Problem/Injury Time Seen by Provider: 08/02/18 17:36 Historian: Patient - History of Present Illness Narrative History of Present Illness (Text): 08/02/18 17:48 A 77 year old male, whose past medical history includes several CVAs, presents to the emergency department complaining of riight leg pain. Patient reports he was chased by a dog and resulted in injuring his right leg. Patient denies any numbness/weakness, chest pain, shortness of breath, or any other complaints at this time. No PMD Past Medical History - Provider Review Nursing Documentation Reviewed: Yes - Infectious Disease Hx of Infectious Diseases: None - Tetanus Immunization Tetanus Immunization: Unknown - Cardiac Hx Cardiac Disorders: Yes Hx Hypertension: Yes - Pulmonary Hx Chronic Obstructive Pulmonary Disease (COPD): Yes - Neurological Hx Neurological Disorder: No - HEENT Hx HEENT Disorder: No - Renal Hx Renal Disorder: No - Endocrine/Metabolic Hx Diabetes Mellitus Type 2: Yes - Hematological/Oncological Hx Blood Disorders: No - Integumentary Hx Dermatological Disorder: No - Musculoskeletal/Rheumatological Hx Musculoskeletal Disorders: No Hx Falls: No (pt denies) - Gastrointestinal Hx Gastrointestinal Disorders: No - Genitourinary/Gynecological Hx Genitourinary Disorders: Yes Hx Incontinence: Yes - Psychiatric Hx Psychophysiologic Disorder: Yes Hx Substance Use: No (denies) Other/Comment: Alcohol use (4 beers and 5 shots of bourdon daily) - Past Surgical History Past Surgical History: No Previous - Anesthesia Hx Anesthesia: No Hx Anesthesia Reactions: No Hx Malignant Hyperthermia: No - Suicidal Assessment Feels Threatened In Home Enviroment: No Family/Social History - Physician Review Nursing Documentation Reviewed: Yes Family/Social History: No Known Family HX Smoking Status: Unknown If Ever Smoked Hx Alcohol Use: Yes (4 beers and 5 shots of bourdon daily) Hx Substance Use: No (denies) Hx Substance Use Treatment: No Allergies/Home Meds Allergies/Adverse Reactions: Allergies No Known Allergies Allergy (Verified 12/02/17 20:47) Home Medications: Home Meds Medication Instructions Recorded Confirmed Albuterol HFA [Ventolin HFA 90 1 puff INH PRN PRN 12/02/17 12/02/17 mcg/actuation (8 g)] Metoprolol Tartrate [Lopressor] 25 mg PO DAILY 12/02/17 12/02/17 Review of Systems - Physician Review All systems were reviewed & negative as marked: Yes - Review of Systems Musculoskeletal: Other (right leg pain) Neurological: absent: Other (no numbness/weakness) Physical Exam - Systems Exam Head: Present: Atraumatic, Normocephalic Pupils: Present: PERRL Extroacular Muscles: Present: EOMI Conjunctiva: Present: Normal Mouth: Present: Moist Mucous Membranes Neck: Present: Normal Range of Motion Respiratory/Chest: Present: Clear to Auscultation, Good Air Exchange. No: Respiratory Distress, Accessory Muscle Use Cardiovascular: Present: Regular Rate and Rhythm, Normal S1, S2. No: Murmurs Abdomen: No: Tenderness, Distention, Peritoneal Signs Back: Present: Normal Inspection Upper Extremity: Present: Normal Inspection. No: Cyanosis, Edema Lower Extremity: Present: NORMAL PULSES (distal pulses), Neurovascularly Intact. No: Normal ROM (right knee decreased ROM due to right leg pain.) Neurological: Present: GCS=15, CN II-XII Intact, Speech Normal Skin: Present: Warm, Dry, Normal Color. No: Rashes Psychiatric: Present: Alert, Oriented x 3, Normal Insight, Normal Concentration Medical Decision Making ED Course and Treatment: 08/02/18 17:51 Impression: 77 year old male with right leg pain s/p run and fall. Differential Diagnosis included but are not limited to: Right Knee pain rule out Fracture vs. Dislocation Plan: -- Right Knee X-ray -- Motrin -- Reassess and disposition Progress Notes: The pt is feeling bettter and knee x-ray shows no fracture or dislocation. Pt will follow up with Dr Javier in a week. - Scribe Statement The provider has reviewed the documentation as recorded by the Bonifacio Bailon Provider Scribe Attestation: All medical record entries made by the Tavaresibradha were at my direction and personally dictated by me. I have reviewed the chart and agree that the record accurately reflects my personal performance of the history, physical exam, medical decision making, and the department course for this patient. I have also personally directed, reviewed, and agree with the discharge instructions and disposition. Disposition/Present on Arrival - Present on Arrival Any Indicators Present on Arrival: No History of DVT/PE: No History of Uncontrolled Diabetes: No Urinary Catheter: No History of Decub. Ulcer: No History Surgical Site Infection Following: None - Disposition Have Diagnosis and Disposition been Completed?: Yes Diagnosis: Knee pain, right, Knee sprain Disposition: HOME/ ROUTINE Disposition Time: 19:47 Condition: GOOD Discharge Instructions (ExitCare): Knee Sprain (DC) Additional Instructions: Follow up with Dr Javier and take motrin for pain. Prescriptions: Ibuprofen [Motrin] 600 mg PO Q6 #20 tab Referrals: Abelino Javier III, MD [Medical Doctor] - Follow up with primary Forms: [employer] (Brazilian)
[2018-08-02 18:38] VITALS: TEMP 98.4
[2018-08-02 19:44] VITALS: BP 110/65; PULSE 98; RESP 18; O2SAT 97
--- NOTE | 2018-08-03 08:09 | RAD ---
Date of service: 08/02/2018 PROCEDURE: Right Knee Radiographs. HISTORY: R knee pain COMPARISON: None. FINDINGS: BONES: No acute displaced fractures nor dislocations. JOINTS: The joint spaces relatively preserved with no significant osteoarthritis. JOINT EFFUSION: Small suprapatellar joint effusion present. OTHER FINDINGS: Vascular calcifications are also noted IMPRESSION: No acute fractures. Small suprapatellar joint effusion.
== END 2018-08-02 19:48 | disposition home or self-care (01) ==
LOC: ED 16:52
DX: S83.91XA Sprain of unspecified site of right knee, initial encounter (principal); X58.XXXA Exposure to other specified factors, initial encounter; M25.561 Pain in right knee; E11.9 Type 2 diabetes mellitus without complications; I10 Essential (primary) hypertension; J44.9 Chronic obstructive pulmonary disease, unspecified; Z86.73 Personal history of transient ischemic attack (TIA), and cerebral infarction without residual deficits

== ENCOUNTER 2018-10-09 12:13 | Inpatient (IN) | payer MEDICARE, OTHER ==
[2018-10-09 12:20] VITALS: BMI 22.2
[2018-10-09 13:00] LABS: BASO # 0.04 K/mm3 (0.0-2.0); BASO % 0.2 % (0.0-3.0); EOS # 0.2 (0.0-0.7); EOS % 1.4 % (1.5-5.0); HEMOGLOBIN 14.1 g/dL (14.0-18.0); LYMPH # 1.7 (1.2-3.4); LYMPH % 10.4 % (22.0-35.0); MEAN CELL VOLUME 83.8 fl (80.0-105.0); MEAN CORPUSCULAR HEMOGLOBIN 26.9 pg (25.0-35.0); MEAN CORPUSCULAR HGB CONC 32.1 g/dl (31.0-37.0); MEAN PLATELET VOLUME 9.9 fl (7.0-11.0); MONO % 12.5 % (1.0-6.0); RBC 5.24 10^6/uL (3.5-6.1); RED CELL DISTRIBUTION WIDTH 14.6 % (11.5-14.5)
[2018-10-09 13:05] LABS: INR 1.31; PARTIAL THROMBOPLASTIN TIME 34.4 Seconds (26.9-38.3); PROTHROMBIN TIME 14.8 SECONDS (9.4-12.5)
[2018-10-09 13:06] LABS: ALB/GLOB RATIO 1.1 (1.1-1.8); ALBUMIN 4.3 g/dL (3.0-4.8); ALT/SGPT 16 U/L (7-56); AST/SGOT 28 U/L (17-59); BLOOD UREA NITROGEN 33 mg/dL (7-21); CALCIUM 9.7 mg/dL (8.4-10.5); GFR NON-AFRICAN AMERICAN 42
[2018-10-09 13:16] LABS: TROPONIN I < 0.01 ng/mL
--- NOTE | 2018-10-09 13:27 | CT ---
Date of service: 10/09/2018 PROCEDURE: CT HEAD WITHOUT CONTRAST. HISTORY: ams COMPARISON: 12/07/2017 TECHNIQUE: Axial computed tomography images were obtained through the head/brain without intravenous contrast. Radiation dose: Total exam DLP = 986.99 mGy-cm. This CT exam was performed using one or more of the following dose reduction techniques: Automated exposure control, adjustment of the mA and/or kV according to patient size, and/or use of iterative reconstruction technique. FINDINGS: HEMORRHAGE: No intracranial hemorrhage. BRAIN: No mass effect or edema. There is encephalomalacia in the right posterior frontal and parietal lobe. Severe microvascular changes are seen in the periventricular white matter. Bilateral occipital lobe encephalomalacia. No acute findings VENTRICLES: Unremarkable. No hydrocephalus. CALVARIUM: Unremarkable. PARANASAL SINUSES: Unremarkable as visualized. No significant inflammatory changes. MASTOID AIR CELLS: Unremarkable as visualized. No inflammatory changes. OTHER FINDINGS: None. IMPRESSION: No acute intracranial findings
--- NOTE | 2018-10-09 13:30 | ED PDOC ---
Arrival/HPI - General Chief Complaint: Weakness/Neurological Deficit Time Seen by Provider: 10/09/18 12:29 Historian: Patient, Spouse - History of Present Illness Narrative History of Present Illness (Text): 10/09/18 13:26 78 year old male, whose past medical history includes COPD, NIDDM2, alcohol abuse and tobacco abuse, CVA, presents to the emergency department accompanied by spouse presents for evaluation sent in by PMD Dr. Perez. As per spouse, patient has been complaining of throat discomfort and has been having difficulty to swallowing. Patient has been having decrease PO intake for the past couple of days. Patient's last bowel movement was yesterday. Patient reports urinary frequency, but denies any history of fall, fever, chills, chest pain, shortness of breath, cough, abdominal pain, nausea, vomiting, diarrhea, back pain, neck pain, dizziness, dysuria or any other complaints. PMD: Dr. Perez Symptom Onset: Gradual Symptom Course: Unchanged Activities at Onset: Light Context: Home Past Medical History - Provider Review Nursing Documentation Reviewed: Yes - Infectious Disease Hx of Infectious Diseases: None - Tetanus Immunization Tetanus Immunization: Unknown - Cardiac Hx Cardiac Disorders: Yes Hx Hypertension: Yes - Pulmonary Hx Chronic Obstructive Pulmonary Disease (COPD): Yes - Neurological Hx Dementia: Yes Hx Transient Ischemic Attacks (TIA): Yes Other/Comment: "multiple strokes" - HEENT Hx HEENT Disorder: No - Renal Hx Renal Disorder: No - Endocrine/Metabolic Hx Diabetes Mellitus Type 2: Yes - Hematological/Oncological Hx Blood Disorders: No - Integumentary Hx Dermatological Disorder: No - Musculoskeletal/Rheumatological Hx Falls: No (pt denies) Hx Unsteady Gait: Yes - Gastrointestinal Hx Gastrointestinal Disorders: No - Genitourinary/Gynecological Hx Genitourinary Disorders: Yes Hx Incontinence: Yes Hx Prostate Problems: Yes - Psychiatric Hx Psychophysiologic Disorder: Yes Hx Substance Use: No (denies) Other/Comment: Alcohol use (4 beers and 5 shots of bourdon daily) - Past Surgical History Past Surgical History: No Previous - Anesthesia Hx Anesthesia: No Hx Anesthesia Reactions: No Hx Malignant Hyperthermia: No - Suicidal Assessment Feels Threatened In Home Enviroment: No Family/Social History - Physician Review Nursing Documentation Reviewed: Yes Family/Social History: No Known Family HX Smoking Status: Former Smoker Hx Alcohol Use: Yes Hx Substance Use: No (denies) Hx Substance Use Treatment: No Allergies/Home Meds Allergies/Adverse Reactions: Allergies No Known Allergies Allergy (Verified 12/02/17 20:47) Home Medications: Home Meds Medication Instructions Recorded Confirmed Metoprolol Tartrate [Lopressor] 25 mg PO DAILY 12/02/17 10/09/18 Bupropion HCl [Bupropion HCl Sr] 1 tab PO DAILY 10/09/18 10/09/18 Donepezil [Aricept] 1 tab PO HS 10/09/18 10/09/18 levETIRAcetam [Keppra] 500 mg PO Q12 10/09/18 10/09/18 Review of Systems - Physician Review All systems were reviewed & negative as marked: Yes - Review of Systems Constitutional: absent: Fevers, Other (chills) ENT: Other (throat pain) Respiratory: absent: SOB Gastrointestinal: Appetite Changes. absent: Abdominal Pain, Diarrhea, Nausea, Vomiting Genitourinary Male: Frequency. absent: Dysuria, Hematuria Musculoskeletal: absent: Back Pain, Neck Pain Neurological: absent: Headache, Dizziness Physical Exam Vital Signs Reviewed: Yes Vital Signs Temp Pulse Resp BP Pulse Ox 10/09/18 12:35 86 18 115/68 100 10/09/18 12:20 97.4 F L 86 18 93/63 L 92 L Temperature: Afebrile Blood Pressure: Normal Pulse: Regular Respiratory Rate: Normal Appearance: Positive for: Well-Appearing, Non-Toxic, Comfortable Pain Distress: None Mental Status: Positive for: Alert and Oriented X 3 - Systems Exam Head: Present: Atraumatic, Normocephalic Pupils: Present: PERRL Extroacular Muscles: Present: EOMI Conjunctiva: Present: Normal Mouth: Present: Dry (and pink) Pharnyx: No: ERYTHEMA, Muffled/Hoarse Voice, Soft Palate/Uvular Edema Neck: Present: Normal Range of Motion Respiratory/Chest: Present: Clear to Auscultation, Good Air Exchange. No: Respiratory Distress, Accessory Muscle Use Cardiovascular: Present: Regular Rate and Rhythm, Normal S1, S2. No: Murmurs Abdomen: Present: Normal Bowel Sounds. No: Tenderness, Distention, Peritoneal Signs Back: Present: Normal Inspection Upper Extremity: Present: Normal Inspection. No: Cyanosis, Edema Lower Extremity: Present: Normal Inspection. No: Edema Neurological: Present: GCS=15, Speech Normal, Motor Func Grossly Intact, Normal Sensory Function Skin: Present: Warm, Dry, Normal Color. No: Rashes Psychiatric: Present: Alert, Oriented x 3 Medical Decision Making ED Course and Treatment: 10/09/18 13:26 Impression: 78 year old male sent in by Dr. Perez complaining of throat pain, difficulty swallowing, decrease PO intact, and urinary frequency. Plan: -- CT Head -- EKG -- Labs -- Blood Culture, Urine Culture -- CXR -- UA -- Reassess and disposition Prior Visits: Notes and results from previous visits were reviewed. Progress Notes: EKG shows NSR at 88 BPM with normal QRS, normal axis, normal intervals, no acute ST/T wave abnormalities. Interpreted by me. PROCEDURE: CT HEAD WITHOUT CONTRAST. Dictator : Jevon Galicia MD Report Date : 10/09/2018 13:23:57 IMPRESSION: No acute intracranial findings CXR Dictator : Jevon Galicia MD Report Date : 10/09/2018 14:08:59 IMPRESSION: No active disease. 10/09/18 15:25 Patient is drinking water and IVF ordered. Patient is not able to give urine. Will do bladder scan. 10/09/18 16:05 112 CC noted on bladder scan. Will straight cath. 10/09/18 16:20 Additional IVF ordered. 16:45 Case d/w Dr. Gillette, hospitalist, accepts pt for obs med/surg. and patient agreeable/POC. - Lab Interpretations Lab Results: PT 14.8 SECONDS (9.4-12.5) H 10/09/18 12:45 INR 1.31 10/09/18 12:45 APTT 34.4 Seconds (26.9-38.3) 10/09/18 12:45 Troponin I < 0.01 ng/mL 10/09/18 12:45 Total Bilirubin 0.6 mg/dL (0.2-1.3) 10/09/18 12:45 AST 28 U/L (17-59) 10/09/18 12:45 ALT 16 U/L (7-56) 10/09/18 12:45 Alkaline Phosphatase 96 U/L (38-126) 10/09/18 12:45 Total Protein 8.1 g/dL (5.8-8.3) 10/09/18 12:45 Albumin 4.3 g/dL (3.0-4.8) 10/09/18 12:45 Globulin 3.8 gm/dL 10/09/18 12:45 Albumin/Globulin Ratio 1.1 (1.1-1.8) 10/09/18 12:45 I have reviewed the lab results: Yes - RAD Interpretation Radiology Orders: 10/09/18 12:34 HEAD W/O CONTRAST [CT] Stat 10/09/18 12:35 CHEST PORTABLE [RAD] Stat Swine Nutritionist: Radiologist - EKG Interpretation Interpreted by ED Physician: Yes Type: 12 lead EKG - Scribe Statement The provider has reviewed the documentation as recorded by the Scribradha Stahl All medical record entries made by the Tavaresibradha were at my direction and perso cathy dictated by me. I have reviewed the chart and agree that the record accurately reflects my personal performance of the history, physical exam, medical decision making, and the department course for this patient. I have also personally directed, reviewed, and agree with the discharge instructions and disposition Disposition/Present on Arrival - Present on Arrival Any Indicators Present on Arrival: No History of DVT/PE: No History of Uncontrolled Diabetes: No Urinary Catheter: No History of Decub. Ulcer: No History Surgical Site Infection Following: None - Disposition Have Diagnosis and Disposition been Completed?: Yes Diagnosis: Dehydration Disposition: HOSPITALIZED Disposition Time: 16:45 Patient Plan: Admission Patient Problems: Current Active Problems Problem Status Onset Dehydration Acute Condition: STABLE
--- NOTE | 2018-10-09 14:12 | RAD ---
Date of service: 10/09/2018 HISTORY: ams COMPARISON: 12/02/2017 TECHNIQUE: 1 view obtained. FINDINGS: LUNGS: No active pulmonary disease. PLEURA: No significant pleural effusion identified, no pneumothorax apparent. CARDIOVASCULAR: No aortic atherosclerotic calcification present. Normal cardiac size. No pulmonary vascular congestion. OSSEOUS STRUCTURES: No significant abnormalities. VISUALIZED UPPER ABDOMEN: Normal. OTHER FINDINGS: None. IMPRESSION: No active disease.
[2018-10-09] MEDS ORDERED: Sodium Chloride 0.9% 1,000 ML IV STA ×2 (15:42→18:17)
[2018-10-09 16:17] LABS: PH,URINE 5.5 (4.7-8.0); URINE BILIRUBIN SMALL (NEGATIVE); URINE BLOOD TRACE-LYSED (NEGATIVE); URINE GLUCOSE (UA) NEGATIVE (NEGATIVE); URINE LEUKOCYTE ESTERASE NEGATIVE Leu/uL (NEGATIVE); URINE PROTEIN 100 mg/dL (<30 mg/dL)
[2018-10-09 16:19] LABS: URINE APPEARANCE SLIGHT-CLOUDY (CLEAR); URINE COLOR YELLOW (YELLOW)
[2018-10-09 17:14] LABS: URINE AMORPHOUS SEDIMENT MODERATE /hpf
[2018-10-09 17:58] LABS: BARBITURATES, UR NEGATIVE (NEGATIVE); BENZODIAZEPINES, UR NEGATIVE (NEGATIVE); OPIATES, UR NEGATIVE (NEGATIVE); PHENCYCLIDINE, UR NEGATIVE (NEGATIVE)
[2018-10-09] MEDS ORDERED: Sodium Chloride 0.9% 1,000 ML IV SCH ×2 (18:15→20:00)
[2018-10-09] MEDS ORDERED: Albuterol-Ipratrop 3 mg / 0.5 (3 ml) UD IH PRN (18:17)
--- NOTE | 2018-10-09 19:02 | CP.PCM.HP ---
<Antonio Soto - Last Filed: 10/09/18 18:54> History of Present Illness - History of Present Illness History of Present Illness: Antonio Soto, PGY1 H&P for Dr. 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 Verma) for "not looking well" and having difficulty and pain with swallowing. Patient said this is a new issue and has not happened before. He can take in liquids but it is hard for him to take in solids. Patient said he has not been eating much in the past few days either because of this. Patient also has some trouble with urination for the past few days as well. He does endorse a 10 pound weight loss in the past month. Patient denies ever having a colonoscopy or endoscopy. He denies headache, fever, chills, n/v/d, cp, sob. A full 12 point ROS was conducted and unremarkable except as stated above. PMD: Dr. 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 FamHx: brother had a stroke at 74 y/o Present on Admission - Present on Admission Any Indicators Present on Admission: No Review of Systems - Review of Systems All systems: reviewed and no additional remarkable complaints except (as per HPI) Past Patient History - Infectious Disease Hx of Infectious Diseases: None - Tetanus Immunizations Tetanus Immunization: Unknown - Past Social History Smoking Status: Former Smoker - CARDIAC Hx Cardiac Disorders: Yes Hx Hypertension: Yes - PULMONARY Hx Chronic Obstructive Pulmonary Disease (COPD): Yes - NEUROLOGICAL Hx Dementia: Yes Hx Transient Ischemic Attacks (TIA): Yes Other/Comment: "multiple strokes" - HEENT Hx HEENT Problems: No - RENAL Hx Chronic Kidney Disease: No - ENDOCRINE/METABOLIC Hx Diabetes Mellitus Type 2: Yes - HEMATOLOGICAL/ONCOLOGICAL Hx Blood Disorders: No - INTEGUMENTARY Hx Dermatological Problems: No - MUSCULOSKELETAL/RHEUMATOLOGICAL Hx Falls: No (pt denies) Hx Unsteady Gait: Yes - GASTROINTESTINAL Hx Gastrointestinal Disorders: No - GENITOURINARY/GYNECOLOGICAL Hx Genitourinary Disorders: Yes Hx Incontinence: Yes Hx Prostate Problems: Yes - PSYCHIATRIC Hx Psychophysiologic Disorder: Yes Hx Substance Use: No (denies) Other/Comment: Alcohol use (4 beers and 5 shots of bourdon daily) - SURGICAL HISTORY Hx Surgeries: No - ANESTHESIA Hx Anesthesia: No Hx Anesthesia Reactions: No Hx Malignant Hyperthermia: No Meds Allergies/Adverse Reactions: Allergies Allergy/AdvReac Type Severity Reaction Status Date / Time No Known Allergies Allergy Verified 12/02/17 20:47 Physical Exam - Constitutional Appears: No Acute Distress - Head Exam Head Exam: ATRAUMATIC, NORMAL INSPECTION, NORMOCEPHALIC - Eye Exam Eye Exam: EOMI, Normal appearance, PERRL - ENT Exam ENT Exam: Mucous Membranes Dry Additional comments: Oral pharynx is clear of obstruction. No pharyngeal edema. No erythema or signs of infection. - Neck Exam Neck exam: Positive for: Normal Inspection. Negative for: Lymphadenopathy - Respiratory Exam Respiratory Exam: Clear to Auscultation Bilateral, Wheezes, NORMAL BREATHING PATTERN. absent: Accessory Muscle Use, Chest Wall Tenderness, Rales, Rhonchi - Cardiovascular Exam Cardiovascular Exam: REGULAR RHYTHM, +S1, +S2 - GI/Abdominal Exam GI & Abdominal Exam: Normal Bowel Sounds, Soft. absent: Guarding, Organomegaly, Rebound, Rigid, Tenderness - Extremities Exam Extremities exam: Positive for: normal capillary refill, normal inspection, pedal pulses present - Back Exam Back exam: NORMAL INSPECTION - Neurological Exam Neurological exam: Alert, CN II-XII Intact, Oriented x3 - Psychiatric Exam Psychiatric exam: Normal Affect, Normal Mood - Skin Skin Exam: Dry, Intact, Normal Color, Warm Results - Vital Signs Recent Vital Signs: Last Vital Signs Temp 98.1 F 10/09/18 18:39 Pulse 71 10/09/18 18:39 Resp 18 10/09/18 18:39 BP 138/81 10/09/18 18:39 Pulse Ox 97 10/09/18 18:39 - Labs Result Diagrams: 10/09/18 12:45 10/09/18 12:45 Labs: Laboratory Results - last 24 hr 10/09/18 10/09/18 10/09/18 12:45 12:45 12:45 WBC 16.0 H RBC 5.24 Hgb 14.1 Hct 43.9 MCV 83.8 MCH 26.9 MCHC 32.1 RDW 14.6 H Plt Count 298 MPV 9.9 Neut % (Auto) 75.5 H Lymph % (Auto) 10.4 L [place] % (Auto) 12.5 H Eos % (Auto) 1.4 L Baso % (Auto) 0.2 Lymph # (Auto) 1.7 [place] # (Auto) 2.0 H Eos # (Auto) 0.2 Baso # (Auto) 0.04 Absolute Neuts (auto) 12.08 H PT 14.8 H INR 1.31 APTT 34.4 Sodium 138 Potassium 4.1 Chloride 101 Carbon Dioxide 24 Anion Gap 18 BUN 33 H Creatinine 1.6 H Est GFR ( Amer) 51 Est GFR (Non-Af Amer) 42 POC Glucose (mg/dL) Random Glucose 164 H Calcium 9.7 Phosphorus 4.4 Magnesium 2.1 Total Bilirubin 0.6 AST 28 ALT 16 Alkaline Phosphatase 96 Ammonia Lactate Dehydrogenase 416 Total Creatine Kinase 117 Troponin I < 0.01 Total Protein 8.1 Albumin 4.3 Globulin 3.8 Albumin/Globulin Ratio 1.1 TSH 3rd Generation Urine Color Urine Appearance Urine pH Ur Specific [facility] [place] Urine Protein Urine Glucose (UA) Urine Ketones Urine Blood Urine Nitrate Urine Bilirubin Urine Urobilinogen Ur Leukocyte Esterase Urine RBC Urine WBC Ur Epithelial Cells Amorphous Sediment Urine Opiates Screen Urine Methadone Screen Ur Barbiturates Screen Ur Phencyclidine Scrn Ur Amphetamines Screen U Benzodiazepines Scrn U Oth Cocaine Metabols U Cannabinoids Screen Alcohol, Quantitative 10/09/18 10/09/18 10/09/18 12:45 13:09 16:13 WBC RBC Hgb Hct MCV MCH MCHC RDW Plt Count MPV Neut % (Auto) Lymph % (Auto) [place] % (Auto) Eos % (Auto) Baso % (Auto) Lymph # (Auto) [place] # (Auto) Eos # (Auto) Baso # (Auto) Absolute Neuts (auto) PT INR APTT Sodium Potassium Chloride Carbon Dioxide Anion Gap BUN Creatinine Est GFR ( Amer) Est GFR (Non-Af Amer) POC Glucose (mg/dL) Random Glucose Calcium Phosphorus Magnesium Total Bilirubin AST ALT Alkaline Phosphatase Ammonia < 9 L Lactate Dehydrogenase Total Creatine Kinase Troponin I Total Protein Albumin Globulin Albumin/Globulin Ratio TSH 3rd Generation 3.24 Urine Color Yellow Urine Appearance Slight-cloudy Urine pH 5.5 Ur Specific [place] >= 1.030 Urine Protein 100 H Urine Glucose (UA) Negative Urine Ketones 15 H Urine Blood Trace-lysed H Urine Nitrate Negative Urine Bilirubin Small H Urine Urobilinogen 1.0 H Ur Leukocyte Esterase Negative Urine RBC 5 - 10 H Urine WBC 2 - 5 Ur Epithelial Cells 6 - 8 H Amorphous Sediment Moderate Urine Opiates Screen Urine Methadone Screen Ur Barbiturates Screen Ur Phencyclidine Scrn Ur Amphetamines Screen U Benzodiazepines Scrn U Oth Cocaine Metabols U Cannabinoids Screen Alcohol, Quantitative < 10 10/09/18 10/09/18 16:13 18:50 WBC RBC Hgb Hct MCV MCH MCHC RDW Plt Count MPV Neut % (Auto) Lymph % (Auto) [place] % (Auto) Eos % (Auto) Baso % (Auto) Lymph # (Auto) [place] # (Auto) Eos # (Auto) Baso # (Auto) Absolute Neuts (auto) PT INR APTT Sodium Potassium Chloride Carbon Dioxide Anion Gap BUN Creatinine Est GFR ( Amer) Est GFR (Non-Af Amer) POC Glucose (mg/dL) 95 Random Glucose Calcium Phosphorus Magnesium Total Bilirubin AST ALT Alkaline Phosphatase Ammonia Lactate Dehydrogenase Total Creatine Kinase Troponin I Total Protein Albumin Globulin Albumin/Globulin Ratio TSH 3rd Generation Urine Color Urine Appearance Urine pH Ur Specific [facility] [place] Urine Protein Urine Glucose (UA) Urine Ketones Urine Blood Urine Nitrate Urine Bilirubin Urine Urobilinogen Ur Leukocyte Esterase Urine RBC Urine WBC Ur Epithelial Cells Amorphous Sediment Urine Opiates Screen Negative Urine Methadone Screen Negative Ur Barbiturates Screen Negative Ur Phencyclidine Scrn Negative Ur Amphetamines Screen Negative U Benzodiazepines Scrn Negative U Oth Cocaine Metabols Negative U Cannabinoids Screen Negative Alcohol, Quantitative Assessment & Plan - Assessment and Plan (Free Text) Assessment: Patient is a 78 y/o M with PMHx COPD, DM II, EtOH, Tobacco use (1-1.5 PPD), CVA (2017; multiple infarcts at R-Parietal, bilateral occipital, and frontal lobes with no residual defects) who presented to the ED because he was sent from his PMD's office (Dr. Verma) for "not looking well" and having difficulty and pain with swallowing. Patient admitted for dysphagia and ARABELLA 2/2 dehydration. Plan: Dysphagia - CT soft tissue neck - speech and swallow eval - PT - NPO - aspiration precautions - head of bed elevation - mild leukocytosis - monitor; no active signs of infection; pending blood cx and ucx - utox negative - Former history of tobacco abuse and EtOH abuse ARABELLA 2/2 Dehydration and Poor PO intake - IVF NS bolus, then IVF @ 150 cc/hr; no hx of CHF (last EF 55% on prior charts) - BUN/Cr 33/1.6 on admission (baseline Cr 0.9) - monitor Decreased Urine Output 2/2 Dehydration - c/w IVF - strict ins/out - Patient straight cath'd in ED - UA contaminated sample; f/u ucx COPD - wheezing on exam - duonebs prn and scheduled - monitor ppx: - hep sc Diet: NPO Dispo: monitor patient on med/surg. Case was discussed and reviewed with Attending Physician, Dr. Gillette. Assessment/Plan Progress Note - Problems Patient Problems: Problem List (Active/Current) Problem Status Onset Code Dehydration Acute E86.0 <Joy Gillette - Last Filed: 10/10/18 13:42> Results - Vital Signs Recent Vital Signs: Last Vital Signs Temp 97.6 F 10/10/18 09:10 Pulse 78 10/10/18 09:10 Resp 20 10/10/18 09:10 BP 138/66 10/10/18 09:10 Pulse Ox 94 L 10/10/18 09:10 - Labs Result Diagrams: 10/10/18 05:30 10/10/18 05:30 Labs: Laboratory Results - last 24 hr 10/09/18 10/09/18 10/09/18 12:45 13:09 16:13 WBC RBC Hgb Hct MCV MCH MCHC RDW Plt Count MPV Sodium Potassium Chloride Carbon Dioxide Anion Gap BUN Creatinine Est GFR ( Amer) Est GFR (Non-Af Amer) POC Glucose (mg/dL) Random Glucose Calcium Total Bilirubin AST ALT Alkaline Phosphatase Ammonia < 9 L Total Protein Albumin Globulin Albumin/Globulin Ratio TSH 3rd Generation 3.24 Urine Color Yellow Urine Appearance Slight-cloudy Urine pH 5.5 Ur Specific [facility] >= 1.030 Urine Protein 100 H Urine Glucose (UA) Negative Urine Ketones 15 H Urine Blood Trace-lysed H Urine Nitrate Negative Urine Bilirubin Small H Urine Urobilinogen 1.0 H Ur Leukocyte Esterase Negative Urine RBC 5 - 10 H Urine WBC 2 - 5 Ur Epithelial Cells 6 - 8 H Amorphous Sediment Moderate Urine Opiates Screen Urine Methadone Screen Ur Barbiturates Screen Ur Phencyclidine Scrn Ur Amphetamines Screen U Benzodiazepines Scrn U Oth Cocaine Metabols U Cannabinoids Screen 10/09/18 10/09/18 10/09/18 16:13 18:50 21:31 WBC RBC Hgb Hct MCV MCH MCHC RDW Plt Count MPV Sodium Potassium Chloride Carbon Dioxide Anion Gap BUN Creatinine Est GFR ( Amer) Est GFR (Non-Af Amer) POC Glucose (mg/dL) 95 74 Random Glucose Calcium Total Bilirubin AST ALT Alkaline Phosphatase Ammonia Total Protein Albumin Globulin Albumin/Globulin Ratio TSH 3rd Generation Urine Color Urine Appearance Urine pH Ur Specific [facility] [place] Urine Protein Urine Glucose (UA) Urine Ketones Urine Blood Urine Nitrate Urine Bilirubin Urine Urobilinogen Ur Leukocyte Esterase Urine RBC Urine WBC Ur Epithelial Cells Amorphous Sediment Urine Opiates Screen Negative Urine Methadone Screen Negative Ur Barbiturates Screen Negative Ur Phencyclidine Scrn Negative Ur Amphetamines Screen Negative U Benzodiazepines Scrn Negative U Oth Cocaine Metabols Negative U Cannabinoids Screen Negative 10/10/18 10/10/18 10/10/18 01:50 05:30 05:30 WBC 8.9 D RBC 4.36 Hgb 11.3 L D Hct 36.2 L MCV 83.0 MCH 25.9 MCHC 31.2 RDW 14.4 Plt Count 256 MPV 9.7 Sodium 139 Potassium 3.7 Chloride 107 Carbon Dioxide 24 Anion Gap 12 BUN 26 H Creatinine 1.0 Est GFR ( Amer) > 60 Est GFR (Non-Af Amer) > 60 POC Glucose (mg/dL) 67 Random Glucose 103 Calcium 8.4 Total Bilirubin 0.4 AST 23 ALT 19 Alkaline Phosphatase 71 Ammonia Total Protein 5.9 Albumin 2.9 L Globulin 3.0 Albumin/Globulin Ratio 1.0 L TSH 3rd Generation Urine Color Urine Appearance Urine pH Ur Specific [facility] [place] Urine Protein Urine Glucose (UA) Urine Ketones Urine Blood Urine Nitrate Urine Bilirubin Urine Urobilinogen Ur Leukocyte Esterase Urine RBC Urine WBC Ur Epithelial Cells Amorphous Sediment Urine Opiates Screen Urine Methadone Screen Ur Barbiturates Screen Ur Phencyclidine Scrn Ur Amphetamines Screen U Benzodiazepines Scrn U Oth Cocaine Metabols U Cannabinoids Screen Attending/Attestation - Attestation I have personally seen and examined this patient.: Yes I have fully participated in the care of the patient.: Yes I have reviewed all pertinent clinical information: Yes Notes (Text): 10/10/18 13:29 Attending note; Patient seen and examined with resident. Patient is alert and awake. Patient's by the bedside. Denies any fevers, chills. Denies any nausea, vomiting. Complaining of poor p.o. intake and dysphagia. Complaining of recent weight loss. Denies any urinary, bowel symptoms. Patient is a 78 year old male with PMHx COPD, DM II, EtOH, Tobacco use (1-1.5 PPD), CVA (2017; multiple infarcts at R-Parietal, bilateral occipital, and frontal lobes with no residual defects) who presented to the ED because he was sent from his PMD's office (Dr. Verma) for "not looking well". 1. Acute renal failure; secondary to dehydration. Started on IV fluids Monitor creatinine closely. 2. Dysphagia; continue IV fluids. N.p.o. speech and swallow evaluation Requested. 3. copd; continue DuoNeb as needed. 4. History of CVA/ dementia; continue Aricept. 5. Active smoking; smoking cessation is strongly advised. 6. Diabetes; diet controlled. Hemoglobin A1c ordered. Continue fingerstick. 7. depression; continue bupropion. PT evaluation requested. Upon discharge the patient will follow up with PMD Dr. Verma.
[2018-10-09] MEDS: Albuterol-Ipratrop 3 mg / 0.5 (3 ml) UD IH SCH (19:46)
[2018-10-09] MEDS: Insulin Lispro (humaLOG) LOW Coverage SC SCH (22:18)
--- NOTE | 2018-10-09 22:33 | CARD ---
APPROVED REPORT Date of service: 10/09/2018 EKG Measurement Heart [id number] <Conclusion> Sinus rhythm with PAC's Otherwise normal ECG
[2018-10-09] MEDS ORDERED: Influenza Vaccine 60 mcg/0.5 mL SYR (4YR UP) IM ONE (22:41)
[2018-10-09] MEDS ORDERED: Pneumococcal 23-Valent Vaccine IM ONE (22:41)
[2018-10-10 05:48] LABS: HEMOGLOBIN 11.3 g/dL (14.0-18.0); MEAN CORPUSCULAR HEMOGLOBIN 25.9 pg (25.0-35.0); MEAN CORPUSCULAR HGB CONC 31.2 g/dl (31.0-37.0); MEAN PLATELET VOLUME 9.7 fl (7.0-11.0); RBC 4.36 10^6/uL (3.5-6.1); RED CELL DISTRIBUTION WIDTH 14.4 % (11.5-14.5); WHITE BLOOD COUNT 8.9 10^3/uL (4.5-11.0)
[2018-10-10 06:00] LABS: ALBUMIN 2.9 g/dL (3.0-4.8); ALT/SGPT 19 U/L (7-56); AST/SGOT 23 U/L (17-59); BLOOD UREA NITROGEN 26 mg/dL (7-21); CALCIUM 8.4 mg/dL (8.4-10.5); GFR NON-AFRICAN AMERICAN > 60
[2018-10-10] MEDS: Insulin Lispro (humaLOG) LOW Coverage SC SCH ×4 (07:52→21:59)
[2018-10-10] MEDS ORDERED: Sodium Chloride 0.9% 1,000 ML IV SCH (08:06)
[2018-10-10] MEDS: Albuterol-Ipratrop 3 mg / 0.5 (3 ml) UD IH SCH ×3 (08:15→20:20)
--- NOTE | 2018-10-10 09:47 | CP.PCM.PN ---
<Jaime Jacobson - Last Filed: 10/10/18 10:08> Subjective - Date & Time of Evaluation Date of Evaluation: 10/10/18 Time of Evaluation: 07:38 - Subjective Subjective: Jaime Jacobson PGY IM Progress Note for Dr. Gillette Patient was seen and examined at bedside. He is requesting to be started on a diet. He denies any shortness of breath, chest pain, fevers/chills, nausea/vomiting. Patient is tolerating liquids well. Speech pathologist evaluation is pending. Objective - Vital Signs/Intake and Output Vital Signs (last 24 hours): Temp Pulse Resp BP Pulse Ox 97.6 F 78 20 138/66 94 L 10/10/18 09:10 10/10/18 09:10 10/10/18 09:10 10/10/18 09:10 10/10/18 09:10 Intake and Output: 10/10/18 10/10/18 06:59 18:59 Intake Total 1500 Output Total 200 Balance 1300 - Medications Medications: Current Medications Albuterol/Ipratropium (Duoneb 3 Mg/0.5 Mg (3 Ml) Ud) 3 ml IH Q4H PRN PRN Reason: Shortness of Breath Albuterol/Ipratropium (Duoneb 3 Mg/0.5 Mg (3 Ml) Ud) 3 ml IH [id number] [facility] Last Admin: 10/10/18 08:15 Dose: 3 ml Heparin Sodium (Porcine) (Heparin) 5,000 units SC Q8 [facility]; Protocol Last Admin: 10/10/18 05:15 Dose: 5,000 units Sodium Chloride (Sodium Chloride 0.9%) 1,000 mls @ 75 mls/hr IV .[id number] [facility] Insulin Human Lispro (Humalog Low) 0 units SC ACHS [facility]; Protocol Last Admin: 10/10/18 07:52 Dose: Not Given - Labs Labs: 10/10/18 05:30 10/10/18 05:30 PT 14.8 SECONDS (9.4-12.5) H 10/09/18 12:45 INR 1.31 10/09/18 12:45 APTT 34.4 Seconds (26.9-38.3) 10/09/18 12:45 - Constitutional Appears: Well, Non-toxic, No Acute Distress, Chronically Ill - Head Exam Head Exam: ATRAUMATIC, NORMAL INSPECTION - Eye Exam Eye Exam: EOMI, Normal appearance, PERRL - ENT Exam ENT Exam: Mucous Membranes Moist, Normal Exam, Normal Oropharynx - Neck Exam Neck Exam: Full ROM, Normal Inspection - Respiratory Exam Respiratory Exam: Decreased Breath Sounds, NORMAL BREATHING PATTERN. absent: Wheezes, Respiratory Distress - Cardiovascular Exam Cardiovascular Exam: RRR, +S1, +S2 - GI/Abdominal Exam GI & Abdominal Exam: Soft, Normal Bowel Sounds. absent: Distended, Tenderness - Extremities Exam Extremities Exam: Full ROM, Normal Inspection - Back Exam Back Exam: NORMAL INSPECTION. absent: tenderness - Neurological Exam Neurological Exam: Alert, Awake. absent: Motor Sensory Deficit - Skin Skin Exam: Dry, Warm Assessment and Plan - Assessment and Plan (Free Text) Assessment: 78 year old male with a PMH of DM2, extensive tobacco use, COPD, EtOH use, and CVA who is admitted for work-up of dysphagia w/ solid foods (not liquids) and associated weight loss. Patient is tolerating liquid diet well at this time, but will require speech pathologist evaluation to r/o neurologic etiology of dysphagia given his hx CVA. Given specific dysphagia with solid foods and hx of tobacco abuse, malignancy needs to be considered. ARABELLA is improving w/ IVF hy dration. Anemia is also noted, lower than his baseline. Plan: 1. Dypshagia - will order CT chest w/ contrast and CT soft tissue neck - Speech pathologist eval is pending - started on CLD, patient tolerating - Aspiration precautions, elevate head of bed - no prior endoscopic evaluations - depending on swallow eval results and CT chest, GI may be consulted later during admission - TSH reviewed, normal - A1C ordered 2. ARABELLA, likely pre-renal - resolved - started on CLD, so NS will be decreased - IVF rate decreased to 75cc - will bladder scan due to hx of urinary retention - blood and urine cultures pending 3. COPD, improved - duonebs claudine and prn 4. Anemia - will order work-up 5. PPX - Heparin for DVT ppx - No indications PPI Case was reviewed and discussed with Dr. Gillette <Joy Gillette - Last Filed: 10/10/18 13:46> Objective - Vital Signs/Intake and Output Vital Signs (last 24 hours): Temp Pulse Resp BP Pulse Ox 97.6 F 78 20 138/66 94 L 10/10/18 09:10 10/10/18 09:10 10/10/18 09:10 10/10/18 09:10 10/10/18 09:10 Intake and Output: 10/10/18 10/10/18 06:59 18:59 Intake Total 1500 Output Total 200 Balance 1300 - Medications Medications: Current Medications Albuterol/Ipratropium (Duoneb 3 Mg/0.5 Mg (3 Ml) Ud) 3 ml IH Q4H PRN PRN Reason: Shortness of Breath Albuterol/Ipratropium (Duoneb 3 Mg/0.5 Mg (3 Ml) Ud) 3 ml IH [id number] [facility] Last Admin: 10/10/18 08:15 Dose: 3 ml Aspirin (Aspirin Chewable) 81 mg PO DAILY [facility] Atorvastatin Calcium (Lipitor) 40 mg PO DIN [facility] Bupropion HCl (Wellbutrin Sr 150 Mg) 150 mg PO DAILY [facility] Folic Acid (Folic Acid) 1 mg PO DAILY [facility] Heparin Sodium (Porcine) (Heparin) 5,000 units SC Q8 [facility]; Protocol Last Admin: 10/10/18 05:15 Dose: 5,000 units Sodium Chloride (Sodium Chloride 0.9%) 1,000 mls @ 75 mls/hr IV .[id number] [facility] Insulin Human Lispro (Humalog Low) 0 units SC ACHS [facility]; Protocol Last Admin: 10/10/18 07:52 Dose: Not Given Levetiracetam (Keppra) 500 mg PO Q12 [facility] Metoprolol Tartrate (Lopressor) 25 mg PO DAILY [facility] Pantoprazole Sodium (Protonix Inj) 40 mg IVP DAILY [facility] - Labs Labs: 10/10/18 05:30 10/10/18 05:30 PT 14.8 SECONDS (9.4-12.5) H 10/09/18 12:45 INR 1.31 10/09/18 12:45 APTT 34.4 Seconds (26.9-38.3) 10/09/18 12:45 Attending/Attestation - Attestation I have personally seen and examined this patient.: Yes I have fully participated in the care of the patient.: Yes I have reviewed all pertinent clinical information, including history, physical exam and plan: Yes Notes (Text): 10/10/18 13:44 Attending note; Patient seen and examined with resident. Patient is alert and awake. Denies any fevers, chills. Denies any nausea, vomiting. Complaining of poor p.o. intake and dysphagia. Complaining of recent weight loss. Denies any urinary, bowel symptoms. Patient is a 78 year old male with PMHx COPD, DM II, EtOH, Tobacco use (1-1.5 PPD), CVA (2017; multiple infarcts at R-Parietal, bilateral occipital, and frontal lobes with no residual defects) who presented to the ED because he was sent from his PMD's office (Dr. Verma) for "not looking well". 1. Acute renal failure; resolving with IV fluids. Still with poor p.o. intake. On liquid diet. 2. Dysphagia; speech and swallow evaluation appreciated. Patient has significant reflux symptoms. Dysphagia for solid food. Will get CT chest abdomen and pelvis because of weight loss and history of smoking. GI evaluation requested. 3. copd; continue DuoNeb as needed. 4. History of CVA/ dementia; monitor closely. 5. Active smoking; smoking cessation is strongly advised. 6. Diabetes; diet controlled. Hemoglobin A1c ordered. Continue fingerstick. 7. depression; continue bupropion. PT evaluation requested. Upon discharge the patient will follow up with PMD Dr. Verma.
[2018-10-10] MEDS ORDERED: Iohexol 240 (50 ml) ONE (11:34)
[2018-10-10] MEDS ORDERED: Iohexol 350 MG/100 ML VIAL ONE (15:15)
--- NOTE | 2018-10-10 16:23 | CT ---
Date of service: 10/10/2018 CT chest, abdomen, and pelvis with IV contrast Indication: evaluate dysphagia (w/ solids), r/o malignancy Technique: Contiguous axial images of the chest, abdomen, and pelvis. Coronal and Sagittal reformats generated and reviewed. This CT exam was performed using 1 or more of the following dose reduction techniques: Automated exposure control, adjustment of the MAA and/or kV according to patient size, and/or use of iterative reconstruction technique. Contrast: 100 mL Omnipaque 350 Radiation dose: Total exam DLP = 892.05 MGy-cm. Comparison: Chest x-ray performed 10/09/18, CT chest without contrast performed 01/04/17 Findings: Visualized portions of the inferior thyroid gland appear unremarkable. The mediastinal and hilar vascular structures appear within normal limits. The heart appears within normal limits of size. Emphysematous changes. Scattered regions of atelectasis/scarring bilaterally. Pleural based thickening, right horizontal fissure. Bibasilar atelectasis. No pleural effusion. No pneumothorax. Moderate hiatal hernia. Distal esophageal wall thickening. Debris in fluid within the mid to distal esophagus consistent with gastroesophageal reflux. Evidence of longstanding curvilinear nonspecific hypodensity within the posterior left hepatic lobe with associated calcification peripherally; this finding is of uncertain etiology. Nodular hypertrophy of the left adrenal gland. 8 mm hypodensity at the pancreatic head/uncinate, too small to characterize possibly cyst. The spleen, kidneys, pancreas, right adrenal gland, and gallbladder appear otherwise grossly unremarkable. The stomach is nondistended. The bowel loops appear within normal limits of caliber without evidence of intestinal obstruction. There is no definite free air. Diverticulosis without CT evidence of acute diverticulitis. The appendix appears within normal limits of caliber. No secondary signs of acute appendicitis. Infrarenal abdominal aortic aneurysm measures approximately 3.9 x 3.9 x 4.8 cm (AP by transverse by CC dimensions) with associated dense mural thrombus. The prostate gland measures approximately 4.1 x 5.4 cm. The urinary bladder appears unremarkable. Degenerative changes. Right 6th, 8th, 9th, and 10th chronic appearing rib fracture deformities. Impression: Moderate hiatal hernia. Distal esophageal wall thickening. Debris within the mid to distal esophagus consistent with gastroesophageal reflux. Recommend further evaluation with endoscopy. Enlarged prostate gland. Recommend correlation with PSA. Evidence of longstanding curvilinear nonspecific hypodensity within the posterior left hepatic lobe with associated calcification peripherally; this finding is of uncertain etiology. 8 mm hypodensity at the pancreatic head/uncinate, too small to characterize possibly cyst. Emphysematous changes. Scattered regions of atelectasis/scarring bilaterally. Pleural based thickening, right horizontal fissure. Bibasilar atelectasis. Infrarenal abdominal aortic aneurysm measures approximately 3.9 x 3.9 x 4.8 cm (AP by transverse by CC dimensions) with associated dense mural thrombus. Additional findings as above.
[2018-10-10] MEDS: Dextrose 5%/0.45% NS 1,000 ML IV SCH (18:58)
[2018-10-10] MEDS: levETIRAcetam 500 mg/5ml UD cups PO SCH (21:58)
[2018-10-11] MEDS: Albuterol-Ipratrop 3 mg / 0.5 (3 ml) UD IH SCH ×4 (01:46→19:33)
[2018-10-11] MEDS ORDERED: Pantoprazole 40 mg EC Tab PO SCH (06:00)
[2018-10-11 07:41] LABS: HEMOGLOBIN 12.8 g/dL (14.0-18.0); MEAN CELL VOLUME 81.7 fl (80.0-105.0); MEAN CORPUSCULAR HEMOGLOBIN 26.7 pg (25.0-35.0); MEAN CORPUSCULAR HGB CONC 32.7 g/dl (31.0-37.0); MEAN PLATELET VOLUME 9.7 fl (7.0-11.0); RBC 4.8 10^6/uL (3.5-6.1); RED CELL DISTRIBUTION WIDTH 14.4 % (11.5-14.5); WHITE BLOOD COUNT 9.5 10^3/uL (4.5-11.0)
[2018-10-11 08:04] LABS: ALB/GLOB RATIO 1.1 (1.1-1.8); ALBUMIN 3.6 g/dL (3.0-4.8); ALT/SGPT 16 U/L (7-56); AST/SGOT 27 U/L (17-59); BLOOD UREA NITROGEN 8 mg/dL (7-21); GFR NON-AFRICAN AMERICAN > 60
[2018-10-11] MEDS: Insulin Lispro (humaLOG) LOW Coverage SC SCH ×4 (08:50→21:31)
[2018-10-11] MEDS: levETIRAcetam 500 mg/5ml UD cups PO SCH ×2 (09:21→21:31)
[2018-10-11] MEDS: buPROPion SR 150 MG TABLET PO SCH (09:21)
[2018-10-11] MEDS: Dextrose 5%/0.45% NS 1,000 ML IV SCH ×2 (12:51→21:30)
--- NOTE | 2018-10-11 13:06 | CT ---
Date of service: 10/10/2018 PROCEDURE: CT NECK WITHOUT CONTRAST HISTORY: dysphagia COMPARISON: Cervical spine CT 11/17/[address] 04/19/2016. TECHNIQUE: CT of the neck without intravenous contrast. Coronal and sagittal reformats generated. Radiation dose: Total exam DLP = 624.5 mGy-cm. This CT exam was performed using one or more of the following dose reduction techniques: Automated exposure control, adjustment of the mA and/or kV according to patient size, and/or use of iterative reconstruction technique. FINDINGS: NASOPHARYNX: Unremarkable. Incidental mild sinusitis bilateral ethmoid sinuses. SUPRAHYOID NECK: Edentulous oral cavity which is otherwise unremarkable. Unremarkable oropharynx, parapharyngeal space and retropharyngeal space. INFRAHYOID NECK: Unremarkable larynx, hypopharynx, and supraglottic space. Vocal cords intact. No mass identified in the aorta pulmonary window or the azygoesophageal recess, that would impinge on the recurrent laryngeal nerves. GLANDS: Parotid and submandibular glands unremarkable. Mild atrophy of thyroid gland, without nodule. LYMPH NODES: No significant lymphadenopathy. CERVICAL SPINE: Stable multilevel degenerative spondylosis, particularly anteriorly which could reflect in the patient's dysphagia. Consider video fluoroscopic swallowing examination if not already performed. OTHER FINDINGS: Thickening of the proximal to mid visualized esophagus may indicate esophagitis. Further clinically correlate. Trace presumed oral contrast material is identified within the lumen of the visualized upper mid intrathoracic esophagus. Evaluation of the vascular anatomy is remarkable for gross calcified atherosclerosis at left carotid bulb in this patient with a known left ICA occlusion. Finally, COPD changes are again identified as well as right apical fibrosis with this small area fibrosis dating back at least to prior chest CT 04/19/2016, unchanged in the interval. IMPRESSION: No overt finding to correspond to clinical history of dysphagia other than [id number] multilevel cervical spondylosis anteriorly. Consider follow-up video fluoroscopic swallowing examination for added evaluation of dysphagia. No definite supra or infrahyoid neck mass appreciable in this unenhanced CT. Mild esophagitis of the visualized esophagus is not excluded. Gross calcified atherosclerosis at distal left CCA/carotid bulb again identified in this patient with clinical history of occluded left ICA. Stable right apical pulmonary fibrosis incidentally noted as well as pulmonary emphysema, as per above.
[2018-10-11 14:02] LABS: BLOOD UREA NITROGEN 10 mg/dL (7-21); CALCIUM 8.9 mg/dL (8.4-10.5); GFR NON-AFRICAN AMERICAN > 60
--- NOTE | 2018-10-11 16:16 | CP.PCM.PN ---
<Vandana Kramer - Last Filed: 10/11/18 16:09> Subjective - Date & Time of Evaluation Date of Evaluation: 10/11/18 Time of Evaluation: 09:30 - Subjective Subjective: Vandana Kramer PGY1 Medicine Progress Note Patient seen and examined at bedside this morning. No acute events reported overnight. Advanced to CLD and tolerating well. Offers no new complaints today. Objective - Vital Signs/Intake and Output Vital Signs (last 24 hours): Temp Pulse Resp BP Pulse Ox 99 F 107 H 18 139/85 92 L 10/11/18 08:08 10/11/18 09:22 10/11/18 08:08 10/11/18 09:22 10/11/18 08:08 Intake and Output: 10/11/18 10/11/18 06:59 18:59 Intake Total 900 Output Total 1800 Balance -900 - Medications Medications: Current Medications Albuterol/Ipratropium (Duoneb 3 Mg/0.5 Mg (3 Ml) Ud) 3 ml IH Q4H PRN PRN Reason: Shortness of Breath Albuterol/Ipratropium (Duoneb 3 Mg/0.5 Mg (3 Ml) Ud) 3 ml IH [id number] [facility] Last Admin: 10/11/18 13:13 Dose: 3 ml Aspirin (Aspirin Chewable) 81 mg PO DAILY [facility] Last Admin: 10/11/18 09:20 Dose: 81 mg Atorvastatin Calcium (Lipitor) 40 mg PO DIN [facility] Last Admin: 10/10/18 19:00 Dose: Not Given Bupropion HCl (Wellbutrin Sr 150 Mg) 150 mg PO DAILY [facility] Last Admin: 10/11/18 09:21 Dose: 150 mg Folic Acid (Folic Acid) 1 mg PO DAILY [facility] Last Admin: 10/11/18 09:22 Dose: 1 mg Heparin Sodium (Porcine) (Heparin) 5,000 units SC Q8 [facility]; Protocol Last Admin: 10/11/18 05:29 Dose: 5,000 units Dextrose/Sodium Chloride (Dextrose 5%/0.45% Ns 1000 Ml) 1,000 mls @ 75 mls/hr IV .[id number] [facility] Last Admin: 10/11/18 12:51 Dose: 75 mls/hr Insulin Human Lispro (Humalog Low) 0 units SC ACHS [facility]; Protocol Last Admin: 10/11/18 11:24 Dose: Not Given Levetiracetam (Keppra) 500 mg PO Q12 [facility] Last Admin: 10/11/18 09:21 Dose: 500 mg Metoprolol Tartrate (Lopressor) 25 mg PO DAILY [facility] Last Admin: 10/11/18 09:22 Dose: 25 mg Pantoprazole Sodium (Protonix Inj) 40 mg IVP DAILY [facility] Last Admin: 10/11/18 09:21 Dose: 40 mg - Labs Labs: 10/11/18 07:32 10/11/18 13:28 PT 14.8 SECONDS (9.4-12.5) H 10/09/18 12:45 INR 1.31 10/09/18 12:45 APTT 34.4 Seconds (26.9-38.3) 10/09/18 12:45 - Constitutional Appears: Well, Non-toxic, No Acute Distress, Chronically Ill - Head Exam Head Exam: ATRAUMATIC, NORMAL INSPECTION - Eye Exam Eye Exam: EOMI, Normal appearance, PERRL - ENT Exam ENT Exam: Mucous Membranes Moist, Normal Exam, Normal Oropharynx - Neck Exam Neck Exam: Full ROM, Normal Inspection - Respiratory Exam Respiratory Exam: Decreased Breath Sounds, NORMAL BREATHING PATTERN. absent: Wheezes, Respiratory Distress, rubs - Cardiovascular Exam Cardiovascular Exam: RRR, +S1, +S2 - GI/Abdominal Exam GI & Abdominal Exam: Soft, Normal Bowel Sounds. absent: Distended, Tenderness - Extremities Exam Extremities Exam: Full ROM, Normal Inspection - Back Exam Back Exam: NORMAL INSPECTION. absent: tenderness - Neurological Exam Neurological Exam: Alert, Awake. absent: Motor Sensory Deficit - Skin Skin Exam: Dry, Warm Assessment and Plan - Assessment and Plan (Free Text) Assessment: 78 year old male with a PMH of DM2, extensive tobacco use, COPD, EtOH use, and CVA who is admitted for work-up of dysphagia w/ solid foods (not liquids) and associated weight loss. Patient is tolerating liquid diet well at this time, but will require speech pathologist evaluation to r/o neurologic etiology of dysphagia given his hx CVA. Given specific dysphagia with solid foods and hx of tobacco abuse, malignancy needs to be considered. ARABELLA is improving w/ IVF hydration. Plan: Dypshagia - advanced to CLD today, tolerating well - GI on consult, Dr. Sam - CTAP 10/10 shows moderate hiatal hernia, distal esophageal wall thickening, GERD - Soft Tissue Neck CT shows cervical spondylosis anteriorly, mild esophagitis, pulmonary emphysema - Aspiration precautions, elevate head of bed - no prior endoscopic evaluations - TSH reviewed, normal - A1C ordered Abdominal Aortic Aneurysm - IR on consult, Dr. Bullock Hypokalemia - repleted, resolved - monitor ARABELLA, likely pre-renal - resolved - started on CLD, so NS will be decreased - IVF rate decreased to 75cc - will bladder scan due to hx of urinary retention - blood and urine cultures pending COPD, improved - duonebs claudine and prn PPX -DVT ppx Patient seen and case discussed with attending, Dr. Gillette <Joy Gillette - Last Filed: 10/11/18 16:28> Objective - Vital Signs/Intake and Output Vital Signs (last 24 hours): Temp Pulse Resp BP Pulse Ox 99 F 107 H 18 139/85 92 L 10/11/18 08:08 10/11/18 09:22 10/11/18 08:08 10/11/18 09:22 10/11/18 08:08 Intake and Output: 10/11/18 10/11/18 06:59 18:59 Intake Total 900 Output Total 1800 Balance -900 - Medications Medications: Current Medications Albuterol/Ipratropium (Duoneb 3 Mg/0.5 Mg (3 Ml) Ud) 3 ml IH Q4H PRN PRN Reason: Shortness of Breath Albuterol/Ipratropium (Duoneb 3 Mg/0.5 Mg (3 Ml) Ud) 3 ml IH [id number] [facility] Last Admin: 10/11/18 13:13 Dose: 3 ml Aspirin (Aspirin Chewable) 81 mg PO DAILY [facility] Last Admin: 10/11/18 09:20 Dose: 81 mg Atorvastatin Calcium (Lipitor) 40 mg PO DIN [facility] Last Admin: 10/10/18 19:00 Dose: Not Given Bupropion HCl (Wellbutrin Sr 150 Mg) 150 mg PO DAILY [facility] Last Admin: 10/11/18 09:21 Dose: 150 mg Folic Acid (Folic Acid) 1 mg PO DAILY [facility] Last Admin: 10/11/18 09:22 Dose: 1 mg Heparin Sodium (Porcine) (Heparin) 5,000 units SC Q8 [facility]; Protocol Last Admin: 10/11/18 05:29 Dose: 5,000 units Dextrose/Sodium Chloride (Dextrose 5%/0.45% Ns 1000 Ml) 1,000 mls @ 75 mls/hr IV .[id number] [facility] Last Admin: 10/11/18 12:51 Dose: 75 mls/hr Insulin Human Lispro (Humalog Low) 0 units SC ACHS [facility]; Protocol Last Admin: 10/11/18 11:24 Dose: Not Given Levetiracetam (Keppra) 500 mg PO Q12 [facility] Last Admin: 10/11/18 09:21 Dose: 500 mg Metoprolol Tartrate (Lopressor) 25 mg PO DAILY [facility] Last Admin: 10/11/18 09:22 Dose: 25 mg Pantoprazole Sodium (Protonix Inj) 40 mg IVP DAILY [facility] Last Admin: 10/11/18 09:21 Dose: 40 mg - Labs Labs: 10/11/18 07:32 10/11/18 13:28 PT 14.8 SECONDS (9.4-12.5) H 10/09/18 12:45 INR 1.31 10/09/18 12:45 APTT 34.4 Seconds (26.9-38.3) 10/09/18 12:45 Attending/Attestation - Attestation I have personally seen and examined this patient.: Yes I have fully participated in the care of the patient.: Yes I have reviewed all pertinent clinical information, including history, physical exam and plan: Yes Notes (Text): 10/11/18 16:23 Attending note; Patient seen and examined with resident. Patient is alert and awake. Denies any fevers, chills. Denies any nausea, vomiting. Complaining of poor p.o. intake and dysphagia. Complaining of recent weight loss. Denies any urinary, bowel symptoms. Patient is currently on liquid diet. Patient is a 78 year old male with PMHx COPD, DM II, EtOH, Tobacco use (1-1.5 PPD), CVA (2017; multiple infarcts at R-Parietal, bilateral occipital, and frontal lobes with no residual defects) who presented to the ED because he was sent from his PMD's office (Dr. Perez) for "not looking well". 1. Acute renal failure; resolved. Started on IV fluids Monitor creatinine closely. 2. Dysphagia; continue IV fluids. speech and swallow evaluation appreciated. Patient has significant oropharyngeal dysphagia due to reflux. GI evaluation requested. Soft tissue neck CT is normal. CT abdomen and pelvis showed hiatal hernia, distal esophageal thickening and diabetes within mid and distal esophagus suggesting reflux disease. CT chest showed emphysematous changes and bibasilar atelectasis. Incidental intrarenal aortic aneurysm with mural thrombus noted. Will get vascular evaluation. 3. copd; continue DuoNeb as needed. 4. History of CVA/ dementia; continue Aricept. 5. Active smoking; smoking cessation is strongly advised. 6. Diabetes; diet controlled. Hemoglobin A1c is 7.7. Monitor closely. 7. depression; continue bupropion. PT evaluation appreciated. Home with services recommended. Patient needs GI workup for continuous dysphagia. Upon discharge the patient will follow up with PMD Dr. Perez.
--- NOTE | 2018-10-11 16:28 | CP.PCM.CON ---
<Adrian Arredondo - Last Filed: 10/11/18 16:24> History of Present Illness - History of Present Illness History of Present Illness: GI fellow PGY 4, consult note Scooter Mckeon is a 78-year-old male who presented with dysphagia. He has been having symptoms for over a month now with associated 10 pound weight loss since August. He denies pain with swallowing, abdominal pain, change in bowel movements. Solid foods seem to be more difficult to swallow than liquids. Patient has dentures and reports using them while eating. He has a long history of smoking and alcohol use. He has never had an upper or lower endoscopy in the past. Workup has shown fairly unremarkable labs. Vitals have been stable and afebrile. CT showed moderate hiatal hernia with distal esophageal wall thic kening, questionable liver calcification, 8 mm pancreatic cyst like structure in head of pancreas. It also showed 4.8 cm AAA, infrarenal. Past medical historydementia, COPD, type 2 diabetes, CVA Past surgical historyno major past surgical history Family historyno known GI related cancers. Social historylives with . Quit alcohol and smoking cigarettes one year ago after CVA. 12 point review of systems is negative except for as above. Past Patient History - Infectious Disease Hx of Infectious Diseases: None - Tetanus Immunizations Tetanus Immunization: Unknown - Past Social History Smoking Status: Former Smoker - CARDIAC Hx Cardiac Disorders: Yes Hx Hypertension: Yes - PULMONARY Hx Chronic Obstructive Pulmonary Disease (COPD): Yes - NEUROLOGICAL HX Cerebrovascular Accident: Yes - HEENT Hx HEENT Problems: No - RENAL Hx Chronic Kidney Disease: No - ENDOCRINE/METABOLIC Hx Diabetes Mellitus Type 2: Yes - HEMATOLOGICAL/ONCOLOGICAL Hx Blood Disorders: No - INTEGUMENTARY Hx Dermatological Problems: No - MUSCULOSKELETAL/RHEUMATOLOGICAL Hx Arthritis: Yes - GASTROINTESTINAL Hx Gastrointestinal Disorders: No - GENITOURINARY/GYNECOLOGICAL Hx Genitourinary Disorders: Yes Hx Incontinence: Yes Hx Prostate Problems: Yes - PSYCHIATRIC Hx Psychophysiologic Disorder: Yes Hx Substance Use: No (denies) Other/Comment: Alcohol use (4 beers and 5 shots of bourdon daily) - SURGICAL HISTORY Hx Surgeries: No - ANESTHESIA Hx Anesthesia: No Hx Anesthesia Reactions: No Hx Malignant Hyperthermia: No Meds Allergies/Adverse Reactions: Allergies Allergy/AdvReac Type Severity Reaction Status Date / Time No Known Allergies Allergy Verified 12/02/17 20:47 - Medications Medications: Current Medications Albuterol/Ipratropium (Duoneb 3 Mg/0.5 Mg (3 Ml) Ud) 3 ml IH Q4H PRN PRN Reason: Shortness of Breath Albuterol/Ipratropium (Duoneb 3 Mg/0.5 Mg (3 Ml) Ud) 3 ml IH [id number] [facility] Last Admin: 10/11/18 13:13 Dose: 3 ml Aspirin (Aspirin Chewable) 81 mg PO DAILY [facility] Last Admin: 10/11/18 09:20 Dose: 81 mg Atorvastatin Calcium (Lipitor) 40 mg PO DIN [facility] Last Admin: 10/10/18 19:00 Dose: Not Given Bupropion HCl (Wellbutrin Sr 150 Mg) 150 mg PO DAILY [facility] Last Admin: 10/11/18 09:21 Dose: 150 mg Folic Acid (Folic Acid) 1 mg PO DAILY [facility] Last Admin: 10/11/18 09:22 Dose: 1 mg Heparin Sodium (Porcine) (Heparin) 5,000 units SC Q8 [facility]; Protocol Last Admin: 10/11/18 05:29 Dose: 5,000 units Dextrose/Sodium Chloride (Dextrose 5%/0.45% Ns 1000 Ml) 1,000 mls @ 75 mls/hr IV .[id number] [facility] Last Admin: 10/11/18 12:51 Dose: 75 mls/hr Insulin Human Lispro (Humalog Low) 0 units SC ACHS [facility]; Protocol Last Admin: 10/11/18 11:24 Dose: Not Given Levetiracetam (Keppra) 500 mg PO Q12 [facility] Last Admin: 10/11/18 09:21 Dose: 500 mg Metoprolol Tartrate (Lopressor) 25 mg PO DAILY [facility] Last Admin: 10/11/18 09:22 Dose: 25 mg Pantoprazole Sodium (Protonix Inj) 40 mg IVP DAILY [facility] Last Admin: 10/11/18 09:21 Dose: 40 mg Physical Exam - Constitutional Appears: Non-toxic, No Acute Distress, Chronically Ill - Head Exam Head Exam: ATRAUMATIC, NORMAL INSPECTION - Respiratory Exam Respiratory Exam: Clear to Auscultation Bilateral, NORMAL BREATHING PATTERN - Cardiovascular Exam Cardiovascular Exam: REGULAR RHYTHM, +S1, +S2 - GI/Abdominal Exam GI & Abdominal Exam: Normal Bowel Sounds, Soft. absent: Organomegaly, Tenderness - Neurological Exam Neurological exam: Alert, CN II-XII Intact - Skin Skin Exam: Dry, Warm Results - Vital Signs Recent Vital Signs: Last Vital Signs Temp 99 F 10/11/18 08:08 Pulse 107 H 10/11/18 09:22 Resp 18 10/11/18 08:08 BP 139/85 10/11/18 09:22 Pulse Ox 92 L 10/11/18 08:08 - Labs Result Diagrams: 10/11/18 07:32 10/11/18 13:28 Labs: Laboratory Results - last 24 hr 10/10/18 10/10/18 10/11/18 06:36 21:31 07:32 WBC 9.5 RBC 4.80 Hgb 12.8 L Hct 39.2 L MCV 81.7 MCH 26.7 MCHC 32.7 RDW 14.4 Plt Count 270 MPV 9.7 Sodium Potassium Chloride Carbon Dioxide Anion Gap BUN Creatinine Est GFR ( Amer) Est GFR (Non-Af Amer) POC Glucose (mg/dL) 112 H Random Glucose Hemoglobin A1c 7.7 H Calcium Total Bilirubin AST ALT Alkaline Phosphatase Total Protein Albumin Globulin Albumin/Globulin Ratio 10/11/18 10/11/18 10/11/18 07:32 08:40 11:19 WBC RBC Hgb Hct MCV MCH MCHC RDW Plt Count MPV Sodium 139 Potassium 3.1 L Chloride 103 Carbon Dioxide 27 Anion Gap 12 BUN 8 Creatinine 0.8 Est GFR ( Amer) > 60 Est GFR (Non-Af Amer) > 60 POC Glucose (mg/dL) 100 158 H Random Glucose 104 Hemoglobin A1c Calcium 9.0 Total Bilirubin 0.4 AST 27 ALT 16 Alkaline Phosphatase 83 Total Protein 6.9 Albumin 3.6 Globulin 3.4 Albumin/Globulin Ratio 1.1 10/11/18 13:28 WBC RBC Hgb Hct MCV MCH MCHC RDW Plt Count MPV Sodium 136 Potassium 4.0 Chloride 101 Carbon Dioxide 25 Anion Gap 14 BUN 10 Creatinine 1.1 Est GFR ( Amer) > 60 Est GFR (Non-Af Amer) > 60 POC Glucose (mg/dL) Random Glucose 207 H Hemoglobin A1c Calcium 8.9 Total Bilirubin AST ALT Alkaline Phosphatase Total Protein Albumin Globulin Albumin/Globulin Ratio Assessment & Plan - Assessment and Plan (Free Text) Assessment: #Dysphagia #Unintentional weight loss #Hiatal hernia #Pancreatic cyst, 8 mm #AAA #COPD #Dementia #Type 2 diabetes #CVA Plan: Dysphagia could be multifactorial including natural progressive dementia, poor dentition, hiatal hernia. Must consider neoplastic etiology as well. CT reviewed showing moderate hiatal hernia, esophageal thickening, pancreatic cyst, infrarenal AAA Recommend Consultation for AAA EGD tomorrow. Patient is consented. Nothing by mouth past midnight Case discussed with Dr. Vargas, see attestation - Date & Time Date: 10/11/18 Time: 16:29 <Nani Vargas V - Last Filed: 10/11/18 23:58> Meds - Medications Medications: Current Medications Albuterol/Ipratropium (Duoneb 3 Mg/0.5 Mg (3 Ml) Ud) 3 ml IH Q4H PRN PRN Reason: Shortness of Breath Albuterol/Ipratropium (Duoneb 3 Mg/0.5 Mg (3 Ml) Ud) 3 ml IH [id number] [facility] Last Admin: 10/11/18 19:33 Dose: 3 ml Aspirin (Aspirin Chewable) 81 mg PO DAILY [facility] Last Admin: 10/11/18 09:20 Dose: 81 mg Atorvastatin Calcium (Lipitor) 40 mg PO DIN [facility] Last Admin: 10/11/18 17:22 Dose: 40 mg Bupropion HCl (Wellbutrin Sr 150 Mg) 150 mg PO DAILY [facility] Last Admin: 10/11/18 09:21 Dose: 150 mg Folic Acid (Folic Acid) 1 mg PO DAILY [facility] Last Admin: 10/11/18 09:22 Dose: 1 mg Heparin Sodium (Porcine) (Heparin) 5,000 units SC Q8 [facility]; Protocol Last Admin: 10/11/18 21:32 Dose: Not Given Dextrose/Sodium Chloride (Dextrose 5%/0.45% Ns 1000 Ml) 1,000 mls @ 75 mls/hr IV .[id number] [facility] Last Admin: 10/11/18 21:30 Dose: 75 mls/hr Insulin Human Lispro (Humalog Low) 0 units SC ACHS [facility]; Protocol Last Admin: 10/11/18 21:31 Dose: Not Given Levetiracetam (Keppra) 500 mg PO Q12 [facility] Last Admin: 10/11/18 21:31 Dose: 500 mg Metoprolol Tartrate (Lopressor) 25 mg PO DAILY [facility] Last Admin: 10/11/18 09:22 Dose: 25 mg Pantoprazole Sodium (Protonix Inj) 40 mg IVP DAILY [facility] Last Admin: 10/11/18 09:21 Dose: 40 mg Results - Vital Signs Recent Vital Signs: Last Vital Signs Temp 97.9 F 10/11/18 16:48 Pulse 96 H 10/11/18 16:48 Resp 19 10/11/18 16:48 BP 114/68 10/11/18 16:48 Pulse Ox 93 L 10/11/18 16:48 - Labs Result Diagrams: 10/11/18 07:32 10/11/18 13:28 Labs: Laboratory Results - last 24 hr 10/10/18 10/11/18 10/11/18 06:36 07:32 07:32 WBC 9.5 RBC 4.80 Hgb 12.8 L Hct 39.2 L MCV 81.7 MCH 26.7 MCHC 32.7 RDW 14.4 Plt Count 270 MPV 9.7 Sodium 139 Potassium 3.1 L Chloride 103 Carbon Dioxide 27 Anion Gap 12 BUN 8 Creatinine 0.8 Est GFR ( Amer) > 60 Est GFR (Non-Af Amer) > 60 POC Glucose (mg/dL) Random Glucose 104 Hemoglobin A1c 7.7 H Calcium 9.0 Total Bilirubin 0.4 AST 27 ALT 16 Alkaline Phosphatase 83 Total Protein 6.9 Albumin 3.6 Globulin 3.4 Albumin/Globulin Ratio 1.1 10/11/18 10/11/18 10/11/18 08:40 11:19 13:28 WBC RBC Hgb Hct MCV MCH MCHC RDW Plt Count MPV Sodium 136 Potassium 4.0 Chloride 101 Carbon Dioxide 25 Anion Gap 14 BUN 10 Creatinine 1.1 Est GFR ( Amer) > 60 Est GFR (Non-Af Amer) > 60 POC Glucose (mg/dL) 100 158 H Random Glucose 207 H Hemoglobin A1c Calcium 8.9 Total Bilirubin AST ALT Alkaline Phosphatase Total Protein Albumin Globulin Albumin/Globulin Ratio 10/11/18 10/11/18 16:27 21:12 WBC RBC Hgb Hct MCV MCH MCHC RDW Plt Count MPV Sodium Potassium Chloride Carbon Dioxide Anion Gap BUN Creatinine Est GFR ( Amer) Est GFR (Non-Af Amer) POC Glucose (mg/dL) 231 H 126 H Random Glucose Hemoglobin A1c Calcium Total Bilirubin AST ALT Alkaline Phosphatase Total Protein Albumin Globulin Albumin/Globulin Ratio Attending/Attestation - Attestation I have personally seen and examined this patient.: Yes I have fully participated in the care of the patient.: Yes I have reviewed all pertinent clinical information: Yes Notes (Text): This is an addendum to the GI consult patient reported dictated by the GI fellow. The patient was seen and evaluated along with the fellow ES. Discussed with ICU nursing staff. Patient has a difficulty in swallowing mainly solid food. History of weight loss never had an EGD or colonoscopy evaluation. The patient would benefit from endoscopy to further evaluate. Patient is also edentulous and he does not use dentures all the time. This patient increased risk of aspiration Patient would benefit from endoscopy evaluation will be scheduled for the procedure tomorrow 10/11/18 23:54
[2018-10-12] MEDS: Albuterol-Ipratrop 3 mg / 0.5 (3 ml) UD IH SCH ×2 (01:09→08:29)
[2018-10-12 06:40] LABS: INR 1.66; IRON 25 ug/dL (45-180); PROTHROMBIN TIME 18.8 SECONDS (9.4-12.5)
[2018-10-12 06:41] LABS: MEAN CELL VOLUME 81.9 fl (80.0-105.0); MEAN CORPUSCULAR HEMOGLOBIN 25.9 pg (25.0-35.0); MEAN CORPUSCULAR HGB CONC 31.7 g/dl (31.0-37.0); MEAN PLATELET VOLUME 10.3 fl (7.0-11.0); RBC 4.63 10^6/uL (3.5-6.1); RED CELL DISTRIBUTION WIDTH 14.6 % (11.5-14.5); WHITE BLOOD COUNT 12.2 10^3/uL (4.5-11.0)
[2018-10-12 06:49] LABS: % IRON SATURATION 13 % (20-55); TOTAL IRON BINDING CAPACITY 183 ug/dL (261-462)
[2018-10-12 07:15] LABS: ALB/GLOB RATIO 0.9 (1.1-1.8); ALT/SGPT 10 U/L (7-56); AST/SGOT 21 U/L (17-59); BLOOD UREA NITROGEN 8 mg/dL (7-21); CALCIUM 8.7 mg/dL (8.4-10.5); GFR NON-AFRICAN AMERICAN > 60
[2018-10-12] MEDS ORDERED: Magnesium Sulfate 2 gm/50 ml 2 GM/50 ML BAG IVPB ONE (07:22)
[2018-10-12] MEDS: Insulin Lispro (humaLOG) LOW Coverage SC SCH ×2 (07:30→18:30)
[2018-10-12] MEDS ORDERED: Magnesium Sulfate 2 gm/50 ml 2 GM/50 ML BAG IVPB STA (07:38)
[2018-10-12] MEDS ORDERED: Phytonadione 10 MG in Sodium Chloride 0.9% 50 ML IV STA (08:26)
[2018-10-12] MEDS: buPROPion SR 150 MG TABLET PO SCH (09:18)
[2018-10-12] MEDS: levETIRAcetam 500 mg/5ml UD cups PO SCH ×2 (09:18→21:30)
[2018-10-12 12:32] LABS: INR 1.56; PROTHROMBIN TIME 17.6 SECONDS (9.4-12.5)
[2018-10-12] MEDS ORDERED: Propofol 10 mg/ml Inj (20 ML) ONE ×2 (14:36→15:06)
[2018-10-12] MEDS ORDERED: Succinylcholine 200 mg/10 ml Inj IV ONE (14:46)
[2018-10-12] MEDS ORDERED: Sodium Chloride 0.9% 1,000 ML IV SCH (15:45)
--- NOTE | 2018-10-12 16:59 | CP.PCM.PN ---
<Kaity Burns - Last Filed: 10/12/18 16:44> Subjective - Date & Time of Evaluation Date of Evaluation: 10/12/18 Time of Evaluation: 11:00 - Subjective Subjective: INTERNAL MEDICINE PROGRESS NOTE FOR DR. WYATT Burns PGY1 Pt seen and examined at bedside today. Pt reports continued dysphagia. He is NPO. He denies other 12 point ROS Objective - Vital Signs/Intake and Output Vital Signs (last 24 hours): Temp Pulse Resp BP Pulse Ox 97.8 F 105 H 24 119/73 96 10/12/18 16:03 10/12/18 16:03 10/12/18 16:03 10/12/18 16:03 10/12/18 16:03 Intake and Output: 10/12/18 10/12/18 06:59 18:59 Intake Total 0 Output Total 1100 Balance -1100 - Medications Medications: Current Medications Albuterol/Ipratropium (Duoneb 3 Mg/0.5 Mg (3 Ml) Ud) 3 ml IH Q4H PRN PRN Reason: Shortness of Breath Aspirin (Aspirin Chewable) 81 mg PO DAILY [facility] Last Admin: 10/12/18 09:21 Dose: Not Given Atorvastatin Calcium (Lipitor) 40 mg PO DIN [facility] Last Admin: 10/11/18 17:22 Dose: 40 mg Bupropion HCl (Wellbutrin Sr 150 Mg) 150 mg PO DAILY [facility] Last Admin: 10/12/18 09:18 Dose: 150 mg Folic Acid (Folic Acid) 1 mg PO DAILY [facility] Last Admin: 10/12/18 09:23 Dose: Not Given Heparin Sodium (Porcine) (Heparin) 5,000 units SC Q8 [facility]; Protocol Last Admin: 10/12/18 05:42 Dose: Not Given Dextrose/Sodium Chloride (Dextrose 5%/0.45% Ns 1000 Ml) 1,000 mls @ 75 mls/hr IV .[id number] [facility] Last Admin: 10/11/18 21:30 Dose: 75 mls/hr Sodium Chloride (Sodium Chloride 0.9%) 1,000 mls @ 100 mls/hr IV .Q10H [facility] Stop: 10/12/18 17:38 Insulin Human Lispro (Humalog Low) 0 units SC ACHS [facility]; Protocol Last Admin: 10/12/18 07:30 Dose: Not Given Levetiracetam (Keppra) 500 mg PO Q12 [facility] Last Admin: 10/12/18 09:18 Dose: 500 mg Metoprolol Succinate (Toprol Xl) 25 mg PO BRK [facility] Metoprolol Tartrate (Lopressor) 25 mg PO ONCE ONE Stop: 10/12/18 20:01 Pantoprazole Sodium (Protonix Inj) 40 mg IVP DAILY [facility] Last Admin: 10/12/18 09:18 Dose: 40 mg - Labs Labs: 10/12/18 06:10 10/12/18 06:10 PT 17.6 SECONDS (9.4-12.5) H 10/12/18 12:15 INR 1.56 10/12/18 12:15 APTT 34.4 Seconds (26.9-38.3) 10/09/18 12:45 - Constitutional Appears: Well, Non-toxic, No Acute Distress, Chronically Ill - Head Exam Head Exam: ATRAUMATIC, NORMAL INSPECTION - Eye Exam Eye Exam: EOMI, Normal appearance, PERRL - ENT Exam ENT Exam: Mucous Membranes Moist, Normal Exam, Normal Oropharynx - Neck Exam Neck Exam: Full ROM, Normal Inspection - Respiratory Exam Respiratory Exam: Decreased Breath Sounds, NORMAL BREATHING PATTERN. absent: Wheezes, Respiratory Distress, rubs - Cardiovascular Exam Cardiovascular Exam: RRR, +S1, +S2 - GI/Abdominal Exam GI & Abdominal Exam: Soft, Normal Bowel Sounds. absent: Distended, Tenderness - Extremities Exam Extremities Exam: Full ROM, Normal Inspection - Back Exam Back Exam: NORMAL INSPECTION. absent: tenderness - Neurological Exam Neurological Exam: Alert, Awake. absent: Motor Sensory Deficit - Skin Skin Exam: Dry, Warm Assessment and Plan - Assessment and Plan (Free Text) Assessment: 78 year old male with a PMH of DM2, extensive tobacco use, COPD, EtOH use, and CVA (2017; multiple infarcts at R-Parietal, bilateral occipital, and frontal l obes with no residual defects) who is admitted for work-up of dysphagia w/ solid foods (not liquids) and associated weight loss. Pt to undergo EGD today Plan: Dypshagia - EGD reveals esophageal foreign body, duodenitis, duodenal ulcer - GI on consult, Dr. Vargas - CTAP 10/10 shows moderate hiatal hernia, distal esophageal wall thickening, GERD - Soft Tissue Neck CT shows cervical spondylosis anteriorly, mild esophagitis, pulmonary emphysema - Aspiration precautions, elevate head of bed - no prior endoscopic evaluations - TSH reviewed, normal - A1C 7.7 New onset a-fib -post EGD, pt found to be in A-fib -continue home metoprolol succinate -will hold anticoagulation d/t duodenal ulcer -echo pending -cardiology consulted Leukocytosis -afebrile, asymptomatic -Will d/c claudine duoneb as pt not in exacerbation -D/c montanez once pt passes voiding trial Abdominal Aortic Aneurysm - IR on consult, Dr. Bullock Hypokalemia - repleted along with Mg COPD, improved - duonebs claudine and prn DVT/GI PPx: SCD/PTX Patient seen and case discussed with attending, Dr. Wyatt Burns PGY1 <Farrah Schneider - Last Filed: 10/12/18 21:53> Objective - Vital Signs/Intake and Output Vital Signs (last 24 hours): Temp Pulse Resp BP Pulse Ox 97.3 F L 103 H 20 115/64 94 L 10/12/18 18:18 10/12/18 21:23 10/12/18 18:18 10/12/18 21:23 10/12/18 18:18 - Medications Medications: Current Medications Albuterol/Ipratropium (Duoneb 3 Mg/0.5 Mg (3 Ml) Ud) 3 ml IH Q4H PRN PRN Reason: Shortness of Breath Amiodarone HCl (Cordarone) 200 mg PO DAILY [facility] Amiodarone HCl (Cordarone) 400 mg PO TID [facility] Stop: 10/13/18 23:59 Aspirin (Aspirin Chewable) 81 mg PO DAILY [facility] Last Admin: 10/12/18 09:21 Dose: Not Given Atorvastatin Calcium (Lipitor) 40 mg PO DIN [facility] Last Admin: 10/12/18 18:54 Dose: 40 mg Bupropion HCl (Wellbutrin Sr 150 Mg) 150 mg PO DAILY [facility] Last Admin: 10/12/18 09:18 Dose: 150 mg Folic Acid (Folic Acid) 1 mg PO DAILY [facility] Last Admin: 10/12/18 09:23 Dose: Not Given Dextrose/Sodium Chloride (Dextrose 5%/0.45% Ns 1000 Ml) 1,000 mls @ 75 mls/hr IV .[id number] [facility] Last Admin: 10/12/18 18:53 Dose: 75 mls/hr Heparin Sodium/Sodium Chloride (Heparin 33427 Units/250ml 1/2 Normal Saline) 25,000 units in 250 mls @ 13.39 mls/hr IV .[id number] PRN; Protocol PRN Reason: ADJUST RATE PER PROTOCOL Insulin Human Lispro (Humalog Low) 0 units SC ACHS [facility]; Protocol Last Admin: 10/12/18 18:30 Dose: Not Given Levetiracetam (Keppra) 500 mg PO Q12 [facility] Last Admin: 10/12/18 21:30 Dose: 500 mg Metoprolol Succinate (Toprol Xl) 25 mg PO BRK [facility] Pantoprazole Sodium (Protonix Inj) 40 mg IVP BID [facility] Sucralfate (Carafate Oral Susp) 1 gm PO 0600,1600 [facility] Tamsulosin HCl (Flomax) 0.4 mg PO DAILY [facility] - Labs Labs: 10/12/18 06:10 10/12/18 06:10 PT 17.6 SECONDS (9.4-12.5) H 10/12/18 12:15 INR 1.56 10/12/18 12:15 APTT 34.4 Seconds (26.9-38.3) 10/09/18 12:45 Attending/Attestation - Attestation I have personally seen and examined this patient.: Yes I have fully participated in the care of the patient.: Yes I have reviewed all pertinent clinical information, including history, physical exam and plan: Yes Notes (Text): Patient seen and examined by me with resident at 9:30AM on 10/12/18. Case including HPI, physical exam, and assessment and plan discussed with resident. Agree with above with following additions/corrections. Patient is a 78-year-old male with past medical history significant for COPD, type 2 diabetes, alcohol abuse, tobacco abuse, and CVA that presented to the emergency room with difficulty swallowing and pain with swallowing for 4 days. Patient states he is feeling ok. States that he is feeling hungry. He is unsure if he is still having difficulty swallowing as he has not tried to eat. No nausea or vomiting. He denies any chest pain or shortness of breath. No headaches or dizziness. No fevers or chills. No diarrhea. No pain at montanez catheter site. Physical exam: General: Awake and alert sitting up in bed in no acute distress HEENT: Normocephalic, atraumatic. Extraocular muscles intact, pupils equal and reactive, no scleral icterus. Oropharynx is pink and moist. No pharyngeal erythema or exudate appreciated. Neck is supple. Cardiovascular: Regular rhythm. Normal S1 and S2. No murmurs, rubs, or gallops appreciated Pulmonary: Normal respiratory effort. No rhonchi, rales, or wheezing appreciated. Gastrointestinal: Soft, nondistended. Nontender. Positive bowel sounds all 4 quadrants. No guarding. Musculoskeletal: Moves all extremities. No calf tenderness. No edema appreciated : Montanez catheter in place with light yellow urine output Central nervous system: Awake and alert. Dermatologic: Skin warm and dry. Assessment and plan: Patient is a 78-year-old male with past medical history significant for COPD, type 2 diabetes, alcohol abuse, tobacco abuse, and CVA that presented to the emergency room with difficulty swallowing and pain with swallowing for 4 days. 1. Dysphagia. Hiatal hernia. Pancreatic cyst. GI recommendations appreciated. Patient for EGD today. Continue IV protonix. Rule out neoplastic etiology.Neck CT without contrast per radiologist showed no overt finding to correspond to cli nical history of dysphagia other than mild to moderate multilevel cervical spondylosis anteriorly; no definite supra or infrahyoid neck mass appreciable in the unenhanced CT; mild esophagitis of visualized esophagus is not excluded; gross calcified atherosclerosis at the distal left CCA/carotid bulb again identified in patient with occluded left ICA; stable right apical pulmonary fibrosis incidentally noted as well as pulmonary emphysema. CT chest/abd/pelvis per radiologist showed moderate hiatal hernia, distal esophageal wall thickening, debris within the mid to distal esophagus consistent with gastroesophageal reflux; enlarged prostate gland; longstanding curvilinear nonspecific hypodensity within posterior left hepatic lobe with associated calcification peripherally; 8mm hypodensity at pancreatic head/uncinate, too small to characterize possibly cyst; emphysematous changes, scattered regions of atelectasis/scarring bilaterally; infrarenal abdominal aortic aneurysm measures 3.9 x 3.9 x 4.8 cm associated with dense mural thrombus. 2. Infrarenal AAA with mural thrombus. IR consulted, pending recommendations. 3. ARABELLA. Resolved. 4. DM2. Continue insulin sliding scale. Continue to monitor accuchecks. HgbA1C 7.7. 5. BPH/urinary retention. Started on Flomax. PSA pending. Voiding trials prior to dc. 6. COPD. Continue nebulizer treatments as needed. Counseled on tobacco cessation. 7. Anemia. Low iron and % saturation. Ferritin pending. EGD today. 8. Dementia. Home Aricept held for now. 9. Seizure disorder. Continue home Keppra. 10. History of CVA. Continue ASA and Lipitor. 11. Hypertension. Continue Toprol XL 12. Depression. Continue Wellbutrin 13. Tobacco abuse. Counseled on cessation Addendum: Patient found to have atrial fibrillation after EGD. Discussed with Dr. Canales and Dr. Vargas. Patient found to have Grade D esophageal ulcer on EGD. Per Dr. Canales, will hold heparin drip and ASA for now. Patient will be placed on amiodarone by Dr. Canales. 2D echo ordered.
--- NOTE | 2018-10-12 17:01 | CP.PCM.PCO ---
Additional Comments - Additional Comments Additional Comments: Admitted with dysphagia, wt loss over 10 pounds since August EGD today revealed foreign body in esophagus, removed. Advance diet as per gI. Cont to monitor , pT eval pending.
[2018-10-12] MEDS ORDERED: Heparin25000 units/250ml 1/2NS 25,000 UNITS/250 ML BAG IV PRN (17:43)
--- NOTE | 2018-10-12 17:54 | CARD ---
APPROVED REPORT Date of service: 10/12/2018 EKG Measurement Heart [id number] <Conclusion> Atrial fibrillation Low voltage QRS Abnormal ECG
[2018-10-12] MEDS: Dextrose 5%/0.45% NS 1,000 ML IV SCH (18:53)
[2018-10-12] MEDS ORDERED: Amiodarone 150 mg/D5W 100 ml 150 MG/100 ML BAG IVPB ONE (19:05)
[2018-10-13] MEDS: Insulin Lispro (humaLOG) LOW Coverage SC SCH ×5 (00:59→21:55)
--- NOTE | 2018-10-13 02:57 | CON ---
DATE: 10/12/2018 CONSULT SERVICE: Cardiology. REASON FOR CONSULTATION: AFib, cardiac evaluation, history of CVA, history of alcohol abuse, history of AAA, and possible mural thrombus. BRIEF CLINICAL HISTORY: This is a 78-year-old male with past medical history significant for alcohol abuse, COPD, diabetes, hypertension, hyperlipidemia, history of CVA in 2017 multiple, history of paroxysmal atrial fibrillation, alcohol abuse, and admitted with GI bleed. The patient underwent endoscopy and found to be in AFib. Admitting EKG was normal sinus with APCs. Later on, the patient went into AFib after endoscopy. The patient had a CAT scan of the abdomen and pelvis on admission 10/10/2018 that revealed abdominal aortic aneurysm, infrarenal 3.9 x 3.9 x 4.8 cm dimension associated with dense mural thrombus. The patient denies any chest pain, shortness of breath, or any palpitations. PAST MEDICAL HISTORY: Significant for as mentioned history of CVA and difficulty in swallowing. History of COPD, history of diabetes, history of alcohol abuse, history of tobacco abuse quit 2 years ago, history of CVA in 2017, multiple infarct in right parietal lobe, and bilateral occipital lobe, history of occlusion of carotid artery as well. 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 Seen by neurologist and also treatment only aspirin was recommended last because of possibly of the patient's lifestyle. MRI of the brain dated 12/2017 showed multifocal cerebral infarct in multiple focal area in the distribution of bilateral middle cerebral artery, left anterior cerebral artery and bilateral posterior cerebral artery suspicious for thromboembolic stroke above and beyond the left ICA occlusion. PREVIOUS CARDIAC WORKUP FOLLOWS: The patient had an echocardiography 12/06/2017 that shows normal LV function, normal wall motion, no mitral valve regurgitation, no tricuspid regurgitation dated 12/06/[address] Salcido. MRI of the brain as mentioned dated 12/05/2017 as mentioned above. SOCIAL HISTORY: Quit smoking. Quit drinking 2 year ago. CURRENT MEDICATIONS: The patient is taking Keppra 500 mg twice a day, metoprolol 25 mg twice a day, folic acid, Aricept, atorvastatin, aspirin, and albuterol. ALLERGIES: NO KNOWN DRUG ALLERGIES. REVIEW OF SYSTEMS: As per HPI. PHYSICAL EXAMINATION: VITAL SIGNS: As follows; temperature afebrile, heart rate 90, and blood pressure 182/76. HEENT: PERRLA. Extraocular muscles intact. NECK: Supple. No carotid bruit. No thyromegaly. CHEST: Clear to auscultation. HEART: S1 and S2 regular. ABDOMEN: Soft. EXTREMITIES: Clubbing and cyanosis is negative. LABORATORY DATA: Blood workup; WBC 12.2, hemoglobin 12, hematocrit 37.9, and platelet count 258. Chemistry shows sodium 137, potassium 3.3, chloride 103, carbon dioxide 27, anion gap of 11, BUN 8, and creatinine 1. EKG shows normal sinus APCs. Telemetry shows atrial fibrillation. IMPRESSION AND PLAN: New onset of atrial fibrillation, history of alcohol abuse, history of tobacco abuse, history of cerebrovascular accident, history of preserved left ventricular function last echo, admitted with gastrointestinal bleed. Endoscopy shows gastritis. Cardiology consult was called for atrial fibrillation as well as abdominal CAT shows mural thrombus with abdominal aortic aneurysm. Ideally, the patient would be on anticoagulation. Discussed with Dr. Schneider, but since I discussed with Gastroenterology, the patient is at high risk for gastrointestinal bleeding, so we will observe. We will start IV amiodarone, low-dose beta-veena, hope the patient get converted, so does not need to be long-term anticoagulation. We will further wait for official readings of the CAT scan of the abdomen to see if the patient organized thrombus does not need anticoagulation, but if the patient is infrarenal fresh thrombus, we will consider anticoagulation after the gastrointestinal issues resolve. We will start amiodarone 400 mg p.o. t.i.d. from today, from tomorrow I will get one dose stat 400 and then switch over from Friday 200 mg daily, three doses 400 p.o. t.i.d. tomorrow and one dose stat now. I will give IV amiodarone. Give low-dose beta-veena. We will get echo, TSH, lipid profile, and hemoglobin A1c. We will get the EKG in the morning as well to see the effect of amiodarone the patient converted or not. We will follow with you. Thank you Dr. Schneider for providing us the opportunity in taking care of the patient, Scooter Mckeon. Rachna Canales MD
[2018-10-13] MEDS: Sucralfate 1 gm/10 ml Oral Susp UD PO SCH ×2 (05:24→17:48)
[2018-10-13 05:56] LABS: BASO # 0.02 K/mm3 (0.0-2.0); BASO % 0.2 % (0.0-3.0); EOS # 0.2 (0.0-0.7); EOS % 1.4 % (1.5-5.0); HEMOGLOBIN 11.5 g/dL (14.0-18.0); LYMPH # 1.9 (1.2-3.4); MEAN CELL VOLUME 82.9 fl (80.0-105.0); MEAN CORPUSCULAR HEMOGLOBIN 25.8 pg (25.0-35.0); MEAN CORPUSCULAR HGB CONC 31.2 g/dl (31.0-37.0); MEAN PLATELET VOLUME 9.9 fl (7.0-11.0); MONO # 1.7 (0.1-0.6); MONO % 14.8 % (1.0-6.0); RBC 4.45 10^6/uL (3.5-6.1); RED CELL DISTRIBUTION WIDTH 14.9 % (11.5-14.5); WHITE BLOOD COUNT 11.2 10^3/uL (4.5-11.0)
[2018-10-13 06:01] LABS: HDL CHOLESTEROL 38 mg/dL (29-60)
[2018-10-13 06:12] LABS: LDL CHOLESTEROL < 30 mg/dL (0-129)
[2018-10-13 06:54] VITALS: O2SAT 95
[2018-10-13] MEDS: Metoprolol Succinate 25 mg XL Tab PO SCH (08:22)
[2018-10-13] MEDS ORDERED: Magnesium Sulfate 2 gm/50 ml 2 GM/50 ML BAG IVPB ONE (10:04)
[2018-10-13] MEDS ORDERED: Potassium Chloride 20 mEq ER Tab PO STA (10:04)
[2018-10-13] MEDS: levETIRAcetam 500 mg/5ml UD cups PO SCH ×2 (10:08→21:24)
[2018-10-13] MEDS: buPROPion SR 150 MG TABLET PO SCH (10:09)
[2018-10-13] MEDS ORDERED: Iron Sucrose 100 mg/5 ml Inj IVP ONE ×3 (10:13→18:00)
[2018-10-13] MEDS: Dextrose 5%/0.45% NS 1,000 ML IV SCH ×2 (10:22→23:04)
--- NOTE | 2018-10-13 10:37 | CARD ---
APPROVED REPORT Date of service: 10/13/2018 EKG Measurement Heart [id number] <Conclusion> Atrial fibrillation Abnormal ECG
--- NOTE | 2018-10-13 12:07 | CARD ---
APPROVED REPORT Date of service: 10/13/2018 EXAM: Two-dimensional and M-mode echocardiogram with Doppler and color Doppler. INDICATION Atrial Fibrillation LVFX 2D DIMENSIONS Left Atrium (2D)2.9 (1.6-4.0cm)IVSd1.2 (0.7-1.1cm) LVDd3.6 (3.9-5.9cm)PWd1.3 (0.7-1.1cm) M-Mode DIMENSIONS Aortic Root3.60 (2.2-3.7cm)Aortic Cusp Exc.1.30 (1.5-2.0cm) Aortic Valve AoV Peak Enywceff941.0cm/Kaitlin Peak GR.11mmHg Mitral Valve E/A ratio0.0 TDI E/Lateral E'0.0E/Medial E'0.0 Pulmonary Valve PV Peak Wbitagto73.3cm/sPV Peak Grad.3mmHg Tricuspid Valve TR Peak [id number]/sRAP [id number] Peak Gr.25mmHg [id number] LEFT VENTRICLE The left ventricle is normal size. There is borderline to mild concentric left ventricular hypertrophy. The left ventricular function is normal.EF-55% There is normal LV segmental wall motion. Pt. was in afib at the time of study, diastolic Fx could not be asssessed. No left ventricle thrombus noted on this study. There is no ventricular septal defect visualized. There is no left ventricular aneurysm. There is no mass noted in the left ventricle. RIGHT VENTRICLE The right ventricle is normal size. There is normal right ventricular wall thickness. The right ventricular systolic function is normal. ATRIA The left atrium size is normal. The right atrium size is normal. The interatrial septum is intact with no evidence for an atrial septal defect. AORTIC VALVE The aortic valve is moderately thickened. The aortic valve is mildly to moderately sclerotic. No aortic regurgitation is present. Aortic Sclerosis Vs mild There is no aortic valvular vegetation. MITRAL VALVE The mitral valve is thickened but opens well. Mitral regurgitation is trace. There is no mitral valve stenosis. There is no evidence of mitral valve prolapse. TRICUSPID VALVE The tricuspid valve leaflets are thickened , but open well. There is mild tricuspid regurgitation.RVSP-35 mmof Hg. There is no tricuspid valve stenosis. There is no tricuspid valve prolapse or vegetation. PULMONIC VALVE The pulmonic valve is mildly thickened. There is trace pulmonic valvular regurgitation. There is no pulmonic valvular stenosis. GREAT VESSELS The aortic root is normal in size. The ascending aorta is normal in size. The pulmonary artery is normal. The IVC is normal in size and collapses >50% with inspiration. PERICARDIAL EFFUSION There is no pleural effusion. There is no pericardial effusion. <Conclusion> The left ventricle is normal size. There is borderline to mild concentric left ventricular hypertrophy. The left ventricular function is normal.EF-55% Aortic Sclerosis Vs mild Mitral regurgitation is trace. There is mild tricuspid regurgitation.RVSP-35 mmof Hg. There is trace pulmonic valvular regurgitation. The IVC is normal in size and collapses >50% with inspiration. There is no pericardial effusion.
[2018-10-13 12:09] VITALS: RESP 20
--- NOTE | 2018-10-13 12:10 | CP.PCM.PN ---
<OnofreKaia - Last Filed: 10/13/18 13:00> Subjective - Date & Time of Evaluation Date of Evaluation: 10/13/18 Time of Evaluation: 11:51 - Subjective Subjective: Gastroenterology Fellow/PGY6 Progress Note Patient had no acute events overnight. Noted to have new onset Atrial fibrillation after endoscopy yesterday. Tolerating liquid diet. A 12-point review of systems negative except for as above. Objective - Vital Signs/Intake and Output Vital Signs (last 24 hours): Temp Pulse Resp BP Pulse Ox 97.9 F 88 18 127/76 95 10/13/18 06:00 10/13/18 10:07 10/13/18 06:00 10/13/18 10:07 10/13/18 06:00 Intake and Output: 10/13/18 10/13/18 06:59 18:59 Intake Total 900 Output Total 800 Balance 100 - Medications Medications: Current Medications Albuterol/Ipratropium (Duoneb 3 Mg/0.5 Mg (3 Ml) Ud) 3 ml IH Q4H PRN PRN Reason: Shortness of Breath Albuterol/Ipratropium (Duoneb 3 Mg/0.5 Mg (3 Ml) Ud) 3 ml IH [id number] [facility] Amiodarone HCl (Cordarone) 200 mg PO DAILY [facility] Amiodarone HCl (Cordarone) 400 mg PO TID [facility] Stop: 10/13/18 23:59 Last Admin: 10/13/18 10:07 Dose: 400 mg Aspirin (Aspirin Chewable) 81 mg PO DAILY [facility] Last Admin: 10/12/18 09:21 Dose: Not Given Atorvastatin Calcium (Lipitor) 40 mg PO DIN [facility] Last Admin: 10/12/18 18:54 Dose: 40 mg Bupropion HCl (Wellbutrin Sr 150 Mg) 150 mg PO DAILY [facility] Last Admin: 10/13/18 10:09 Dose: 150 mg Folic Acid (Folic Acid) 1 mg PO DAILY [facility] Last Admin: 10/13/18 10:08 Dose: 1 mg Dextrose/Sodium Chloride (Dextrose 5%/0.45% Ns 1000 Ml) 1,000 mls @ 75 mls/hr IV .[id number] [facility] Last Admin: 10/13/18 10:22 Dose: 75 mls/hr Heparin Sodium/Sodium Chloride (Heparin 42614 Units/250ml 1/2 Normal Saline) 25,000 units in 250 mls @ 13.39 mls/hr IV .[id number] PRN; Protocol PRN Reason: ADJUST RATE PER PROTOCOL Insulin Human Lispro (Humalog Low) 0 units SC ACHS [facility]; Protocol Last Admin: 10/13/18 08:16 Dose: Not Given Levetiracetam (Keppra) 500 mg PO Q12 [facility] Last Admin: 10/13/18 10:08 Dose: 500 mg Metoprolol Succinate (Toprol Xl) 25 mg PO BRK [facility] Last Admin: 10/13/18 08:22 Dose: Not Given Pantoprazole Sodium (Protonix Inj) 40 mg IVP BID [facility] Sucralfate (Carafate Oral Susp) 1 gm PO 0600,1600 [facility] Last Admin: 10/13/18 05:24 Dose: 1 gm Tamsulosin HCl (Flomax) 0.4 mg PO DAILY [facility] Last Admin: 10/13/18 10:08 Dose: 0.4 mg - Labs Labs: 10/13/18 05:00 10/12/18 06:10 PT 17.6 SECONDS (9.4-12.5) H 10/12/18 12:15 INR 1.56 10/12/18 12:15 APTT 34.4 Seconds (26.9-38.3) 10/09/18 12:45 - Constitutional Appears: Non-toxic, No Acute Distress - Head Exam Head Exam: ATRAUMATIC, NORMOCEPHALIC - Eye Exam Eye Exam: EOMI, PERRL. absent: Scleral icterus - ENT Exam ENT Exam: Mucous Membranes Moist, Normal Oropharynx - Neck Exam Neck Exam: Full ROM, Normal Inspection - Respiratory Exam Respiratory Exam: Clear to Ausculation Bilateral. absent: Rales, Rhonchi, Wheezes - Cardiovascular Exam Cardiovascular Exam: Tachycardia, Irregular Rhythm, +S1, +S2. absent: Gallop, Rubs - GI/Abdominal Exam GI & Abdominal Exam: Soft, Normal Bowel Sounds. absent: Distended, Firm, Guarding, Rigid, Tenderness, Organomegaly, Rebound - Extremities Exam Extremities Exam: Normal Inspection - Neurological Exam Neurological Exam: Alert, Awake - Psychiatric Exam Psychiatric exam: Normal Affect, Normal Mood - Skin Skin Exam: Dry, Intact, Normal Color, Warm Assessment and Plan - Assessment and Plan (Free Text) Assessment: 78 year old male with PMH of COPD, Diabetes, and CVA 2017 presenting with dysphagia and unintentional weight loss. CT A/P IV/PO contrast concerning for distal esophageal thickening, 3.9x3.9x 4.8cm infra-renal AAA with thrombus, questionable left hepatic hypodensity with peripheral calcification, and 8mm velazquez creatic head lesion. Plan: POD1 (10/12) EGD- foreign body- food bolus s/p removal, LAGC esophagitis, hiatal hernia, superficial duodenal ulcer -from GI standpoint- benefits of anticoagulation with new-onset Afib and AAA thrombus outweigh risks with no signs of acute GI bleed on endoscopic evaluation -follow up cardiology recommendations -strict compliance to Protonix 40mg ACBD and carafate 1g suspension ACBD -clear liquid diet, advance to soft diet as tolerated -will require repeat EGD in 6-8 weeks for re-evaluation of esophagitis with biopsies to rule out Garcia's/dysplasia and confirm ulcer healing -will follow clinical course <Nani Vargas V - Last Filed: 10/13/18 22:38> Objective - Vital Signs/Intake and Output Vital Signs (last 24 hours): Temp Pulse Resp BP Pulse Ox 97.3 F L 101 H 20 106/66 95 10/13/18 18:00 10/13/18 18:00 10/13/18 18:00 10/13/18 18:00 10/13/18 06:00 Intake and Output: 10/13/18 10/14/18 18:59 06:59 Intake Total 1260 Output Total 1925 Balance -665 - Medications Medications: Current Medications Albuterol/Ipratropium (Duoneb 3 Mg/0.5 Mg (3 Ml) Ud) 3 ml IH Q4H PRN PRN Reason: Shortness of Breath Albuterol/Ipratropium (Duoneb 3 Mg/0.5 Mg (3 Ml) Ud) 3 ml IH [id number] [facility] Last Admin: 10/13/18 19:50 Dose: 3 ml Amiodarone HCl (Cordarone) 200 mg PO DAILY [facility] Amiodarone HCl (Cordarone) 400 mg PO TID [facility] Stop: 10/13/18 23:59 Last Admin: 10/13/18 17:46 Dose: 400 mg Aspirin (Aspirin Chewable) 81 mg PO DAILY [facility] Last Admin: 10/12/18 09:21 Dose: Not Given Atorvastatin Calcium (Lipitor) 40 mg PO DIN [facility] Last Admin: 10/13/18 17:46 Dose: 40 mg Bupropion HCl (Wellbutrin Sr 150 Mg) 150 mg PO DAILY [facility] Last Admin: 10/13/18 10:09 Dose: 150 mg Folic Acid (Folic Acid) 1 mg PO DAILY [facility] Last Admin: 10/13/18 10:08 Dose: 1 mg Dextrose/Sodium Chloride (Dextrose 5%/0.45% Ns 1000 Ml) 1,000 mls @ 75 mls/hr IV .[id number] [facility] Last Admin: 10/13/18 10:22 Dose: 75 mls/hr Heparin Sodium/Sodium Chloride (Heparin 16446 Units/250ml 1/2 Normal Saline) 25,000 units in 250 mls @ 13.39 mls/hr IV .[id number] PRN; Protocol PRN Reason: ADJUST RATE PER PROTOCOL Last Admin: 10/13/18 13:45 Dose: 18 units/kg/hr, 13.39 mls/hr Insulin Human Lispro (Humalog Low) 0 units SC ACHS [facility]; Protocol Last Admin: 10/13/18 21:55 Dose: Not Given Levetiracetam (Keppra) 500 mg PO Q12 [facility] Last Admin: 10/13/18 21:24 Dose: 500 mg Metoprolol Succinate (Toprol Xl) 25 mg PO BRK [facility] Last Admin: 10/13/18 08:22 Dose: Not Given Pantoprazole Sodium (Protonix Inj) 40 mg IVP BID [facility] Last Admin: 10/13/18 17:45 Dose: 40 mg Sucralfate (Carafate Oral Susp) 1 gm PO 0600,1600 [facility] Last Admin: 10/13/18 17:48 Dose: 1 gm Tamsulosin HCl (Flomax) 0.4 mg PO DAILY [facility] Last Admin: 10/13/18 10:08 Dose: 0.4 mg - Labs Labs: 10/13/18 20:16 10/12/18 06:10 PT 15.2 SECONDS (9.4-12.5) H 10/13/18 20:16 INR 1.37 10/13/18 20:16 APTT 136.9 Seconds (26.9-38.3) H* 10/13/18 20:16 Attending/Attestation - Attestation I have personally seen and examined this patient.: Yes I have fully participated in the care of the patient.: Yes Notes (Text): This patient was seen and evaluated here earlier along with the resident. This is an addendum to the progressive complicated by the resident. Patient tolerating the diet no abdominal pain. Patient also found to have a new onset A. fib His original ulceration with with deep there is increased risk of bleeding compared to normal population However there is risk of A. fib not anticoagulated which has to be balanced with GI bleeding risk from weight C esophageal ulceration it is reasonable to restart the anticoagulation with close monitoring 10/13/18 22:31
--- NOTE | 2018-10-13 12:26 | RAD ---
Date of service: 10/13/2018 HISTORY: chest congestion COMPARISON: 10/09/2018 TECHNIQUE: 1 view obtained. FINDINGS: LUNGS: No active pulmonary disease. PLEURA: No significant pleural effusion identified, no pneumothorax apparent. CARDIOVASCULAR: No aortic atherosclerotic calcification present. Normal cardiac size. No pulmonary vascular congestion. OSSEOUS STRUCTURES: No significant abnormalities. VISUALIZED UPPER ABDOMEN: Normal. OTHER FINDINGS: None. IMPRESSION: No active disease.
--- NOTE | 2018-10-13 13:46 | CP.PCM.PN ---
<Kaity Burns - Last Filed: 10/13/18 14:32> Subjective - Date & Time of Evaluation Date of Evaluation: 10/13/18 Time of Evaluation: 11:00 - Subjective Subjective: INTERNAL MEDICINE PROGRESS NOTE FOR DR. BRIANNA Burns PGY1 Pt seen and examined at bedside today. Pt reports he is tolerated his liquid diet. He denies hematemesis, hematochezia, dysphagia symptoms. He otherwise denies 12 point ROS Objective - Vital Signs/Intake and Output Vital Signs (last 24 hours): Temp Pulse Resp BP Pulse Ox 97.8 F 101 H 20 116/74 95 10/13/18 12:08 10/13/18 12:08 10/13/18 12:08 10/13/18 12:08 10/13/18 06:00 Intake and Output: 10/13/18 10/13/18 06:59 18:59 Intake Total 900 Output Total 800 Balance 100 - Medications Medications: Current Medications Albuterol/Ipratropium (Duoneb 3 Mg/0.5 Mg (3 Ml) Ud) 3 ml IH Q4H PRN PRN Reason: Shortness of Breath Albuterol/Ipratropium (Duoneb 3 Mg/0.5 Mg (3 Ml) Ud) 3 ml IH [id number] [facility] Amiodarone HCl (Cordarone) 200 mg PO DAILY [facility] Amiodarone HCl (Cordarone) 400 mg PO TID [facility] Stop: 10/13/18 23:59 Last Admin: 10/13/18 10:07 Dose: 400 mg Aspirin (Aspirin Chewable) 81 mg PO DAILY [facility] Last Admin: 10/12/18 09:21 Dose: Not Given Atorvastatin Calcium (Lipitor) 40 mg PO DIN [facility] Last Admin: 10/12/18 18:54 Dose: 40 mg Bupropion HCl (Wellbutrin Sr 150 Mg) 150 mg PO DAILY [facility] Last Admin: 10/13/18 10:09 Dose: 150 mg Folic Acid (Folic Acid) 1 mg PO DAILY [facility] Last Admin: 10/13/18 10:08 Dose: 1 mg Dextrose/Sodium Chloride (Dextrose 5%/0.45% Ns 1000 Ml) 1,000 mls @ 75 mls/hr IV .[id number] [facility] Last Admin: 10/13/18 10:22 Dose: 75 mls/hr Heparin Sodium/Sodium Chloride (Heparin 08085 Units/250ml 1/2 Normal Saline) 25,000 units in 250 mls @ 13.39 mls/hr IV .[id number] PRN; Protocol PRN Reason: ADJUST RATE PER PROTOCOL Insulin Human Lispro (Humalog Low) 0 units SC ACHS [facility]; Protocol Last Admin: 10/13/18 08:16 Dose: Not Given Levetiracetam (Keppra) 500 mg PO Q12 [facility] Last Admin: 10/13/18 10:08 Dose: 500 mg Metoprolol Succinate (Toprol Xl) 25 mg PO BRK [facility] Last Admin: 10/13/18 08:22 Dose: Not Given Pantoprazole Sodium (Protonix Inj) 40 mg IVP BID [facility] Sucralfate (Carafate Oral Susp) 1 gm PO 0600,1600 [facility] Last Admin: 10/13/18 05:24 Dose: 1 gm Tamsulosin HCl (Flomax) 0.4 mg PO DAILY [facility] Last Admin: 10/13/18 10:08 Dose: 0.4 mg - Labs Labs: 10/13/18 05:00 10/12/18 06:10 PT 17.6 SECONDS (9.4-12.5) H 10/12/18 12:15 INR 1.56 10/12/18 12:15 APTT 34.4 Seconds (26.9-38.3) 10/09/18 12:45 - Constitutional Appears: Well, Non-toxic, No Acute Distress - Head Exam Head Exam: NORMAL INSPECTION, NORMOCEPHALIC - Eye Exam Eye Exam: EOMI, Normal appearance - ENT Exam ENT Exam: Mucous Membranes Moist, Normal Exam - Neck Exam Neck Exam: Normal Inspection - Respiratory Exam Respiratory Exam: Clear to Ausculation Bilateral, NORMAL BREATHING PATTERN - Cardiovascular Exam Cardiovascular Exam: REGULAR RHYTHM, +S1, +S2 - GI/Abdominal Exam GI & Abdominal Exam: Soft, Normal Bowel Sounds. absent: Tenderness - Exam Additional comments: montanez in place draining clear yellow fluid - Extremities Exam Extremities Exam: Normal Inspection. absent: Calf Tenderness - Back Exam Back Exam: NORMAL INSPECTION - Neurological Exam Neurological Exam: Alert, Awake, Oriented x3 - Psychiatric Exam Psychiatric exam: Normal Affect, Normal Mood - Skin Skin Exam: Dry, Intact, Warm Assessment and Plan - Assessment and Plan (Free Text) Assessment: 78 year old male with a PMH of DM2, extensive tobacco use, COPD, EtOH use, and CVA (2017; multiple infarcts at R-Parietal, bilateral occipital, and frontal lobes with no residual defects) who is admitted for work-up of dysphagia w/ solid foods (not liquids) and associated 10lb weight loss. Plan: Dypshagia - POD s/p EGD (10/12/18) revealing esophageal foreign body,LA grade C esophagitis, 1cm hiatal hernia, duodenitis, duodenal ulcer - From GI standpoint- benefits of anticoagulation with new-onset Afib and AAA thrombus outweigh risks with no signs of acute GI bleed on endoscopic evaluation. May restart anticoagulation for new onset A-fib - continue protonix 40mg ACBD & Carafate 1g suspension ACBD - Aspiration precautions, elevate head of bed - clear liquid diet, advance to soft diet as tolerated - no prior endoscopic evaluations - TSH reviewed, normal New onset a-fib -post EGD, pt found to be in A-fib in PACU. Received amiodarone IV & po, metoprolol with goal to convert back to sinus -continue home metoprolol succinate -continue amiodarone per cardiology recs -start heparin drip for anticoagulation, will consider transitioning to oral anticoagulation -continue aspirin -echo pending Iron Deficiency Anemia -Iron, TIBC, % Saturation, Transferrin low - administer venofer today. Repeat iron studies tomorrow Infrarenal Abdominal Aortic Aneurysm w/ mural thrombus - IR on consult, Dr. Bullock, no plans for intervention at this time - will continue anticoagulation - Pt will require repeat CT scan in 6month-1yr for monitoring Hypokalemia - repleted along with Mg COPD, improved - duonebs claudine and prn DM2 -Continue ISS, accucheck -Hgb A1C 7.7 Dementia -continue Aricept Seizure s/o -Continue Keppra Hx of CVA -continue ASA/Lipitor HTN -continue Toprol XL Depression -continue Wellbutrin Tobacco abuse d/o -counselled on cessation BPH -continue flomax -Will d/c montanez today -f/u PSA DVT/GI PPx: Hep/PTX Patient seen and case discussed with attending, Dr. Brianna Burns PGY1 <Graham Andersen - Last Filed: 10/13/18 17:48> Objective - Vital Signs/Intake and Output Vital Signs (last 24 hours): Temp Pulse Resp BP Pulse Ox 97.8 F 114 H 20 123/82 95 10/13/18 12:08 10/13/18 14:00 10/13/18 12:08 10/13/18 13:59 10/13/18 06:00 Intake and Output: 10/13/18 10/13/18 06:59 18:59 Intake Total 900 Output Total 800 Balance 100 - Medications Medications: Current Medications Albuterol/Ipratropium (Duoneb 3 Mg/0.5 Mg (3 Ml) Ud) 3 ml IH Q4H PRN PRN Reason: Shortness of Breath Albuterol/Ipratropium (Duoneb 3 Mg/0.5 Mg (3 Ml) Ud) 3 ml IH [id number] [facility] Last Admin: 10/13/18 14:00 Dose: 3 ml Amiodarone HCl (Cordarone) 200 mg PO DAILY [facility] Amiodarone HCl (Cordarone) 400 mg PO TID [facility] Stop: 10/13/18 23:59 Last Admin: 10/13/18 13:59 Dose: 400 mg Aspirin (Aspirin Chewable) 81 mg PO DAILY [facility] Last Admin: 10/12/18 09:21 Dose: Not Given Atorvastatin Calcium (Lipitor) 40 mg PO DIN [facility] Last Admin: 10/12/18 18:54 Dose: 40 mg Bupropion HCl (Wellbutrin Sr 150 Mg) 150 mg PO DAILY [facility] Last Admin: 10/13/18 10:09 Dose: 150 mg Folic Acid (Folic Acid) 1 mg PO DAILY [facility] Last Admin: 10/13/18 10:08 Dose: 1 mg Dextrose/Sodium Chloride (Dextrose 5%/0.45% Ns 1000 Ml) 1,000 mls @ 75 mls/hr IV .[id number] [facility] Last Admin: 10/13/18 10:22 Dose: 75 mls/hr Heparin Sodium/Sodium Chloride (Heparin 27283 Units/250ml 1/2 Normal Saline) 25,000 units in 250 mls @ 13.39 mls/hr IV .[id number] PRN; Protocol PRN Reason: ADJUST RATE PER PROTOCOL Last Admin: 10/13/18 13:45 Dose: 18 units/kg/hr, 13.39 mls/hr Insulin Human Lispro (Humalog Low) 0 units SC ACHS [facility]; Protocol Last Admin: 10/13/18 13:57 Dose: 1 units Levetiracetam (Keppra) 500 mg PO Q12 [facility] Last Admin: 10/13/18 10:08 Dose: 500 mg Metoprolol Succinate (Toprol Xl) 25 mg PO BRK [facility] Last Admin: 10/13/18 08:22 Dose: Not Given Pantoprazole Sodium (Protonix Inj) 40 mg IVP BID [facility] Sucralfate (Carafate Oral Susp) 1 gm PO 0600,1600 [facility] Last Admin: 10/13/18 05:24 Dose: 1 gm Tamsulosin HCl (Flomax) 0.4 mg PO DAILY [facility] Last Admin: 10/13/18 10:08 Dose: 0.4 mg - Labs Labs: 10/13/18 05:00 10/12/18 06:10 PT 17.6 SECONDS (9.4-12.5) H 10/12/18 12:15 INR 1.56 10/12/18 12:15 APTT 34.4 Seconds (26.9-38.3) 10/09/18 12:45 Attending/Attestation - Attestation I have personally seen and examined this patient.: Yes I have fully participated in the care of the patient.: Yes I have reviewed all pertinent clinical information, including history, physical exam and plan: Yes
[2018-10-13] MEDS: Albuterol-Ipratrop 3 mg / 0.5 (3 ml) UD IH SCH ×2 (14:00→19:50)
--- NOTE | 2018-10-13 15:24 | CP.PCM.APN ---
Subjective - Date & Time of Evaluation Date of Evaluation: 10/13/18 Time of Evaluation: 09:30 - Subjective Subjective: Pt. seen and examined in bed, just returned from echo. Appears to be have expiratory wheezes. Denied chest pain, palpitations. Objective - Vital Signs/Intake and Output Vital Signs (last 24 hours): Temp Pulse Resp BP Pulse Ox 97.8 F 84 20 123/82 95 10/13/18 12:08 10/13/18 13:59 10/13/18 12:08 10/13/18 13:59 10/13/18 06:00 Intake and Output: 10/13/18 10/13/18 06:59 18:59 Intake Total 900 Output Total 800 Balance 100 - Medications Medications: Current Medications Albuterol/Ipratropium (Duoneb 3 Mg/0.5 Mg (3 Ml) Ud) 3 ml IH Q4H PRN PRN Reason: Shortness of Breath Albuterol/Ipratropium (Duoneb 3 Mg/0.5 Mg (3 Ml) Ud) 3 ml IH [id number] [facility] Last Admin: 10/13/18 14:00 Dose: 3 ml Amiodarone HCl (Cordarone) 200 mg PO DAILY [facility] Amiodarone HCl (Cordarone) 400 mg PO TID [facility] Stop: 10/13/18 23:59 Last Admin: 10/13/18 13:59 Dose: 400 mg Aspirin (Aspirin Chewable) 81 mg PO DAILY [facility] Last Admin: 10/12/18 09:21 Dose: Not Given Atorvastatin Calcium (Lipitor) 40 mg PO DIN [facility] Last Admin: 10/12/18 18:54 Dose: 40 mg Bupropion HCl (Wellbutrin Sr 150 Mg) 150 mg PO DAILY [facility] Last Admin: 10/13/18 10:09 Dose: 150 mg Folic Acid (Folic Acid) 1 mg PO DAILY [facility] Last Admin: 10/13/18 10:08 Dose: 1 mg Dextrose/Sodium Chloride (Dextrose 5%/0.45% Ns 1000 Ml) 1,000 mls @ 75 mls/hr IV .[id number] [facility] Last Admin: 10/13/18 10:22 Dose: 75 mls/hr Heparin Sodium/Sodium Chloride (Heparin 81707 Units/250ml 1/2 Normal Saline) 25,000 units in 250 mls @ 13.39 mls/hr IV .[id number] PRN; Protocol PRN Reason: ADJUST RATE PER PROTOCOL Last Admin: 10/13/18 13:45 Dose: 18 units/kg/hr, 13.39 mls/hr Insulin Human Lispro (Humalog Low) 0 units SC ACHS [facility]; Protocol Last Admin: 10/13/18 13:57 Dose: 1 units Levetiracetam (Keppra) 500 mg PO Q12 [facility] Last Admin: 10/13/18 10:08 Dose: 500 mg Metoprolol Succinate (Toprol Xl) 25 mg PO BRK [facility] Last Admin: 10/13/18 08:22 Dose: Not Given Pantoprazole Sodium (Protonix Inj) 40 mg IVP BID [facility] Sucralfate (Carafate Oral Susp) 1 gm PO 0600,1600 [facility] Last Admin: 10/13/18 05:24 Dose: 1 gm Tamsulosin HCl (Flomax) 0.4 mg PO DAILY [facility] Last Admin: 10/13/18 10:08 Dose: 0.4 mg - Labs Labs: 10/13/18 05:00 10/12/18 06:10 PT 17.6 SECONDS (9.4-12.5) H 10/12/18 12:15 INR 1.56 10/12/18 12:15 APTT 34.4 Seconds (26.9-38.3) 10/09/18 12:45 - Constitutional Appears: Non-toxic, No Acute Distress, Chronically Ill - Head Exam Head Exam: NORMOCEPHALIC - Eye Exam Eye Exam: Normal appearance Pupil Exam: NORMAL ACCOMODATION - ENT Exam ENT Exam: Mucous Membranes Moist, Normal Exam - Neck Exam Neck Exam: Full ROM - Respiratory Exam Respiratory Exam: Wheezes - Cardiovascular Exam Cardiovascular Exam: Irregular Rhythm, +S1, +S2, Murmur - GI/Abdominal Exam GI & Abdominal Exam: Soft - Rectal Exam Rectal Exam: Deferred - Exam Exam: absent: Circumcision, NORMAL INSPECTION, Scrotal Swelling, Testicular Tenderness, Uretheral Discharge, Testicular Vertical Lie, Bladder Distension External exam: absent: Ecchymosis, Erythema, Lacerations, Lesions, NORMAL EXTERNAL EXAM, Swelling Speculum exam: absent: Cervical Discharge, Erythema, Foreign Body, Laceration, NORMAL SPECULUM EXAM, Tissue, Vaginal Bleeding, Vaginal Discharge Bimanual exam: absent: Adenexal Mass, Adnexal, Cervical Motion Tendernes, NORMAL BIMANUAL EXAM, Uterine Enlargement, Uterine Tenderness - Extremities Exam Extremities Exam: Full ROM - Back Exam Back Exam: NORMAL INSPECTION - Neurological Exam Neurological Exam: Alert, Awake, Oriented x3 - Psychiatric Exam Psychiatric exam: Normal Affect, Normal Mood - Skin Skin Exam: Dry, Intact, Normal Color, Warm Assessment and Plan - Assessment and Plan (Free Text) Assessment: ITS Impressions Head CT 10/09/18 12:34 IMPRESSION: No acute intracranial findings Chest X-Ray 10/09/18 12:35 IMPRESSION: No active disease. Soft Tissue Neck CT 10/09/18 18:14 IMPRESSION: No overt finding to correspond to clinical history of dysphagia other than [id number] multilevel cervical spondylosis anteriorly. Consider follow-up video fluoroscopic swallowing examination for added evaluation of dysphagia. No definite supra or infrahyoid neck mass appreciable in this unenhanced CT. Mild esophagitis of the visualized esophagus is not excluded. Gross calcified atherosclerosis at distal left CCA/carotid bulb again identified in this patient with clinical history of occluded left ICA. Stable right apical pulmonary fibrosis incidentally noted as well as pulmonary emphysema, as per above. Chest/Abdomen/Pelvis CT 10/10/18 09:09 Impression: Moderate hiatal hernia. Distal esophageal wall thickening. Debris within the mid to distal esophagus consistent with gastroesophageal reflux. Recommend further evaluation with endoscopy. Enlarged prostate gland. Recommend correlation with PSA. Evidence of longstanding curvilinear nonspecific hypodensity within the posterior left hepatic lobe with associated calcification peripherally; this finding is of uncertain etiology. 8 mm hypodensity at the pancreatic head/uncinate, too small to characterize possibly cyst. Emphysematous changes. Scattered regions of atelectasis/scarring bilaterally. Pleural based thickening, right horizontal fissure. Bibasilar atelectasis. Infrarenal abdominal aortic aneurysm measures approximately 3.9 x 3.9 x 4.8 cm (AP by transverse by CC dimensions) with associated dense mural thrombus. Additional findings as above. Chest X-Ray 10/13/18 10:13 IMPRESSION: No active disease. Assessment: 78 yr. old male, with pmh COPD, DM, CVA, Dementia , admitted with dysphagia, wt loss over 10 pounds since August. Plan: 1. Dysphagia, s/p EGD with foreign body removal. 2. New Onset Atrial Fibrillation,post EGD on Heparin IV drip, Metoprolol Echo pending. Cardiology consulted, recs per cardiology Will continue to monitor clinical status and follow.
--- NOTE | 2018-10-13 15:53 | PN ---
DATE: 10/13/2018 REASON FOR CONSULTATION AND FOLLOWUP: AFib, cardiac evaluation, history of CVA, history of alcohol abuse, history of AAA, and possible mural thrombus. Admitted after endoscopy when the patient went into AFib. SUBJECTIVE: The patient denies any chest pain, shortness of breath or any palpitation. PHYSICAL EXAMINATION: GENERAL: Not in apparent distress. VITAL SIGNS: Temperature afebrile, heart rate 88, blood pressure 127/76. HEENT: PERRLA, extraocular muscles intact. NECK: Supple, no carotid bruit or thyromegaly. CHEST: Clear to auscultation. HEART: S1, S2 regular. ABDOMEN: Soft. EXTREMITIES: Clubbing and cyanosis negative. LABORATORY DATA: Blood workup as follows: WBC 11, hemoglobin 11.9, hematocrit 36.9, platelet count 245. Chemistry shows sodium 137, potassium 3.3, chloride 103, carbon dioxide of 27, anion gap of 11, BUN 8, and creatinine 1 as of yesterday. ASSESSMENT AND PLAN: A 78-year-old male with past medical history significant for alcohol abuse, history of tobacco abuse, history of cerebrovascular accident, history of preserved left ventricular function on last echo, admitted with gastrointestinal bleed. Endoscopy showed gastritis. Post endoscopy extended into atrial fibrillation, transferred and admitted to telemetry. The patient also had CAT scan, which showed abdominal aortic aneurysm with a possible mural thrombus. The patient had recent endoscopy done and high risk of bleeding, so no anticoagulation was started. Continue amiodarone for now. Once the patient is cleared from the GI point of view in a day or two, we will start heparin, and if tolerated, we can put low doses of Eliquis. Cover the atrial fibrillation as well as mural thrombus. The patient also will get echo to assess left ventricular function. The patient has history of alcohol abuse, history of cerebrovascular accident. The patient would get benefit with long-term anticoagulation because of the mural thrombus. The patient claims that he has stopped smoking, I think, two years ago. For now, continue low dose of beta-veena and amiodarone and hope he is converted. If does not, then as mentioned, we will continue anticoagulation. We will clear from cardiac point of view to start anticoagulation because yesterday after discussing with GI as per Dr. Schneider, the patient would be at increased risk of bleeding possibly because of gastritis. We will monitor closely hemoglobin and hematocrit, and we will monitor closely. In the interim, continue metoprolol 25 daily as well as amiodarone 400 p.o. three times a day today and then 200 mg from tomorrow. We will repeat echocardiogram in the morning. Thank you Dr. Schneider for providing us the opportunity in taking care of the patient Mike, we will follow with you. Rachna Canales MD
[2018-10-13 20:50] LABS: INR 1.37; PROTHROMBIN TIME 15.2 SECONDS (9.4-12.5)
[2018-10-13 21:03] LABS: PARTIAL THROMBOPLASTIN TIME 136.9 Seconds (26.9-38.3)
--- NOTE | 2018-10-13 21:31 | CON ---
DATE OF CONSULTATION: 10/13/2018 TIME: 10:40 a.m. CHIEF COMPLAINT/HISTORY OF PRESENT ILLNESS: This is a 78-year-old gentleman, who was admitted with dysphasia. CT scans revealed an incidental 4.1 cm infrarenal abdominal aortic aneurysm. The aneurysm is saccular with calcification of the wall. No evidence of rupture is seen. PAST MEDICAL HISTORY: Significant for multiple previous cerebral infarcts with no significant residual. He is an active smoker. He has a history of diabetes and COPD. RECOMMENDATIONS: No intervention is necessary on the 4.1 cm infrarenal aneurysm. The patient should quit smoking. His blood pressure appears to be controlled. A follow-up CT scan is recommended in 6-12 months. Hubert Bullock MD MTDM[facility]
[2018-10-14] MEDS: Albuterol-Ipratrop 3 mg / 0.5 (3 ml) UD IH SCH ×3 (02:40→14:15)
[2018-10-14 04:37] LABS: HEMOGLOBIN 11.4 g/dL (14.0-18.0); MEAN CELL VOLUME 82.8 fl (80.0-105.0); MEAN CORPUSCULAR HEMOGLOBIN 26.2 pg (25.0-35.0); MEAN CORPUSCULAR HGB CONC 31.7 g/dl (31.0-37.0); MEAN PLATELET VOLUME 9.8 fl (7.0-11.0); RBC 4.35 10^6/uL (3.5-6.1); RED CELL DISTRIBUTION WIDTH 14.8 % (11.5-14.5)
[2018-10-14 04:51] LABS: INR 1.41; PROTHROMBIN TIME 15.7 SECONDS (9.4-12.5)
[2018-10-14 04:58] LABS: IRON 118 ug/dL (45-180)
[2018-10-14 05:02] LABS: PARTIAL THROMBOPLASTIN TIME 176.8 Seconds (26.9-38.3)
[2018-10-14 05:10] LABS: % IRON SATURATION 62 % (20-55); TOTAL IRON BINDING CAPACITY 190 ug/dL (261-462)
[2018-10-14] MEDS: Sucralfate 1 gm/10 ml Oral Susp UD PO SCH ×2 (05:36→16:22)
[2018-10-14 05:55] LABS: ALT/SGPT 17 U/L (7-56); AST/SGOT 25 U/L (17-59); BLOOD UREA NITROGEN 6 mg/dL (7-21); CALCIUM 8.5 mg/dL (8.4-10.5); GFR NON-AFRICAN AMERICAN > 60
[2018-10-14] MEDS ORDERED: Potassium Chloride 20 mEq ER Tab PO STA (06:54)
[2018-10-14] MEDS: Insulin Lispro (humaLOG) LOW Coverage SC SCH ×2 (07:46→13:42)
[2018-10-14] MEDS: Metoprolol Succinate 25 mg XL Tab PO SCH (08:23)
[2018-10-14] MEDS ORDERED: Heparin25000 units/250ml 1/2NS 25,000 UNITS/250 ML BAG IV PRN (09:24)
--- NOTE | 2018-10-14 09:44 | CARD ---
APPROVED REPORT Date of service: 10/14/2018 EKG Measurement Heart [id number] <Conclusion> Atrial fibrillation Abnormal ECG
[2018-10-14] MEDS: buPROPion SR 150 MG TABLET PO SCH (10:42)
[2018-10-14] MEDS: levETIRAcetam 500 mg/5ml UD cups PO SCH (10:56)
[2018-10-14 12:12] VITALS: BP 116/76; TEMP 98.8
--- NOTE | 2018-10-14 14:50 | CP.PCM.DIS ---
<Kaity Burns - Last Filed: 10/14/18 16:04> Provider - Provider Date of Admission: 10/10/18 15:51 Attending physician: Farrah Schneider DO Primary care physician: Erum Perez MD Consults: 10/09/18 22:14 Social Work Referral Routine Comment: d/c plan Physician Instructions: Reason For Exam: assess 10/09/18 22:41 Case Management Referral Routine Comment: Physician Instructions: Reason For Exam: Reason for Referral: Discharge Planning 10/10/18 12:49 Consult [Physician Consult] Routine Comment: Consulting Provider: Nani Vargas V Consulting Physician: Nani Vargas V Reason for Consult: dysphagia 10/11/18 15:33 Physician Consult Routine Comment: Consulting Provider: Hubert Bullock Consulting Physician: Hubert Bullock Reason for Consult: abdominal aortic aneurysm 10/12/18 16:55 Cardiology Consult Routine Comment: Consulting Provider: Rachna Canales Consulting Physician: Rachna Canales Reason for Consult: new onset afib, s/p EGD. Duodenal ulcer (?anticoag) Time Spent in preparation of Discharge (in minutes): 45 Hospital Course - Lab Results Lab Results: Micro Results 10/09/18 16:17 Blood-Venous Blood Culture - Preliminary NO GROWTH AFTER 4 DAYS 10/09/18 16:13 Urine,Clean Catch Urine Culture - Final No Growth (<1,000 CFU/ML) Most Recent Lab Values WBC 9.0 10^3/uL (4.5-11.0) 10/14/18 04:25 RBC 4.35 10^6/uL (3.5-6.1) 10/14/18 04:25 Hgb 11.4 g/dL (14.0-18.0) L 10/14/18 04:25 Hct 36.0 % (42.0-52.0) L 10/14/18 04:25 MCV 82.8 fl (80.0-105.0) 10/14/18 04:25 MCH 26.2 pg (25.0-35.0) 10/14/18 04:25 MCHC 31.7 g/dl (31.0-37.0) 10/14/18 04:25 RDW 14.8 % (11.5-14.5) H 10/14/18 04:25 Plt Count 244 10^3/uL (120.0-450.0) 10/14/18 04:25 MPV 9.8 fl (7.0-11.0) 10/14/18 04:25 Neut % (Auto) 66.6 % (50.0-68.0) 10/13/18 05:00 Lymph % (Auto) 17.0 % (22.0-35.0) L 10/13/18 05:00 Payne % (Auto) 14.8 % (1.0-6.0) H 10/13/18 05:00 Eos % (Auto) 1.4 % (1.5-5.0) L 10/13/18 05:00 Baso % (Auto) 0.2 % (0.0-3.0) 10/13/18 05:00 Lymph # (Auto) 1.9 (1.2-3.4) 10/13/18 05:00 Payne # (Auto) 1.7 (0.1-0.6) H 10/13/18 05:00 Eos # (Auto) 0.2 (0.0-0.7) 10/13/18 05:00 Baso # (Auto) 0.02 K/mm3 (0.0-2.0) 10/13/18 05:00 Absolute Neuts (auto) 7.49 (1.4-6.5) H 10/13/18 05:00 PT 15.7 SECONDS (9.4-12.5) H 10/14/18 04:25 INR 1.41 10/14/18 04:25 APTT 78.4 Seconds (26.9-38.3) H 10/14/18 12:00 Sodium 138 mmol/L (132-148) 10/14/18 04:25 Potassium 3.5 mmol/L (3.6-5.0) L 10/14/18 04:25 Chloride 107 mmol/L (98-107) 10/14/18 04:25 Carbon Dioxide 26 mmol/L (21-33) 10/14/18 04:25 Anion Gap 8 (10-20) L 10/14/18 04:25 BUN 6 mg/dL (7-21) L 10/14/18 04:25 Creatinine 0.9 mg/dl (0.8-1.5) 10/14/18 04:25 Est GFR ( Amer) > 60 10/14/18 04:25 Est GFR (Non-Af Amer) > 60 10/14/18 04:25 POC Glucose (mg/dL) 155 mg/dL (65-110) H 10/14/18 11:48 Random Glucose 134 mg/dL (70-110) H 10/14/18 04:25 Hemoglobin A1c 7.7 % (4.2-6.5) H 10/10/18 06:36 Calcium 8.5 mg/dL (8.4-10.5) 10/14/18 04:25 Phosphorus 3.1 mg/dL (2.5-4.5) 10/13/18 05:00 Magnesium 1.8 mg/dL (1.7-2.2) 10/13/18 05:00 Iron 118 ug/dL (45-180) 10/14/18 04:25 TIBC 190 ug/dL (261-462) L 10/14/18 04:25 % Saturation 62 % (20-55) H 10/14/18 04:25 Transferrin 115.93 mg/dL (206-381) L 10/12/18 06:10 Ferritin 556.0 ng/mL 10/12/18 06:10 Total Bilirubin 0.5 mg/dL (0.2-1.3) 10/14/18 04:25 AST 25 U/L (17-59) 10/14/18 04:25 ALT 17 U/L (7-56) 10/14/18 04:25 Alkaline Phosphatase 74 U/L (38-126) 10/14/18 04:25 Ammonia < 9 umol/L (9-33) L 10/09/18 13:09 Lactate Dehydrogenase 416 U/L (333-699) 10/09/18 12:45 Total Creatine Kinase 117 U/L (35-230) 10/09/18 12:45 Troponin I < 0.01 ng/mL 10/09/18 12:45 Total Protein 6.2 g/dL (5.8-8.3) 10/14/18 04:25 Albumin 3.0 g/dL (3.0-4.8) 10/14/18 04:25 Globulin 3.2 gm/dL 10/14/18 04:25 Albumin/Globulin Ratio 1.0 (1.1-1.8) L 10/14/18 04:25 Triglycerides 74 mg/dL (35-160) 10/13/18 05:00 Cholesterol 79 mg/dL (130-200) L 10/13/18 05:00 LDL Cholesterol Direct < 30 mg/dL (0-129) 10/13/18 05:00 HDL Cholesterol 38 mg/dL (29-60) 10/13/18 05:00 Free PSA 0.5 ng/mL 10/12/18 10:30 % Free PSA 21 % (calc) (>25) L 10/12/18 10:30 Total PSA 2.4 ng/mL (< or = 4.0) 10/12/18 10:30 Vitamin B12 532 pg/mL (239-931) 10/12/18 06:10 TSH 3rd Generation 1.39 mIU/mL (0.46-4.68) 10/13/18 05:00 Urine Color Yellow (YELLOW) 10/09/18 16:13 Urine Appearance Slight-cloudy (CLEAR) 10/09/18 16:13 Urine pH 5.5 (4.7-8.0) 10/09/18 16:13 Ur Specific [place] >= 1.030 (1.005-1.035) 10/09/18 16:13 Urine Protein 100 mg/dL (<30 mg/dL) H 10/09/18 16:13 Urine Glucose (UA) Negative mg/dL (NEGATIVE) 10/09/18 16:13 Urine Ketones 15 mg/dL (NEGATIVE) H 10/09/18 16:13 Urine Blood Trace-lysed (NEGATIVE) H 10/09/18 16:13 Urine Nitrate Negative (NEGATIVE) 10/09/18 16:13 Urine Bilirubin Small (NEGATIVE) H 10/09/18 16:13 Urine Urobilinogen 1.0 E.U./dL (<1 E.U./dL) H 10/09/18 16:13 Ur Leukocyte Esterase Negative Jennifer/uL (NEGATIVE) 10/09/18 16:13 Urine RBC 5 - 10 /hpf (0-2) H 10/09/18 16:13 Urine WBC 2 - 5 /hpf (0-6) 04/05/19 16:13 Ur Epithelial Cells 6 - 8 /hpf (0-5) H 10/09/18 16:13 Amorphous Sediment Moderate /hpf (NONE) 10/09/18 16:13 Urine Opiates Screen Negative (NEGATIVE) 10/09/18 16:13 Urine Methadone Screen Negative (NEGATIVE) 10/09/18 16:13 Ur Barbiturates Screen Negative (NEGATIVE) 10/09/18 16:13 Ur Phencyclidine Scrn Negative (NEGATIVE) 10/09/18 16:13 Ur Amphetamines Screen Negative (NEGATIVE) 10/09/18 16:13 U Benzodiazepines Scrn Negative (NEGATIVE) 10/09/18 16:13 U Oth Cocaine Metabols Negative (NEGATIVE) 10/09/18 16:13 U Cannabinoids Screen Negative (NEGATIVE) 10/09/18 16:13 Alcohol, Quantitative < 10 mg/dL (0-10) 10/09/18 12:45 - Hospital Course Hospital Course: Upon Admission 78 y/o M with PMHx COPD, DM II, EtOH, Tobacco use (1-1.5 PPD), CVA (2017; multiple infarcts at R-Parietal, bilateral occipital, and frontal lobes with no residual defects) who presented to the ED because he was sent from his PMD's office (Dr. Perez) for "not looking well" and having difficulty and pain with swallowing. Patient said this is a new issue and has not happened before. He can take in liquids but it is hard for him to take in solids. Patient said he has not been eating much in the past few days either because of this. Patient also has some trouble with urination for the past few days as well. He does endorse a 10 pound weight loss in the past month. Patient denies ever having a colonoscopy or endoscopy. Hospital Course: Several diagnostic tests were performed (listed below). Patient underwent EGD (results below). After patient was transferred to PACU, patient was found to be in afib, confirmed on EKG. Pt was started on IV amiodarone and oral amiodarone, started on heparin drip, and cardiology consult placed. Pt was subsequently brid ge over to eliquis 5mg. Pt also found to be anemic with iron deficiency which was repleted with venofer. Pt felt better after EGD, tolerated clear and soft diet. EGD: Esophageal foreign body, LA grade C esophagitis, 1cm hiatal hernia, duodenitis, duodenal ulcer Echo(10/13): LVEF 55%. RVSP 35mmhg, CT Chest/Abd/Pelvis (10/10): Moderate hiatal hernia. Distal esophageal wall thickening. Debris within the mid to distal esophagus consistent with gastroesophageal reflux. Recommend further evaluation with endoscopy.Enlarged prostate gland. Recommend correlation with PSA. Evidence of longstanding curvilinear nonspecific hypodensity within the posterior left hepatic lobe with associated calcification peripherally; this finding is of uncertain etiology. 8 mm hypodensity at the pancreatic head/uncinate, too small to characterize possibly cyst. Emphysematous changes. Scattered regions of atelectasis/scarring bilaterally. Pleural based thickening, right horizontal fissure. Bibasilar atelectasis. Infrarenal abdominal aortic aneurysm measures approximately 3.9 x 3.9 x 4.8 cm (AP by transverse by CC dimensions) with associated dense mural thrombus. CT Soft Tissue Neck (10/10): No overt finding to correspond to clinical history of dysphagia other than [id number] multilevel cervical spondylosis anteriorly. Consider follow-up video fluoroscopic swallowing examination for added evaluation of dysphagia. No definite supra or infrahyoid neck mass appreciable in this unenhanced CT.Mild esophagitis of the visualized esophagus is not excluded. Gross calcified atherosclerosis at distal left CCA/carotid bulb again identified in this patient with clinical history of occluded left ICA. Stable right apical pulmonary fibrosis incidentally noted as well as pulmonary emphysema, as per above. 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 Occluded L ICA(complete since 2011) Upon Discharge: Pt is doing well, tolerating clear and soft diet. Pt denying complaints. Vital signs are stable. Labs wnl. Pt instructed, in detail, about medication compliance, explained new medications to him, explained risks/benefits of blood thinner to him. Pt in agreement. Pt instructed on outpatient specialist followup and return to ED if new symptoms or symptoms return. Discharge Exam - Head Exam Head Exam: NORMOCEPHALIC - Eye Exam Eye Exam: EOMI, Normal appearance - ENT Exam ENT Exam: Mucous Membranes Moist, Normal Exam - Neck Exam Neck exam: Normal Inspection - Respiratory Exam Respiratory Exam: Decreased Breath Sounds, NORMAL BREATHING PATTERN - Cardiovascular Exam Cardiovascular Exam: REGULAR RHYTHM, +S1, +S2 - GI/Abdominal Exam GI & Abdominal Exam: Normal Bowel Sounds, Soft. absent: Rebound, Rigid - Extremities Exam Extremities exam: normal inspection - Back Exam Back exam: NORMAL INSPECTION. absent: CVA tenderness (L), CVA tenderness (R) - Neurological Exam Neurological exam: Alert, Oriented x3 - Psychiatric Exam Psychiatric exam: Normal Affect, Normal Mood - Skin Skin Exam: Dry, Intact, Warm Discharge Plan - Discharge Medications Prescriptions: Amiodarone [Cordarone] 200 mg PO DAILY #14 tab Apixaban [Eliquis] 5 mg PO BID #28 tab Metoprolol Succinate XL [Toprol XL] 25 mg PO BRK #14 tab Pantoprazole [Protonix EC Tab] 40 mg PO 0600,1600 #14 ect Sucralfate [Carafate Tab] 1 gm PO DAILY #14 tab Tamsulosin [Flomax] 0.4 mg PO DAILY #14 cap - Follow Up Plan Condition: STABLE Disposition: HOME/ ROUTINE Instructions: Acid Reflux (Gastroesophageal Reflux Disease), Adult (DC), Stroke (DC), Foreign Body, Swallowed, Adult (DC), Dysphagia (DC), Upper GI Endoscopy (DC), Aortic Aneurysm (DC), Atrial Fibrillation (DC) Additional Instructions: Please follow up with your primary care doctor, Dr. Perez within 3-5 days of discharge from the hospital Please discuss a repeat CT abdominal aorta within 6-12 months for monitoring for your abdominal aortic aneurysm Please follow up with your Academic Affairs Specialist (stomach doctor), Dr. Vargas, within 3-5 days of discharge. Please discuss a repeat EGD in 6-8 weeks for re- evaluation of esophagitis with biopsies to rule out Garcia's/dysplasia and confirm ulcer healing Please follow up with your Scaleman, Dr. Canales, within 1 week of discharge from the hospital. Please discuss your newly diagnosed atrial fibrillation. Ple ase discuss your abdominal aortic aneurysm If your symptoms return or you experience new symptoms please return to the nearest emergency room Referrals: Erum Buck MD [Primary Care Provider] - Nani Vargas MD [Medical Doctor] - Rachna Canales MD [Staff Provider] - <Graham Andersen - Last Filed: 10/14/18 18:50> Provider - Provider Date of Admission: 10/10/18 15:51 Attending physician: Farrah Schneider DO Primary care physician: Erum Perez MD Consults: 10/09/18 22:14 Social Work Referral Routine Comment: d/c plan Physician Instructions: Reason For Exam: assess 10/09/18 22:41 Case Management Referral Routine Comment: Physician Instructions: Reason For Exam: Reason for Referral: Discharge Planning 10/10/18 12:49 Consult [Physician Consult] Routine Comment: Consulting Provider: Nani Vargas V Consulting Physician: Nani Vargas V Reason for Consult: dysphagia 10/11/18 15:33 Physician Consult Routine Comment: Consulting Provider: Hubert Bullock Consulting Physician: Hubert Bullock Reason for Consult: abdominal aortic aneurysm 10/12/18 16:55 Cardiology Consult Routine Comment: Consulting Provider: Rachna Canales Consulting Physician: Rachna Canales Reason for Consult: new onset afib, s/p EGD. Duodenal ulcer (?anticoag) Hospital Course - Lab Results Lab Results: Micro Results 10/09/18 16:17 Blood-Venous Blood Culture - Final NO GROWTH AFTER 5 DAYS 10/09/18 16:17 Blood-Venous Gram Stain - Final TEST NOT PERFORMED 10/09/18 16:13 Urine,Clean Catch Urine Culture - Final No Growth (<1,000 CFU/ML) Most Recent Lab Values WBC 9.0 10^3/uL (4.5-11.0) 10/14/18 04:25 RBC 4.35 10^6/uL (3.5-6.1) 10/14/18 04:25 Hgb 11.4 g/dL (14.0-18.0) L 10/14/18 04:25 Hct 36.0 % (42.0-52.0) L 10/14/18 04:25 MCV 82.8 fl (80.0-105.0) 10/14/18 04:25 MCH 26.2 pg (25.0-35.0) 10/14/18 04:25 MCHC 31.7 g/dl (31.0-37.0) 10/14/18 04:25 RDW 14.8 % (11.5-14.5) H 10/14/18 04:25 Plt Count 244 10^3/uL (120.0-450.0) 10/14/18 04:25 MPV 9.8 fl (7.0-11.0) 10/14/18 04:25 Neut % (Auto) 66.6 % (50.0-68.0) 10/13/18 05:00 Lymph % (Auto) 17.0 % (22.0-35.0) L 10/13/18 05:00 Payne % (Auto) 14.8 % (1.0-6.0) H 10/13/18 05:00 Eos % (Auto) 1.4 % (1.5-5.0) L 10/13/18 05:00 Baso % (Auto) 0.2 % (0.0-3.0) 10/13/18 05:00 Lymph # (Auto) 1.9 (1.2-3.4) 10/13/18 05:00 Payne # (Auto) 1.7 (0.1-0.6) H 10/13/18 05:00 Eos # (Auto) 0.2 (0.0-0.7) 10/13/18 05:00 Baso # (Auto) 0.02 K/mm3 (0.0-2.0) 10/13/18 05:00 Absolute Neuts (auto) 7.49 (1.4-6.5) H 10/13/18 05:00 PT 15.7 SECONDS (9.4-12.5) H 10/14/18 04:25 INR 1.41 10/14/18 04:25 APTT 78.4 Seconds (26.9-38.3) H 10/14/18 12:00 Sodium 138 mmol/L (132-148) 10/14/18 04:25 Potassium 3.5 mmol/L (3.6-5.0) L 10/14/18 04:25 Chloride 107 mmol/L (98-107) 10/14/18 04:25 Carbon Dioxide 26 mmol/L (21-33) 10/14/18 04:25 Anion Gap 8 (10-20) L 10/14/18 04:25 BUN 6 mg/dL (7-21) L 10/14/18 04:25 Creatinine 0.9 mg/dl (0.8-1.5) 10/14/18 04:25 Est GFR ( Amer) > 60 10/14/18 04:25 Est GFR (Non-Af Amer) > 60 10/14/18 04:25 POC Glucose (mg/dL) 153 mg/dL (65-110) H 10/14/18 16:24 Random Glucose 134 mg/dL (70-110) H 10/14/18 04:25 Hemoglobin A1c 7.7 % (4.2-6.5) H 10/10/18 06:36 Calcium 8.5 mg/dL (8.4-10.5) 10/14/18 04:25 Phosphorus 3.1 mg/dL (2.5-4.5) 10/13/18 05:00 Magnesium 1.8 mg/dL (1.7-2.2) 10/13/18 05:00 Iron 118 ug/dL (45-180) 10/14/18 04:25 TIBC 190 ug/dL (261-462) L 10/14/18 04:25 % Saturation 62 % (20-55) H 10/14/18 04:25 Transferrin 115.93 mg/dL (206-381) L 10/12/18 06:10 Ferritin 556.0 ng/mL 10/12/18 06:10 Total Bilirubin 0.5 mg/dL (0.2-1.3) 10/14/18 04:25 AST 25 U/L (17-59) 10/14/18 04:25 ALT 17 U/L (7-56) 10/14/18 04:25 Alkaline Phosphatase 74 U/L (38-126) 10/14/18 04:25 Ammonia < 9 umol/L (9-33) L 10/09/18 13:09 Lactate Dehydrogenase 416 U/L (333-699) 10/09/18 12:45 Total Creatine Kinase 117 U/L (35-230) 10/09/18 12:45 Troponin I < 0.01 ng/mL 10/09/18 12:45 Total Protein 6.2 g/dL (5.8-8.3) 10/14/18 04:25 Albumin 3.0 g/dL (3.0-4.8) 10/14/18 04:25 Globulin 3.2 gm/dL 10/14/18 04:25 Albumin/Globulin Ratio 1.0 (1.1-1.8) L 10/14/18 04:25 Triglycerides 74 mg/dL (35-160) 10/13/18 05:00 Cholesterol 79 mg/dL (130-200) L 10/13/18 05:00 LDL Cholesterol Direct < 30 mg/dL (0-129) 10/13/18 05:00 HDL Cholesterol 38 mg/dL (29-60) 10/13/18 05:00 Free PSA 0.5 ng/mL 10/12/18 10:30 % Free PSA 21 % (calc) (>25) L 10/12/18 10:30 Total PSA 2.4 ng/mL (< or = 4.0) 10/12/18 10:30 Vitamin B12 532 pg/mL (239-931) 10/12/18 06:10 TSH 3rd Generation 1.39 mIU/mL (0.46-4.68) 10/13/18 05:00 Urine Color Yellow (YELLOW) 10/09/18 16:13 Urine Appearance Slight-cloudy (CLEAR) 10/09/18 16:13 Urine pH 5.5 (4.7-8.0) 10/09/18 16:13 Ur Specific [place] >= 1.030 (1.005-1.035) 10/09/18 16:13 Urine Protein 100 mg/dL (<30 mg/dL) H 10/09/18 16:13 Urine Glucose (UA) Negative mg/dL (NEGATIVE) 10/09/18 16:13 Urine Ketones 15 mg/dL (NEGATIVE) H 10/09/18 16:13 Urine Blood Trace-lysed (NEGATIVE) H 10/09/18 16:13 Urine Nitrate Negative (NEGATIVE) 10/09/18 16:13 Urine Bilirubin Small (NEGATIVE) H 10/09/18 16:13 Urine Urobilinogen 1.0 E.U./dL (<1 E.U./dL) H 10/09/18 16:13 Ur Leukocyte Esterase Negative Jennifer/uL (NEGATIVE) 10/09/18 16:13 Urine RBC 5 - 10 /hpf (0-2) H 10/09/18 16:13 Urine WBC 2 - 5 /hpf (0-6) 10/09/18 16:13 Ur Epithelial Cells 6 - 8 /hpf (0-5) H 10/09/18 16:13 Amorphous Sediment Moderate /hpf (NONE) 10/09/18 16:13 Urine Opiates Screen Negative (NEGATIVE) 10/09/18 16:13 Urine Methadone Screen Negative (NEGATIVE) 10/09/18 16:13 Ur Barbiturates Screen Negative (NEGATIVE) 10/09/18 16:13 Ur Phencyclidine Scrn Negative (NEGATIVE) 10/09/18 16:13 Ur Amphetamines Screen Negative (NEGATIVE) 10/09/18 16:13 U Benzodiazepines Scrn Negative (NEGATIVE) 10/09/18 16:13 U Oth Cocaine Metabols Negative (NEGATIVE) 10/09/18 16:13 U Cannabinoids Screen Negative (NEGATIVE) 10/09/18 16:13 Alcohol, Quantitative < 10 mg/dL (0-10) 10/09/18 12:45 Attending/Attestation - Attestation I have personally seen and examined this patient.: Yes I have fully participated in the care of the patient.: Yes I have reviewed all pertinent clinical information, including history, physical exam and plan: Yes Notes (Text): Patient seen and examined with the residents, agree with above Started on NOAC with Eliquis for the above indications, explained risks and benefits of anticoagulation with Eliquis and patient agrees with therapy. Will discharge and have strict outpt follow up.
[2018-10-14 15:06] VITALS: PULSE 97
[2018-10-14] MEDS ORDERED: Pantoprazole 40 mg EC Tab PO SCH (16:00)
--- NOTE | 2018-10-14 23:12 | PN ---
DATE: 10/14/2018 REASON FOR CONSULTATION: Followup, AFib, cardiac evaluation, history of CVA, history of alcohol abuse, history of AAA, possible mural thrombus. Admitted after endoscopy when the patient went into AFib. SUBJECTIVE: The patient denies any chest pain, shortness of breath, or any palpitation. PHYSICAL EXAMINATION: As follows: VITAL SIGNS: Temperature afebrile, heart rate 97, blood pressure 116/73. GENERAL: The patient is not in any apparent distress. HEENT: PERRLA. Extraocular muscles intact. NECK: Supple. No carotid bruit. No thyromegaly. CHEST: Clear to auscultation. HEART: S1 and S2, regular. ABDOMEN: Soft. EXTREMITIES: Clubbing and cyanosis are negative. LABORATORY DATA: Blood workup as follows: WBC 19, hemoglobin 11.8, hematocrit 36, and platelet count 244. Chemistry shows sodium 130, potassium 3.5, chloride 103, carbon dioxide 26, anion gap of 8, BUN 6 and creatinine 0.9. IMPRESSION AND PLAN: A 78-year-old male with past medical history significant for alcohol abuse, history of tobacco abuse, history of cerebrovascular accident, history of preserved left ventricular function by echocardiogram. Admitted with gastrointestinal bleed. Endoscopy showed gastritis. Post-endoscopy, the patient went into atrial fibrillation and transferred to the telemetry. The patient had a CAT scan finding of abdominal aortic aneurysm with a possible mural thrombus. The patient's recent endoscopy showed no active bleeding, but gastritis, so the patient's anticoagulation was held. The patient is continued on amiodarone. The patient converted with the patient remained in atrial fibrillation. Intravenous heparin is started. The patient is tolerating it and no episode of gastrointestinal bleeding noted. The patient's hemoglobin and hematocrit remain stable, so we will start low dose of Eliquis 5 mg by mouth twice a day and if tolerated, we will continue to prevent a stroke from atrial fibrillation as well as helping thrombus in the descending aorta, ascending aorta with mural thrombus. Discussed at length. We will follow with you. Thank you Dr. Dillard for providing us the opportunity in taking care of the patient, Scooter Mckeon. Rachna Canales MD
== END 2018-10-14 17:00 | disposition home or self-care (01) | DRG 392 ==
LOC: ED 12:13 → ERH 16:45 → 3RNO 18:42 → OBSVTOIN 10-10 15:51 → 2RNO 10-12 18:24
PROVIDERS: ADMIT Internal Medicine; ATTEND Hospitalist
PROC: 3E0F7GC Introduction of Other Therapeutic Substance into Respiratory Tract, Via Natural or Artificial Opening (ICD-10-PCS; 2018-10-10)
PROC: 0DC58ZZ Extirpation of Matter from Esophagus, Via Natural or Artificial Opening Endoscopic (ICD-10-PCS; principal; 2018-10-12 08:30)
DX: K21.0 Gastro-esophageal reflux disease with esophagitis (principal); N17.9 Acute kidney failure, unspecified; K22.10 Ulcer of esophagus without bleeding; K86.2 Cyst of pancreas; J98.11 Atelectasis; T18.128A Food in esophagus causing other injury, initial encounter; R13.12 Dysphagia, oropharyngeal phase; E86.0 Dehydration; F10.10 Alcohol abuse, uncomplicated; F17.200 Nicotine dependence, unspecified, uncomplicated; J44.9 Chronic obstructive pulmonary disease, unspecified; I10 Essential (primary) hypertension; F03.90 Unspecified dementia, unspecified severity, without behavioral disturbance, psychotic disturbance, mood disturbance, and anxiety; E11.9 Type 2 diabetes mellitus without complications; R32 Unspecified urinary incontinence; R63.4 Abnormal weight loss; K44.9 Diaphragmatic hernia without obstruction or gangrene; I71.4 Abdominal aortic aneurysm, without rupture; D64.9 Anemia, unspecified; I51.3 Intracardiac thrombosis, not elsewhere classified; I48.0 Paroxysmal atrial fibrillation; K29.70 Gastritis, unspecified, without bleeding; M47.812 Spondylosis without myelopathy or radiculopathy, cervical region; D50.9 Iron deficiency anemia, unspecified; N40.1 Benign prostatic hyperplasia with lower urinary tract symptoms; R33.8 Other retention of urine; K26.9 Duodenal ulcer, unspecified as acute or chronic, without hemorrhage or perforation; E87.6 Hypokalemia; G40.909 Epilepsy, unspecified, not intractable, without status epilepticus; F32.9 Major depressive disorder, single episode, unspecified; E78.5 Hyperlipidemia, unspecified; Z86.73 Personal history of transient ischemic attack (TIA), and cerebral infarction without residual deficits